=== PATIENT | female | born 1960 | race Caucasian/White ===

== ENCOUNTER 2020-12-02 14:18 | Emergency (ER) | payer OTHER, SELFPAY ==
[2020-12-02] VITALS (20 sets, daily range): BP systolic 106–160; BP diastolic 58–125; PULSE 63–78; RESP 12–20; TEMP 36.2; O2SAT 94–100
--- NOTE | ~2020-12-02 | CT_ITS ---
EXAMINATION: CT brain wo con DATE: 12/02/2020 14:26 INDICATION: Left facial droop and facial tingling. Slurred speech. TECHNIQUE: Computed tomography (CT) of the head was performed without intravenous contrast. The mA wa s adjusted according to patient size. Iterative reconstruction technique was employed. Exam dose: 60 5.33 mGy-cm total exam DLP. COMPARISON: 02/24/2019 CT brain FINDINGS: Chronic lacunar infarct at left anterior limb of internal capsule, left basal ganglia; this was subacute on 02/24/2019 CT brain. This previously effacement of the left frontal horn, which is no longer noted. There is no midline shift or mass effect effect. No intracranial mass lesion or hemorrhage. Normal ventricular size. Bilateral carotid siphon internal carotid artery calcifications are noted. No subdural or epidural hematoma. No fracture or bone destruction of the cranial vault. Included paranasal sinuses and mastoid air cell s are unremarkable. IMPRESSION: Chronic lacunar infarct at left anterior limb of internal capsule and left basal ganglia No acute intracranial finding Reviewed, dictated and finalized at [facility]. Reviewed, dictated and finalized at location [facility]. JOINER LOCKSTITCH
--- NOTE | 2020-12-02 14:33 | ED.NEUROSD ---
HPI - Neuro Symptoms/Deficit General Chief Complaint: Suspected CVA Stated Complaint: cva Time Seen by Provider: 12/02/20 14:33 History of Present Illness HPI Narrative: 60 yo female w/ h/o previous left sided stroke presents to the ED for stroke like symptoms. She first noted symptoms around 9 AM. At that time she noted numbness to the left side of her face. Shortly after that she noted slurred speech and facial droop. She then began to feel that the left sided of her body was slightly weaker than the right. She is currently being treated for bilateral otitis media. She denies any residual symptoms from her previous stroke. Related Data Allergies Allergy/AdvReac Type Severity Reaction Status Date / Time etodolac Allergy Unknown Unknown Verified 12/02/20 14:48 ibuprofen Allergy Unknown Palpitation Verified 12/02/20 14:48 s poison janet extract Allergy Unknown Unknown Verified 12/02/20 14:48 prednisone Allergy Unknown Unknown Verified 12/02/20 14:48 topiramate Allergy Unknown Unknown Verified 12/02/20 14:48 tramadol Allergy Unknown Unknown Verified 12/02/20 14:48 lodine Allergy Mild passed out Uncoded 12/02/20 14:48 Review of Systems Review of Systems: All systems reviewed & are unremarkable except as noted in HPI and below Constitutional: Constitutional: Denies chills and Denies fever(s) Eyes: Eyes: Reports no additional eye complaints ENT: Reports otalgia Cardiovascular: Cardiovascular: Denies chest pain and Denies dyspnea Respiratory: Respiratory: Denies dyspnea Gastrointestinal: Gastrointestinal: Reports no additional gastrointestinal complaints Genitourinary: Genitourinary: Reports no additional female genitourinary complaints Neurologic: Reports Abnormal speech present, Denies lack of coordination and Reports weakness PMFSH Past Medical History Medical History Acute cerebral infarction BMI 28.0-28.9,adult BMI 29.0-29.9,adult BMI 30.0-30.9,adult Hypothyroidism (acquired) Otitis media Uncontrolled type 2 diabetes mellitus with hyperglycemia Family History Family History Mother Diabetes mellitus Cerebrovascular accident Family history of pancreatic cancer Family history of thyroid disease Father Hypertension Family history of elevated blood lipids Sibling Diabetes mellitus Social History Social History Smoking status: Never smoker Second hand tobacco smoke exposure: Yes Alcohol intake: never Substance use: never Substance use type: does not use 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 Exam Const: General: healthy appearing, no acute distress and alert Orientation/consciousness: patient oriented x3 HENMT: Head: atraumatic Ears: TM abnormal erythematous bilateral Eyes: General: appearance normal, both eyes and all related structures Pupils: Equal, round and reactive pupils present EOM: EOMs intact bilaterally Neck: Neck: normal visual inspection Chest: Chest palpation & inspection: no tenderness Resp: Effort & Inspection: normal respiratory effort Auscultation: clear to auscultation bilaterally, no rales, no rhonchi and no wheezes Cardio: Jugular venous distension: no JVD Rate: regular rate Rhythm: regular rhythm Heart sounds: no murmurs GI: Inspection: non-distended GI Palp: Yes Soft to palpation and No Tenderness to palpation present (GI) Skin: General skin exam: normal color Neuro: General: patient oriented x3 and moves all extremities Cranial nerves: Yes Other cranial nerve findings present (left sided facial droop + inability to wrinkle forehead/raise eyebrow) Speech: normal speech Motor exam (neuro): Pronator motor function not present and Other motor observations present (5/5 BLE. Minimal decrease in left hip flexion) Extrem: General: no edema
--- NOTE | 2020-12-02 14:51 | ECG_ITS ---
Measurements Intervals [place] Rate: 62 P: 13 IA: 160 QRS: 58 QRSD: 102 T: 44 QT: 404 QTc: 410 Interpretive Statements SINUS RHYTHM NORMAL ECG Electronically Signed On 12-02-2020 15:46:15 RN ACUTE by Roberto Hammer D.O.
[2020-12-02 14:59] LABS: Glucose Point of Care 155 (65-105)
[2020-12-02 15:10] LABS: INR 0.9; Prothrombin Time 12.6 Seconds (11.1-14.7)
[2020-12-02 15:11] LABS: Partial Thromboplastin Time 26.9 SECONDS (22.3-36.8)
[2020-12-02 15:14] LABS: Alanine Aminotransferase 24 U/L (4-35); Albumin Level 4.4 g/dL (3.5-5.1); Alkaline Phosphatase 97 U/L (38-126); Anion Gap 8 mmol/L (8-16); Aspartate Amino Transferase 29 U/L (14-36); Bilirubin,Total 0.7 mg/dL (0.2-1.3); Blood Urea Nitrogen 10 mg/dL (7-17); Calcium 9.2 mg/dL (8.4-10.2); Carbon Dioxide 33 mmol/L (22-30); Chloride 100 mmol/L (98-107); Estimated CRCL calculation 67 ml/min; Estimated Glomerular Filt Rate > 60; Glucose 177 mg/dL (65-105); Potassium 3.6 mmol/L (3.4-5.0); Sodium 141 mmol/L (137-145)
[2020-12-02 16:01] LABS: Basophils Absolute Auto 0.1 K/mm3 (0.0-0.1); Basophils Percent Auto 0.9 % (0.2-1.2); Eosinophils Absolute Auto 0.2 K/mm3 (0-0.3); Eosinophils Percent Auto 4.2 % (0-4.4); Hematocrit 38.6 % (37.0-47.0); Hemoglobin 13.4 g/dL (12.0-15.0); Immature Granulocyte Absolute 0.03 K/mm3 (0.00-0.031); Immature Granulocyte Percent A 0.6 % (0-0.5); Lymphocytes Absolute Auto 1.51 K/mm3 (0.9-3.2); Lymphocytes Percent Auto 28.5 % (18.3-44.2); Mean Corpuscular HGB Conc 34.7 g/dl (32-36); Mean Corpuscular Hemoglobin 31.2 pg (26-34); Mean Platelet Volume 8.8 fl (7.4-10.4); Monocytes Absolute Auto 0.3 K/mm3 (0.1-0.6); Monocytes Percent Auto 4.9 % (2.6-8.5); Neutrophils Absolute Auto 3.2 K/mm3 (1.3-6.7); Neutrophils Percent Auto 60.9 % (45.5-73.1); Platelet Count Result 245 k/mm3 (150-375); Red Blood Count 4.29 M/mm3 (4.2-5.4); Red Cell Distribution Width 12.9 % (11.5-14.5); White Blood Count 5.3 K/mm3 (4.5-10.0)
[2020-12-02 16:27] LABS: Add Urine Microscopic? NO; Appearance Urine Clear (Clear); Bilirubin Urine Negative (Negative); Blood Urine Negative (Negative); Color Urine Colorless (Yellow); Glucose Urine UA Negative (Negative); Ketones Urine Negative (Negative); Leukocyte Esterase Ur Negative LEU/UL (Negative); Nitrate Urine Negative (Negative); Protein Urine Negative (Negative); Specific Grav Ur 1.005 (1.001-1.035); Urobilinogen Urine Negative mg/dL (<2.0)
--- NOTE | 2020-12-02 16:27 | PC.NURSE ---
Dr. Clark at bedside to discuss results with pt.
[2020-12-02] MEDS: valACYclovir HCL 500 MG TABLET 1000 MG PO (16:47)
== END 2020-12-02 16:57 | disposition home or self-care (01) ==
PROVIDERS: Emergency Provider Emergency Medicine; PCP Family Medicine
DX: G51.0 Bell's palsy (principal); H66.93 Otitis media, unspecified, bilateral; E03.9 Hypothyroidism, unspecified; E11.65 Type 2 diabetes mellitus with hyperglycemia; Z86.73 Personal history of transient ischemic attack (TIA), and cerebral infarction without residual deficits; Z79.84 Long term (current) use of oral hypoglycemic drugs
CPT/HCPCS: 36415; 70450; 80053; 81003; 82948; 85025; 85610; 85730; 93005; 99284; A9270

== ENCOUNTER 2020-12-21 09:07 | Observation (INO) | payer OTHER, SELFPAY ==
[2020-12-21] VITALS (10 sets, daily range): BP systolic 114–146; BP diastolic 51–80; PULSE 57–80; RESP 16–22; TEMP 36.3–36.9; O2SAT 95–100; BMI 28.8
--- NOTE | 2020-12-21 | ECHO_ITS ---
Patient Info Name: Angella Ward Age: 60 years : 1960 Gender: Female Ht: 61 in Wt: 152 lbs BSA: 1.75 m2 HR: 63 bpm BP: 121 / 60 mmHg Heart Rhythm: Sinus Rhythm Technical Quality: Good Exam Date: 12/21/2020 3:48 PM Exam Location: [facility] Pulmonary Exam Room: [facility] [place] Patient Status: Inpatient Admit Date: 12/21/2020 Staff Ordering Physician: Fouzia Cabezas NP Book Or Script Editor: Lisette Chaney RDCS Attending Provider: Mirna Mckeon MD Referring Physician: Jocelynn VARGHESE; Exam Type: CA echo doppler color flow Study Info Indications - CHEST PAIN Complete two-dimensional, color flow and Doppler transthoracic echocardiogram is performed. Summary 1. Complete two-dimensional, color flow and Doppler transthoracic echocardiogram is performed. 2. Left ventricular chamber dimension is normal. 3. Left ventricular systolic function is normal, estimated at 65-70%. 4. No wall motion abnormalities. 5. There is mild aortic valve sclerosis. Left Ventricle Left ventricular chamber dimension is normal. Left ventricular systolic function is normal, estimated at 65-70%. The left ventricular diastolic function is normal. No wall motion abnormalities. Right Ventricle Right ventricular chamber dimension is normal. Left Atria Left atrial chamber dimension is normal. Right Atria Right atrial chamber dimension is normal. Aortic Valve The aortic valve is trileaflet. There is mild aortic valve sclerosis. Pulmonic Valve The pulmonic valve is normal. Mitral Valve The mitral valve has normal leaflets. Tricuspid Valve The tricuspid valve leaflets are normal. Pericardium/Pleural The pericardium appears normal. Aorta The aortic root size at the sinus of Valsalva is normal. Left Ventricular Outflow Tract Name Value Normal LVOT 2D LVOT Diameter 2.0 cm LVOT Doppler LVOT Peak Gradient 4 mmHg LVOT Mean Gradient 2 mmHg LVOT VTI 21 cm LVOT VTI/AV VTI Ratio 0.8 LVOT Stroke Volume 67 ml LVOT CO 14.3 l/min LVOT CI 8.2 l/min/m2 Pulmonic Valve Name Value Normal PV Doppler PV Peak Gradient 3 mmHg Mitral Valve Name Value Normal MV Doppler MV Decel [place] 294 cm/s2 MV PHT 62 ms MV Area (PHT) 3.5 cm2 4.0-5.0 MV Diastolic Function
--- NOTE | ~2020-12-21 | XR_ITS ---
EXAMINATION: XR chest 1V portable EXAM DATE: 12/21/2020 10:18 INDICATION: Chest pain 2 times a day. TECHNIQUE: Portable AP frontal chest x-ray was obtained. Comparison is made to prior examination from 02/14/2019. FINDINGS: Right lateral sulcal granuloma. The lungs are otherwise clear. There are no pleural effusi ons. The cardiomediastinal silhouette is within normal limits. There is no pneumothorax suspected. The bones and soft tissues are unremarkable. IMPRESSION: No acute cardiopulmonary findings. Reviewed, dictated and finalized at location [facility].
[2020-12-21] MEDS: ASPIRIN 81 MG CHEWABLE TABLET 162 MG PO (09:36)
--- NOTE | 2020-12-21 09:45 | ED.CHESTPAIN ---
HPI - Chest Pain General Chief Complaint: Chest Pain <Gelacio Mcclain PA-C - Last Filed: 12/21/20 11:34> Stated Complaint: resolved CP <Gelacio Mcclain PA-C - Last Filed: 12/21/20 11:34> Source: patient <Gelacio Mcclain PA-C - Last Filed: 12/21/20 11:34> Mode of arrival: ambulatory <Gelacio Mcclain PA-C - Last Filed: 12/21/20 11:34> Limitations: no limitations <Gelacio Mcclain PA-C - Last Filed: 12/21/20 11:34> History of Present Illness HPI narrative: Patient 60-year-old female who presents with an episode of sharp pain in the substernal region left-sided persisted for several minutes and resolved and then experienced fatigue and has continued heaviness over the chest. Patient notes yesterday she felt fatigued but otherwise has felt fine in the recent past. Patient denies any fever chills nausea vomiting. Patient had Field's palsy 3 weeks ago which is nearly resolved involve the left side of the face. Patient denies injury or trauma or other complaints patient has been compliant with her medication <Gelacio Mcclain PA-C - Last Filed: 12/21/20 11:34> Related Data Allergies/Adverse Reactions: Allergies Allergy/AdvReac Type Severity Reaction Status Date / Time iodine Allergy Mild Other Verified 12/21/20 09:29 etodolac Allergy Unknown Unknown Verified 12/21/20 09:20 ibuprofen Allergy Unknown Palpitation Verified 12/21/20 09:20 s poison janet extract Allergy Unknown Unknown Verified 12/21/20 09:20 prednisone Allergy Unknown Unknown Verified 12/21/20 09:20 tramadol Allergy Unknown Unknown Verified 12/21/20 09:20 topiramate AdvReac Unknown Elevated Verified 12/21/20 09:20 glucose <Gelacio Mcclain PA-C - Last Filed: 12/21/20 11:34> Review of Systems Review of Systems: All systems reviewed & are unremarkable except as noted in HPI and below <Gelacio Mcclain PA-C - Last Filed: 12/21/20 11:34> PMFSH Past Medical History Medical History: Medical History Acute cerebral infarction Field's palsy BMI 28.0-28.9,adult BMI 29.0-29.9,adult BMI 30.0-30.9,adult Hypothyroidism (acquired) Otitis media Uncontrolled type 2 diabetes mellitus with hyperglycemia <Gelacio Mcclain PA-C - Last Filed: 12/21/20 11:34> Family History Family History: Family History (Reviewed 12/16/20 @ 15:31 by Idalia Livingston, [facility]) Mother Diabetes mellitus Cerebrovascular accident Family history of pancreatic cancer Family history of thyroid disease Father Hypertension Family history of elevated blood lipids Sibling Diabetes mellitus <Gelacio Mcclain PA-C - Last Filed: 12/21/20 11:34> Social History Social History: Social History Second hand tobacco smoke exposure: Yes Alcohol intake: never Substance use: never Substance use type: does not use 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 <Gelacio Mcclain PA-C - Last Filed: 12/21/20 11:34> Exam Narrative: Exam Narrative: GENERAL: Well-appearing, well-nourished, and in no acute distress. HEAD: Normocephalic, atraumatic. EYES: PERRLA and EOMI. ENT: Nares clear, no rhinorrhea or epistaxis. Mucous membranes moist. CHEST: Clear to auscultation. No respiratory distress. No wheezes rales or rhonchi HEART: Regular rate and rhythm. No murmur heard. Normal peripheral pulses. ABDOMEN: Soft, nontender, nondistended, normal active bowel sounds. EXTREMITIES: Normal range of motion. No edema. SKIN: Warm, dry, no rash. NEURO: No focal deficits. Alert and oriented x3. Cranial nerves II through XII grossly intact PSYCH: Normal mood and affect. <Gelacio Mcclain PA-C - Last Filed: 12/21/20 11:34> Course Course Emergency Course: Patient was found to be hyperglycemic had resolution of chest pain after nitroglycerin has remained chest pain-free only sy
[2020-12-21 10:04] LABS: Basophils Percent Auto 0.2 % (0.2-1.2); Eosinophils Absolute Auto 0.2 K/mm3 (0-0.3); Eosinophils Percent Auto 1.4 % (0-4.4); Hemoglobin 16.4 g/dL (12.0-15.0); Immature Granulocyte Absolute 0.08 K/mm3 (0.00-0.031); Immature Granulocyte Percent A 0.7 % (0-0.5); Lymphocytes Absolute Auto 2.07 K/mm3 (0.9-3.2); Lymphocytes Percent Auto 17.5 % (18.3-44.2); Mean Corpuscular HGB Conc 34.9 g/dl (32-36); Mean Corpuscular Hemoglobin 31.3 pg (26-34); Mean Corpuscular Volume 89.7 fl (80-100); Mean Platelet Volume 9.1 fl (7.4-10.4); Monocytes Absolute Auto 0.5 K/mm3 (0.1-0.6); Monocytes Percent Auto 4.4 % (2.6-8.5); Neutrophils Percent Auto 75.8 % (45.5-73.1); Platelet Count Result 299 k/mm3 (150-375); Red Blood Count 5.24 M/mm3 (4.2-5.4); Red Cell Distribution Width 13.7 % (11.5-14.5); White Blood Count 11.9 K/mm3 (4.5-10.0)
[2020-12-21 10:16] LABS: Alanine Aminotransferase 42 U/L (4-35); Albumin Level 4.6 g/dL (3.5-5.1); Alkaline Phosphatase 105 U/L (38-126); Anion Gap 6 mmol/L (8-16); Aspartate Amino Transferase 25 U/L (14-36); Bilirubin,Total 1.1 mg/dL (0.2-1.3); Blood Urea Nitrogen 16 mg/dL (7-17); Calcium 9.3 mg/dL (8.4-10.2); Carbon Dioxide 34 mmol/L (22-30); Chloride 94 mmol/L (98-107); Estimated CRCL calculation 52 ml/min; Estimated Glomerular Filt Rate > 60; Glucose 459 mg/dL (65-105); INR 0.8; Lipase 164 U/L (23-300); Potassium 4.2 mmol/L (3.4-5.0); Prothrombin Time 11.9 Seconds (11.1-14.7); Sodium 134 mmol/L (137-145)
[2020-12-21 10:18] LABS: Add Urine Microscopic? YES; Appearance Urine Clear (Clear); Bilirubin Urine Negative (Negative); Blood Urine Negative (Negative); Color Urine Yellow (Yellow); Glucose Urine UA 3+ mg/dL (Negative); Ketones Urine Negative (Negative); Leukocyte Esterase Ur Negative LEU/UL (Negative); Nitrate Urine Negative (Negative); Protein Urine Negative (Negative); RBC Urine 0-2 /hpf (0-2); Squamous Epithelial Cell Urine Occasional /hpf (Few); Urobilinogen Urine Negative mg/dL (<2.0); WBC Urine 0-3 /hpf
[2020-12-21 10:19] LABS: Specific Grav Ur 1.037 (1.001-1.035)
[2020-12-21 10:28] LABS: Troponin I < 0.012 ng/mL (0.000-0.034)
[2020-12-21 10:31] LABS: D Dimer 0.27 ug/mL (<0.48)
[2020-12-21] MEDS: SODIUM CHLORIDE 0.9% IV 1,000 ML 999 ML IV CONT (10:42)
[2020-12-21 10:54] LABS: Alveolar/Arterial O2 Gradient 33.3 mmHg; Base Excess ABG 3.1 mEq/l (+/-2.0); Carboxyhemoglobin 0.7 % THb (0-2.0); Fractional Inspired Oxygen 21 %; HCO3 ABG 26.8 mEq/l (22.0-26.0); Methemoglobin ABG 0.3 %THb (0-1.5); Oxygen Content ABG 18.7 %vol (16.0-22.0); Oxygen Saturation ABG 95.2 % (95.0-100.0); Oxyhemoglobin 92.9 % THb (90.0-100.0); PCO2 ABG 37.9 mmHg (35.0-45.0); PO2 FiO2 Ratio Arterial Blood 3.38 %; Reduced Hemoglobin 6.1 %THb (0-5.0); Total Hemoglobin 14.3 g/dL (12.0-18.0); pH ABG 7.467 (7.350-7.450)
[2020-12-21 10:55] LABS: Device ROOM AIR; Modified Allen's Test Pass; Site Drawn RIGHT RADIAL
[2020-12-21 11:28] LABS: Magnesium 1.7 mg/dL (1.6-2.3)
[2020-12-21 11:54] LABS: Beta-Hydroxybutyrate/Acetoacetate 0.16 mmol/L (0.02-0.27)
[2020-12-21 13:02] LABS: Cholesterol 149 mg/dL (0-200); HDL Direct 31 mg/dL; Triglycerides 315 mg/dL (<150)
[2020-12-21 13:12] LABS: LDL Cholesterol Direct 85 mg/dL; Troponin I < 0.012 ng/mL (0.000-0.034)
--- NOTE | 2020-12-21 14:01 | ADMGEN ---
This patient, Angella Ward, was admitted to IMU Room 206-01 at 1400. Patient/family oriented to hospital policies and general routines including ID bracelet, bed and alarms, visiting hours, pain management, procedures, bathroom and other care routines, personal items, smoking policy, room service/diet, and visiting hours. Information on how to activate the Rapid Response Team has been discussed. Patient/Family are encouraged to report perceived risks to care and to ask questions if they do not understand what they are told or what they should do.
--- NOTE | 2020-12-21 14:41 | PM.IMHP ---
H&P: HPI History of Present Illness Date/Time: 12/21/20 14:41 this is a 60-year-old diabetic patient who recently was diagnosed with Field's palsy. She has been on prednisone and her blood sugars have been running high. The patient stated that she was at work today and she developed some chest pressure as well as diaphoresis. She was not sure if this was her acid reflux but it felt a little bit different that her acid reflux. She does have a history of having severe GERD. It did not radiate anywhere the patient had episode of sharp pain in the substernal region left-sided persisted for several minutes and resolved and then experience fatigue and has continued heaviness over the chest. The patient also felt fatigued yesterday. No fever no chills. No nausea no vomiting. This did not radiate to her neck or arm. Patient stated that the pain has subsided. Her blood sugar was noted to be 459. Her troponin was negative. Lipase was negative but her magnesium is 1.7. Her white count was noted to be 11.9. Heart score was noted to be a 4. Sinus rhythm. Chest x-ray was read as no acute cardiopulmonary findings. The patient was given aspirin and IV fluids. The patient has no complaints of discomfort at this time. The patient is being admitted to observation date of service of 12/21/2020. Chief Complaint: Chest pain Review of Systems Review of Systems: All systems reviewed & are unremarkable except as noted in HPI and below Constitutional: Constitutional: Reports as per HPI and Reports no additional constitutional complaints Eyes: Eyes: Reports as per HPI and Reports no additional eye complaints ENT: Reports system reviewed and no additional complaints, except as documented and Reports Normal hearing present Cardiovascular: Cardiovascular: Reports no additional cardiovascular complaints Respiratory: Respiratory: Reports no additional respiratory complaints and Reports no additional respiratory complaints Gastrointestinal: Gastrointestinal: Reports as per HPI and Reports no additional gastrointestinal complaints Musculoskeletal: Musculoskeletal: Reports no additional musculoskeletal complaints Integumentary/Breasts: Skin/Breast: Reports system reviewed and no additional complaints, except as docu and Reports as per HPI Neurologic: Reports system reviewed and no additional complaints, except as documented, Reports as per HPI and Reports Normal hearing present Psychiatric: Psychiatric: Reports no additional psychiatric complaints and Reports as per HPI Endocrine: Endocrine: Reports no additional endocrine complaints Hematologic/Lymphatic: Hematologic/Lymphatic: Reports no additional hematologic/lymphatic complaints Allergic/Immunologic: Allergic/Immunologic: Reports no additional allergic/immunologic complaints [facility] Past Medical History Medical History (Updated 12/21/20 @ 14:49 by Fouzia Cabezas NP) Acute cerebral infarction Field's palsy BMI 28.0-28.9,adult BMI 29.0-29.9,adult BMI 30.0-30.9,adult Hyperlipidemia Hypothyroidism (acquired) Otitis media Uncontrolled type 2 diabetes mellitus with hyperglycemia Surgical History Surgical History (Updated 12/21/20 @ 14:56 by Fouzia Cabezas NP) H/O left knee surgery History of tonsillectomy S/P foot surgery, left Family History Family History Mother Diabetes mellitus Cerebrovascular accident Family history of pancreatic cancer Family history of thyroid disease Father Hypertension Family history of elevated blood lipids Sibling Diabetes mellitus Social History Social History (Updated 12/21/20 @ 14:58 by Fouzia Cabezas NP) Social History: The patient works at a [employer]. The patient lives with her and she has 3 sons. The patient is a lifelong nonsmoker. She does not use any marijuana, alcohol or illicit drugs. Patient desires to be a full code. Her is a durable
[2020-12-21 15:29] LABS: Troponin I < 0.012 ng/mL (0.000-0.034)
[2020-12-21] MEDS: INSULIN ASPART (*BKC) 100 UNITS/ML SUB-Q (16:10)
--- NOTE | 2020-12-21 16:38 | PM.CNCAR ---
Assessment and Plan Additional Plan 60-year-old woman with: Episode of chest pain that was self-limited this morning while she was at work. Symptoms on the surface are rather atypical and not very suggestive of myocardial ischemia. She does have risk factors including hypertension non insulin-dependent diabetes and dyslipidemia. She is a lifelong nonsmoker. She has already ruled out for ACS with 3-troponin levels. Because of her risk factor profile I am going to request a stress echocardiogram to be done tomorrow morning. Hopefully that will be negative and if so she can be dismissed for follow-up with her PCP. Abdoulaye Vail MD [facility] History of Present Illness History of Present Illness Consult date/time: 12/21/20 16:38 Consult reason: chest pain Reason For Visit: Chest pain, hyperglycemia Narrative: This is a very pleasant 60-year-old lady I saw at this afternoon at the request of the hospitalist because of chest pain for which she was seen in the emergency room this morning. 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 The patient describes a sharp knife-like pain in the left precordial region that lasted for about 3-5 minutes she estimates. She reported the symptoms to coworkers and an ambulance was called and she was brought to the emergency room for further evaluation and management. In the emergency room she was asymptomatic she had an evaluation done there that showed her ECG to be normal her troponins were negative and she was admitted for further observation/management. She is enjoying her lunch when I entered the room to see her in does not offer any other complaints. She states that she has never been known to have any cardiac problems in the past she does not exert herself in an exercise program of any sort but she does lead a reasonably active lifestyle and has not noticed exertional symptoms of any kind. She specifically denies any exertional chest pain pressure or heaviness she has not been having palpitations orthopnea PND or edema she has never had a syncopal episode. Review of Systems Constitutional: Constitutional: Reports no additional constitutional complaints Eyes: Eyes: Reports no additional eye complaints ENT: Reports system reviewed and no additional complaints, except as documented Cardiovascular: Cardiovascular: Reports as per HPI Respiratory: Respiratory: Reports no additional respiratory complaints Gastrointestinal: Gastrointestinal: Reports no additional gastrointestinal complaints Musculoskeletal: Musculoskeletal: Reports no additional musculoskeletal complaints Integumentary/Breasts: Skin/Breast: Reports system reviewed and no additional complaints, except as docu Neurologic: Reports system reviewed and no additional complaints, except as documented Endocrine: Endocrine: Reports no additional endocrine complaints Hematologic/Lymphatic: Hematologic/Lymphatic: Reports no additional hematologic/lymphatic complaints Allergic/Immunologic: Allergic/Immunologic: Reports no additional allergic/immunologic complaints PMFSH Past Medical History Medical History (Updated 12/21/20 @ 14:49 by Fouzia Cabezas NP) Acute cerebral infarction Field's palsy BMI 28.0-28.9,adult BMI 29.0-29.9,adult BMI 30.0-30.9,adult Hyperlipidemia Hypothyroidism (acquired) Otitis media Uncontrolled type 2 diabetes mellitus with hyperglycemia Surgical History Surgical History (Updated 12/21/20 @ 14:56 by Fouzia Cabezas NP) H/O left knee surgery History of tonsillectomy S/P foot surgery, left Family History Family History Mother Diabetes mellitus Cerebrovascular accident Family history of pancreatic cancer Family history of thyroid disease Father Hyperte
[2020-12-21 16:44] LABS: Troponin I < 0.012 ng/mL (0.000-0.034)
[2020-12-21 16:56] LABS: Glucose Point of Care 287 (65-105)
--- NOTE | 2020-12-21 17:34 | ECG_ITS ---
Measurements Intervals [place] Rate: 76 P: 41 PA: 150 QRS: 13 QRSD: 97 T: 24 QT: 362 QTc: 408 Interpretive Statements SINUS RHYTHM MINIMAL Q WAVES- INFERIOR LEADS BASELINE ARTIFACT- I, II, AVR, AVL, V6 BORDERLINE ECG Electronically Signed On 12-21-2020 12:45:08 CDT by Roberto Hammer D.O.
[2020-12-21 20:50] LABS: Glucose Point of Care 221 (65-105)
[2020-12-21] MEDS: ACETAMINOPHEN 325 MG TABLET 650 MG PO (23:16)
[2020-12-22] VITALS (11 sets, daily range): BP systolic 108–114; BP diastolic 47–64; PULSE 52–89; RESP 14–16; TEMP 35.7–36.7; O2SAT 94–100; BMI 29.5
--- NOTE | 2020-12-22 | EST_ITS ---
Patient Info Name: Angella Ward Age: 60 years : 1960 Gender: Female Ht: 61 in Wt: 152 lbs BSA: 1.75 m2 Heart Rhythm: Sinus Rhythm Technical Quality: Good Exam Date: 12/22/2020 11:16 AM Exam Location: [facility] Pulmonary Patient Status: Inpatient Admit Date: 12/21/2020 Staff Ordering Physician: Abdoulaye Vail MD Beater Engineer Helper: Jayce Bender RDCS, RT Attending Provider: hemant webster md Referring Physician: Yared RAYMOND; Exercise Technologist: Rosario Nix RDCS Exercise Physician: Hemant Webster MD Exam Type: CA stress echo Study Info Indications R07.9 - Chest pain, unspecified Treadmill exercise stress echocardiogram is performed. Summary 1. At rest, normal left ventricular systolic function with no regional wall motion abnormalities noted at rest with exception of septal bounce. 2. Left ventricular ejection fraction hyperdynamic without wall motion abnormalities, smaller chamber size post stress. 3. No abnormal ST/T wave changes with exercise. 4. No arrhythmias were observed during the examination. 5. Negative stress echocardiogram for ischemia by wall motion analysis. 6. Maximal treadmill stress EKG study achieving 89% of age predicted maximum heart rate and 4.7 METs at peak exercise.\E\. 7. Poor exercise tolerance for age. 8. Normal heart rate and blood pressure response to exercise. 9. No stress-induced chest pain or arrhythmias. 10. Rosa treadmill score +2 indicating intermediate risk for adverse cardiovascular events over the next 5 years. Clinical correlation advised. Stress Echo Findings Left Ventricle At rest, normal left ventricular systolic function with no regional wall motion abnormalities noted at rest with exception of septal bounce. Left ventricular ejection fraction hyperdynamic without wall motion abnormalities, smaller chamber size post stress. Normal augmentation of all wall segments without evidence of ischemia with stress. Protocol: Jayce Stress ECG Details Stage: REST Duration (min): 11 min : 37 sec Speed (mph): 0.0 Grade (%): 0 HR (bpm): 65 SBP (mmHg): 121 DBP (mmHg): 65 METS: --- Stage: REST Duration (min): 19 min : 0 sec Speed (mph): 0.0 Grade (%): 0 HR (bpm): 79 SBP (mmHg): 121 DBP (mmHg): 65 METS: --- Stage: STAGE 1 Duration (min): 1 min : 0 sec Speed (mph): 1.7 Grade (%): 10 HR (bpm): 114 SBP (mmHg): 121 DBP (mmHg): 65 METS: --- Stage: STAGE 1 Duration (min): 2 min : 0 sec Speed (mph): 1.7 Grade (%): 10 HR (bpm): 139 SBP (mmHg): 121 DBP (mmHg): 65 METS: --- Stage: STAGE 1 Duration (min): 2 min : 13 sec Speed (mph): 1.7 Grade (%): 10 HR (bpm): 142 SBP (mmHg): 121 DBP (mmHg): 65 METS: --- Stage: RECOVERY Duration (min): 0 min : 46 sec Speed (mph): 0.0 Grade (%): 0 HR (bpm): 113 SBP (mmHg): 184 DBP (mmHg): 121 METS: --- Stage: RECOVERY Duration (min): 1 min : 46 sec Speed (mph): 0.0 Grade (%): 0 HR (bpm): 78 SBP (mmHg): 184 DBP (mmHg): 121 METS: --- Stage: RECOVERY Duration (min): 2 min :
[2020-12-22 05:29] LABS: Alanine Aminotransferase 29 U/L (4-35); Albumin Level 3.4 g/dL (3.5-5.1); Alkaline Phosphatase 78 U/L (38-126); Anion Gap 3 mmol/L (8-16); Aspartate Amino Transferase 22 U/L (14-36); Bilirubin,Total 0.6 mg/dL (0.2-1.3); Blood Urea Nitrogen 12 mg/dL (7-17); Calcium 8.1 mg/dL (8.4-10.2); Carbon Dioxide 32 mmol/L (22-30); Chloride 100 mmol/L (98-107); Estimated CRCL calculation 65 ml/min; Estimated Glomerular Filt Rate > 60; Glucose 247 mg/dL (65-105); Magnesium 1.6 mg/dL (1.6-2.3); Potassium 3.5 mmol/L (3.4-5.0); Sodium 135 mmol/L (137-145)
[2020-12-22 05:35] LABS: Hemoglobin A1C 9.2 % (<5.7)
[2020-12-22 08:40] LABS: Glucose Point of Care 218 (65-105)
[2020-12-22] MEDS: LEVOTHYROXINE SODIUM 100 MCG TABLET PO (08:47)
[2020-12-22] MEDS: POTASSIUM CHLORIDE 20 MEQ TABLET 40 MEQ PO (08:47)
[2020-12-22] MEDS: metFORMIN HCL XR 500 MG TAB.SR.24H 2000 MG PO (08:47)
[2020-12-22] MEDS: PANTOPRAZOLE 40 MG TABLET PO (08:47)
[2020-12-22] MEDS: MAGNESIUM OXIDE 400 MG TABLET PO (08:47)
[2020-12-22] MEDS: lisinopriL 10 MG TABLET PO (08:47)
[2020-12-22] MEDS: ATORVASTATIN 40 MG TABLET 80 MG PO (08:48)
[2020-12-22] MEDS: ASPIRIN 81 MG CHEWABLE TABLET 160 MG PO (08:48)
[2020-12-22] MEDS: INSULIN ASPART (*BKC) 100 UNITS/ML SUB-Q (08:52)
[2020-12-22 12:36] LABS: Glucose Point of Care 179 (65-105)
--- NOTE | 2020-12-22 13:10 | PM.PNCARD ---
Progress Note: A&P Assessment and Plan (1) Chest pain: Code(s): R07.9 - Chest pain, unspecified Status: Acute Assessment and Plan: Resolved, ruled out for myocardial infarction. Negative treadmill stress echocardiogram normal LV size and function with hyperdynamic response without evidence of EKG or echocardiographic ischemia, poor exercise tolerance achieving greater than 85% age predicted maximum heart rate. Follow-up with primary care physician as an outpatient. Atypical chest pain ruled out for PA and with negative stress echocardiogram. Okay for discharge per hospitalist service. Please do not hesitate to contact us with any additional questions or concerns. (2) Hyperlipidemia: Code(s): E78.5 - Hyperlipidemia, unspecified Status: Chronic Assessment and Plan: Continue atorvastatin (3) Essential hypertension: Code(s): I10 - Essential (primary) hypertension Status: Acute Assessment and Plan: BP control (4) Uncontrolled type 2 diabetes mellitus with hyperglycemia: Code(s): E11.65 - Type 2 diabetes mellitus with hyperglycemia Status: Acute Assessment and Plan: Per primary service. Subjective Date/time seen: Date of service: 12/22/20 13:10 Follow-up for chest pain. No recurrent chest pain. No new complaints morning other than feeling tired. Patient evaluated treadmill stress echocardiogram. Negative study without reversible ischemia by EKG or echocardiogram. Patient had poor exercise tolerance no exertional chest pain but complained of feeling fatigued. Review of Systems Review of Systems: All systems reviewed & are unremarkable except as noted in HPI and below Constitutional: Constitutional: Reports as per HPI, Reports no additional constitutional complaints and Reports fatigue Eyes: Eyes: Reports as per HPI and Reports no additional eye complaints ENT: Reports system reviewed and no additional complaints, except as documented and Reports as per HPI Cardiovascular: Cardiovascular: Reports as per HPI and Reports no additional cardiovascular complaints Respiratory: Respiratory: Reports as per HPI and Reports no additional respiratory complaints Gastrointestinal: Gastrointestinal: Reports as per HPI and Reports no additional gastrointestinal complaints Genitourinary: Genitourinary: Reports no additional female genitourinary complaints and Reports as per HPI Musculoskeletal: Musculoskeletal: Reports no additional musculoskeletal complaints and Reports as per HPI Integumentary/Breasts: Skin/Breast: Reports system reviewed and no additional complaints, except as docu and Reports as per HPI Neurologic: Reports system reviewed and no additional complaints, except as documented and Reports as per HPI Psychiatric: Psychiatric: Reports no additional psychiatric complaints and Reports as per HPI Endocrine: Endocrine: Reports no additional endocrine complaints and Reports as per HPI Hematologic/Lymphatic: Hematologic/Lymphatic: Reports no additional hematologic/lymphatic complaints and Reports as per HPI Allergic/Immunologic: Allergic/Immunologic: Reports no additional allergic/immunologic complaints and Reports as per HPI Exam Const: General: comfortable and no acute distress Other: Well-developed well-nourished white female resting comfortably in bed eating her meal HENMT: Mouth: Yes moist mucous membranes Eyes: Sclera: sclerae normal Pupils: Equal, round and reactive pupils present Neck: Neck: supple and no JVD Thyroid: thyroid normal Resp: Effort & Inspection: normal respiratory effort Auscultation: clear to auscultation bilaterally Cardio: Rate: regular rate Rhythm: regular rhythm Other: Patient has a very soft grade 1-2 systolic murmur that does not appear to radiate from the left sternal border GI: Auscultation: normal bowel sounds Skin: General skin exam: normal color Neuro: Cranial nerves: Yes Equal, round and reactiv
--- NOTE | 2020-12-22 13:59 | PM.DS ---
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 She has been on prednisone and her blood sugars have been running high. The patient stated that she was at work today and she developed some chest pressure as well as diaphoresis. She was not sure if this was her acid reflux but it felt a little bit different that her acid reflux. She does have a history of having severe GERD. It did not radiate anywhere the patient had episode of sharp pain in the substernal region left-sided persisted for several minutes and resolved and then experience fatigue and has continued heaviness over the chest. The patient also felt fatigued yesterday. No fever no chills. No nausea no vomiting. This did not radiate to her neck or arm. Patient stated that the pain has subsided. Her blood sugar was noted to be 459. Her troponin was negative. Lipase was negative but her magnesium is 1.7. Her white count was noted to be 11.9. Heart score was noted to be a 4. Sinus rhythm. Chest x-ray was read as no acute cardiopulmonary findings. The patient was given aspirin and IV fluids. The patient has no complaints of discomfort at this time. The patient is being admitted to observation date of service of 12/21/2020. Chief Complaint: Chest pain Hospital Course: Patient 3 sets of cardiac enzymes were negative and there was no acute changes on EKG, NV was ruled out, to further evaluate patient had stress cardiac echo which was essentially normal without any sign or symptoms or ischemia. Patient is clinically stable, will discharge patient to follow up with her primary care provide as soon as possible, patient is instructed if any symptoms redevelop to go to nearest ER. Status at Discharge Functional status at discharge: independent ambulation Overall status at discharge: patient is back to baseline Time Spent with Patient Time attestation: Total time spent providing and/or coordinating discharge services: Patient was seen and examined at the time of the discharge Condition at discharge is stable Code status: Full code. Time spent preparing discharge summary, discharge medications, discussing discharge planning with therapeutic case manager and patient is 35 minutes. Time spent: Greater than 30 minutes Exam Narrative: Exam Narrative: Patient is comfortable, NAD HEENT: eyes are clear and none icteric LUNGS:CTA HEART: RR S1S2 ABD: BS+, Soft and nontender Lower extremities: no edema SKIN: nonjaundiced Neuro: grossly intact. DS: Data Data Completed and Pending Labs on day of discharge: Labs from last 24 hours 12/22/20 12/22/20 12/22/20 11:43 07:48 04:28 Sodium Potassium Chloride Carbon Dioxide Anion Gap BUN Creatinine Estim Creat Clear Calc Estimated GFR Glucose POC Capillary Glucose 179 H 218 H Hemoglobin A1c Calcium Magnesium Total Bilirubin AST ALT Alkaline Phosphatase Troponin I Total Protein Albumin TSH (Reflex) 1.730 12/22/20 12/22/20 12/21/20 04:28 04:28 20:07 Sodium 135 L Potassium 3.5 Chloride 100 Carbon Dioxide 32 H Anion Gap 3 L BUN 12 Creatinine 0.70 Estim Creat Clear Calc 65 Estimated GFR > 60 Glucose 247 H POC Capillary Glucose 221 H Hemoglobin A1c 9.2 H Calcium 8.1 L Magnesium 1.6 Total Bilirubin 0.6 AST 22 ALT 29 Alkaline Phosphatase 78 Troponin I Total Protein 6.0 L Albumin 3.4 L TSH (Reflex) 12/21/20 12/21/20 12/21/20 16:07 16:06 14:45 Sodium Potassium Chloride Carbon Dioxide Anion Gap BUN Creatinine Estim Creat Clear Calc Estimated GFR Glucose POC Capillary Glucose 287 H Hemoglobin A1c Calcium Magnesium Total Bilirubin AST ALT Alkaline Phosphatase
== END 2020-12-22 14:55 | disposition home or self-care (01) ==
LOC: ANHED 11:44 → ANHIMU 16:28
PROVIDERS: Emergency Medicine Emergency Medical Services; Nurse Practitioner; Admitting Provider Family Medicine; Emergency Provider Emergency Medicine; PCP Family Medicine; Visit Provider Family Medicine
DX: R07.9 Chest pain, unspecified (principal); E11.65 Type 2 diabetes mellitus with hyperglycemia; I10 Essential (primary) hypertension; E78.2 Mixed hyperlipidemia; K21.9 Gastro-esophageal reflux disease without esophagitis; E03.9 Hypothyroidism, unspecified; G51.0 Bell's palsy; Z86.73 Personal history of transient ischemic attack (TIA), and cerebral infarction without residual deficits; Z79.84 Long term (current) use of oral hypoglycemic drugs
CPT/HCPCS: 36415; 36600; 71045; 80053; 80061; 81001; 82010; 82375; 82805; 82948; 83036; 83050; 83690; 83735; 84443; 84484; 85025; 85380; 85610; 85730; 93005; 93306; 93351; 96360; 99285; A9270; G0378; J1815; J7030

== ENCOUNTER 2020-12-23 10:13 | Outpatient (CLI) | payer OTHER, SELFPAY ==
--- NOTE | ~2020-12-23 | US_ITS ---
EXAMINATION: US abdomen complete EXAM DATE: 12/23/2020 10:54 INDICATION: R63.4 -Abnormal weight loss. Left upper abdominal pain. TECHNIQUE: Multiple grayscale and Doppler images of the complete abdomen were obtained (by a technolo gist who performed the scan) and subsequently reviewed. Comparison is made to prior examination from 02/26/2018. FINDINGS: The abdominal aorta is normal in caliber. Visualized portion IVC is patent. The pancreatic head a nd body are normal in appearance. The pancreatic tail is not visualized. There is echogenic liver parenchyma, hepatic steatosis. There are no focal liver lesions identified. There is no evidence of intrahepatic biliary duct dilation. Portal venous flow was seen in the he patopedal, normal direction and has normal Doppler waveform. Common bile duct measures 4 mm, which is normal. The gallbladder wall is normal in thickness, with ex pected amount of distention. No sonographic evidence of pericholecystic fluid. There is a 4 mm gall bladder neck polyp, too small to recommend follow-up. Technologist performing exam reports patient d id not demonstrate sonographic Bender's sign. Please note that this sign is less reliable in patient s who have received pain medication. Right kidney: There is normal contour and echogenicity. It measures 11.0 x 4.5 x 5.0 centimeters. There are no focal renal lesions identified. There is no hydronephrosis. Left kidney: There is normal contour and echogenicity. It measures 9.8 x 5.1 x 5.5 centimeters. Th ere are no focal renal lesions identified. There is no hydronephrosis. The spleen measures 10.8 centimeters and is morphologically normal. IMPRESSION: 1. Hepatic steatosis. 2. Tiny gallbladder polyp likely benign. Reviewed, dictated and finalized at location A.
== END 2020-12-23 10:14 | disposition home or self-care (01) ==
PROVIDERS: PCP Family Medicine; Visit Provider Nurse Practitioner Family
DX: R10.12 Left upper quadrant pain (principal); R63.4 Abnormal weight loss; K76.0 Fatty (change of) liver, not elsewhere classified
CPT/HCPCS: 76700

== ENCOUNTER → 2020-12-26 06:54 | Outpatient (CLI) | payer OTHER, SELFPAY ==
[2020-12-26 19:13] LABS: SARS-CoV-2 RNA PCR Negative
== END ==
PROVIDERS: PCP Family Medicine; Visit Provider Nurse Practitioner Family
DX: Z20.822 Contact with and (suspected) exposure to COVID-19 (principal); J02.9 Acute pharyngitis, unspecified
CPT/HCPCS: C9803; U0003; U0005

== ENCOUNTER → 2021-02-22 09:03 | Outpatient (CLI) | payer OTHER, SELFPAY ==
[2021-02-22 18:48] LABS: SARS-CoV-2 RNA PCR Negative
== END ==
PROVIDERS: PCP Family Medicine; Visit Provider Nurse Practitioner Family
DX: Z20.822 Contact with and (suspected) exposure to COVID-19 (principal); R43.9 Unspecified disturbances of smell and taste
CPT/HCPCS: C9803; U0003; U0005

== ENCOUNTER 2021-04-16 13:19 | Outpatient (CLI) | payer OTHER, SELFPAY ==
--- NOTE | ~2021-04-16 | US_ITS ---
EXAMINATION: US art doppler w press UE BI DATE: 04/16/2021 17:41 CDT INDICATION: Arm pain and numbness TECHNIQUE: Segmental pressures and plethysmographic and Doppler waveforms of the upper extremity lamberto martha were obtained. COMPARISON: None. FINDINGS: Right and left brachial artery pressures of 152 mm Hg and 146 mm Hg, respectively, are concordant (no rmal difference <= 30 mmHg). The right finger:brachial systolic pressure ratio is 1.01 (normal > 0.8) . Segmental pressure gradients are normal. Arterial Doppler waveforms are biphasic (normal upstroke < 0.2 s). The left finger:brachial systolic pressure ratio is 1.14. Segmental pressure gradients are normal. Ar terial Doppler waveforms are biphasic. IMPRESSION: 1. Normal bilateral upper extremity arterial Doppler. Reviewed, dictated and finalized at location A.
== END 2021-04-16 13:20 | disposition home or self-care (01) ==
PROVIDERS: PCP Family Medicine; Visit Provider Nurse Practitioner Family
DX: R20.0 Anesthesia of skin (principal); L91.9 Hypertrophic disorder of the skin, unspecified; M79.603 Pain in arm, unspecified
CPT/HCPCS: 93923

== ENCOUNTER 2021-04-28 09:27 | Outpatient (CLI) | payer OTHER, SELFPAY ==
--- NOTE | 2021-04-28 11:00 | NEURO_ITS ---
Impression: # Complains of numbness of left upper extremity. # No Carpal Tunnel Syndrome or ulnar neuropathy. # Normal needle/EMG exam proximally and distally. # Higher involvement needs to be ruled out. Nerve Conduction Studies Anti Sensory Summary Table Stim Site NR Peak (ms) P-T Amp (?V) Site1 Site2 Delta-P (ms) Dist (cm) Andrade (m/s) Left Median Anti Sensory (2-3nd Digit) Wrist 3.1 70.3 Wrist 2-3nd Digit 3.1 14.0 45 Wrist 3.1 79.3 Wrist 2-3nd Digit 3.1 14.0 45 Right Median Anti Sensory (2-3nd Digit) Wrist 2.9 59.8 Wrist 2-3nd Digit 2.9 14.0 48 Wrist 3.0 82.4 Wrist 2-3nd Digit 2.9 14.0 48 Left Radial Anti Sensory (Base 1st Digit) Wrist 2.1 19.1 Wrist Base 1st Digit 2.1 0.0 Right Radial Anti Sensory (Base 1st Digit) Wrist 2.1 39.0 Wrist Base 1st Digit 2.1 0.0 Left Ulnar Anti Sensory (5th Digit) Wrist 2.3 95.2 Wrist 5th Digit 2.3 14.0 61 Right Ulnar Anti Sensory (5th Digit) Wrist 2.4 55.5 Wrist 5th Digit 2.4 14.0 58 Motor Summary Table Stim Site NR Onset (ms) O-P Amp (mV) Site1 Site2 Delta-0 (ms) Dist (cm) Andrade (m/s) Left Median Motor (Abd Poll Brev) Wrist 3.4 5.5 Elbow Wrist 4.3 26.0 60 Elbow 7.7 5.0 Right Median Motor (Abd Poll Brev) Wrist 3.1 5.0 Elbow Wrist 4.3 26.0 60 Elbow 7.4 3.8 Left Ulnar Motor (Abd Dig Minimi) Wrist 2.5 9.7 A Elbow Wrist 4.8 28.0 58 A Elbow 7.3 8.6 Right Ulnar Motor (Abd Dig Minimi) Wrist 2.6 8.7 A Elbow Wrist 4.6 26.0 57 A Elbow 7.2 7.2 F Wave Studies NR F-Lat (ms) L-R F-Lat (ms) Left Median (Mrkrs) (Abd Poll Brev) 26.23 1.21 Right Median (Mrkrs) (Abd Poll Brev) 27.44 1.21 Left Ulnar (Mrkrs) (Abd Dig Min) 27.58 0.94 Right Ulnar (Mrkrs) (Abd Dig Min) 26.64 0.94 EMG Side Muscle Nerve Root Ins Act Fibs Amp Dur Recrt Comment Right 1stDorInt Ulnar C8-T1 Nml Nml Nml Nml Nml Right Ext Indicis Radial (Post Int) C7-8 Nml Nml Nml Nml Nml Right Ext Digitorum Radial (Post Int) C7-8 Nml Nml Nml Nml Nml Right BrachioRad Radial C5-6 Nml Nml Nml Nml Nml Right PronatorTeres Median C6-7 Nml Nml Nml Nml Nml Right Abd Poll Brev Median C8-T1 Nml Nml Nml Nml Nml Left 1stDorInt Ulnar C8-T1 Nml Nml Nml Nml Nml Left Ext Indicis Radial (Post Int) C7-8 Nml Nml Nml Nml Nml Left Ext Digitorum Radial (Post Int) C7-8 Nml Nml Nml Nml Nml Left BrachioRad Radial C5-6 Nml Nml Nml Nml Nml Left PronatorTeres Median C6-7 Nml Nml Nml Nml Nml Left Abd Poll Brev Median C8-T1 Nml Nml Nml Nml Nml Right Biceps Musculocut C5-6 Nml Nml Nml Nml Nml Right Triceps Radial C6-7-8 Nml Nml Nml Nml Nml Left Biceps Musculocut C5-6 Nml Nml Nml Nml Nml Left Triceps Radial C6-7-8 Nml Nml Nml Nml Nml MTDD
== END 2021-04-28 09:28 | disposition home or self-care (01) ==
PROVIDERS: PCP Family Medicine; Visit Provider Nurse Practitioner Family
DX: M79.632 Pain in left forearm (principal); R20.0 Anesthesia of skin
CPT/HCPCS: 95886; 95911

== ENCOUNTER 2022-03-28 14:07 | Emergency (ER) | payer OTHER, SELFPAY ==
--- NOTE | ~2022-03-28 | XR_ITS ---
EXAMINATION: XR chest 1V portable Exam Date/Time: 03/28/2022 14:50 CDT HISTORY: chest pain/positive covid Comparison: 12/21/2020. RESULT: Lines, tubes, and devices: None. Lungs and pleura: Ill-defined bilateral lower lung groundglass opacities. Cardiomediastinal silhouette: Stable cardiomediastinal silhouette. Other: No acute osseous or upper abdominal finding. IMPRESSION: Pulmonary findings likely represent atypical/viral pneumonia. Reviewed, dictated and finalized at location K.
[2022-03-28 14:08] VITALS: BP 110/58; RESP 18; TEMP 36.6; O2SAT 96
--- NOTE | 2022-03-28 14:11 | ECG_ITS ---
Measurements Intervals [place] Rate: 79 P: 44 NV: 149 QRS: 4 QRSD: 88 T: 52 QT: 379 QTc: 435 Interpretive Statements SINUS RHYTHM LOW-VOLTAGE QRS IN PRECORDIAL LEADS BORDERLINE ECG COMPARED TO ECG 12/21/2020 09:09:08 LOW-VOLTAGE QRS IN PRECORDIAL LEADS APPRECIATED Electronically Signed On 03-28-2022 15:01:26 CDT by Hemant Julien M.D.
[2022-03-28 14:35] LABS: Basophils Percent Auto 0.6 % (0.2-1.2); Eosinophils Percent Auto 1.3 % (0-4.4); Hematocrit 39.6 % (37.0-47.0); Hemoglobin 13.3 g/dL (12.0-15.0); Immature Granulocyte Absolute 0.01 K/mm3 (0.00-0.031); Immature Granulocyte Percent A 0.3 % (0-0.5); Lymphocytes Absolute Auto 1.18 K/mm3 (0.9-3.2); Lymphocytes Percent Auto 38.1 % (18.3-44.2); Mean Corpuscular HGB Conc 33.6 g/dl (32-36); Mean Corpuscular Hemoglobin 29.8 pg (26-34); Mean Corpuscular Volume 88.8 fl (80-100); Mean Platelet Volume 8.6 fl (7.4-10.4); Monocytes Absolute Auto 0.2 K/mm3 (0.1-0.6); Monocytes Percent Auto 6.5 % (2.6-8.5); Neutrophils Absolute Auto 1.7 K/mm3 (1.3-6.7); Neutrophils Percent Auto 53.2 % (45.5-73.1); Platelet Count Result 220 k/mm3 (150-375); Red Blood Count 4.46 M/mm3 (4.2-5.4); Red Cell Distribution Width 13.6 % (11.5-14.5); White Blood Count 3.1 K/mm3 (4.5-10.0)
[2022-03-28 14:43] LABS: Alanine Aminotransferase 27 U/L (6-35); Albumin Level 4.6 g/dL (3.5-5.1); Alkaline Phosphatase 91 U/L (38-126); Anion Gap 6 mmol/L (8-16); Aspartate Amino Transferase 38 U/L (14-36); Bilirubin,Total 0.7 mg/dL (0.2-1.3); Blood Urea Nitrogen 9 mg/dL (7-17); Calcium 8.7 mg/dL (8.4-10.2); Carbon Dioxide 30 mmol/L (22-30); Chloride 100 mmol/L (98-107); Estimated CRCL calculation 63 ml/min; Estimated Glomerular Filt Rate > 60; Glucose 155 mg/dL (65-110); Lipase 71 U/L (23-300); Potassium 3.4 mmol/L (3.4-5.0); Sodium 136 mmol/L (137-145)
[2022-03-28 14:50] LABS: Prothrombin Time 12.3 Seconds (11.1-14.7)
[2022-03-28 14:51] LABS: Partial Thromboplastin Time 27.3 SECONDS (22.3-36.8)
[2022-03-28 14:54] LABS: Troponin I < 0.012 ng/mL (0.000-0.034)
--- NOTE | 2022-03-28 15:16 | ED.SOB ---
HPI - SOB/Dyspnea General Chief Complaint: Shortness of Breath/Dyspnea Stated Complaint: covid +, CP Time Seen by Provider: 03/28/22 14:36 History of Present Illness HPI Narrative: 61-year-old female who since afternoon started noticing some congestion, and then started developing a cough, she states that she is also nauseous and has no appetite, though she has been making sure to keep hydrated. She took a home test that was positive for COVID. Does endorse some chest pain with cough, and some mild shortness of breath especially when she is up and walking. Has been taking some Tessalon Perles at home with improvement. Related Data Home Medications Medication Instructions Recorded Confirmed aspirin 81 mg tablet 160 mg PO DAILY 12/21/20 01/07/22 Allergies Allergy/AdvReac Type Severity Reaction Status Date / Time iodine Allergy Mild Other Verified 01/05/22 15:12 etodolac Allergy Unknown Unknown Verified 01/05/22 15:12 ibuprofen Allergy Unknown Palpitation Verified 01/05/22 15:12 s poison janet extract Allergy Unknown Unknown Verified 01/05/22 15:12 prednisone Allergy Unknown Unknown Verified 01/05/22 15:12 tramadol Allergy Unknown Unknown Verified 01/05/22 15:12 topiramate AdvReac Unknown Elevated Verified 01/05/22 15:12 glucose Review of Systems Review of Systems: CONST: Malaise HEENT: Congestion C/V: Chest comfort with cough RESP: Cough GI: Nausea : No dysuria. M/S: No joint pain. SKIN: No rash. NEURO: [No headache or focal numbness or weakness] PSYCH: [No depression] [facility] Past Medical History Medical History Acute cerebral infarction Field's palsy BMI 28.0-28.9,adult BMI 29.0-29.9,adult BMI 29.0-29.9,adult BMI 30.0-30.9,adult Hyperlipidemia Hypothyroidism (acquired) Otitis media Uncontrolled type 2 diabetes mellitus with hyperglycemia Surgical History Surgical History H/O left knee surgery History of tonsillectomy S/P foot surgery, left Family History Family History Mother Diabetes mellitus Cerebrovascular accident Family history of pancreatic cancer Family history of thyroid disease Father Hypertension Family history of elevated blood lipids Diabetes mellitus Aphasia Sibling Diabetes mellitus Social History Social History Social History: The patient works at a [employer]. The patient lives with her and she has 3 sons. The patient is a lifelong nonsmoker. She does not use any marijuana, alcohol or illicit drugs. Patient desires to be a full code. Her is a durable power electrical troubleshooter for healthcare. 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 Gender identity (if verbalized by the patient): Female Spiritual care concerns: No Exam Narrative: EXAMINATION OF ORGAN SYSTEMS/BODY AREAS: Constitutional: Vital signs per nursing GENERAL:[No acute distress, non-toxic appearing.] HEAD: Normal with no signs of head trauma. EYES: EOMI, conjunctiva normal ENT: Hearing grossly intact LUNGS: Nonlabored breathing. HEART: [Regular rate and rhythm] ABD: [Soft], [nontender to palpation] EXT: Normal range of motion SKIN: [No rashes or lesions.] NEURO: [Alert and oriented x 3. No gross focal sensory or strength deficits.] PSYCH: Normal affect Course Vital Signs Vital signs: Vital Signs Temperature 97.8 F 03/28/22 14:08 Respiratory Rate 18 03/28/22 14:08 Blood Pressure 110/58 L 03/28/22 14:08 Pulse Oximetry 96 03/28/22 14:08 Oxygen Delivery Room Air 03/28/22 14:08 Temperature 97.8 F 03/28/22 14:08 Respiratory Rate 18 03/28/22 14:08 Blood Pressure 110/58 L 03/28
[2022-03-28 16:09] LABS: SARS-CoV-2 RNA PCR Positive
== END 2022-03-28 15:57 | disposition home or self-care (01) ==
PROVIDERS: Emergency Medicine; Emergency Provider Emergency Medicine; PCP Family Medicine
DX: U07.1 COVID-19 (principal); E78.5 Hyperlipidemia, unspecified; E03.9 Hypothyroidism, unspecified; E11.9 Type 2 diabetes mellitus without complications; Z79.82 Long term (current) use of aspirin; Z79.84 Long term (current) use of oral hypoglycemic drugs; R94.31 Abnormal electrocardiogram [ECG] [EKG]; R91.8 Other nonspecific abnormal finding of lung field
CPT/HCPCS: 36415; 71045; 80053; 83690; 84484; 85025; 85610; 85730; 93005; 99284; C9803; U0003; U0005

== ENCOUNTER 2022-05-05 10:43 | Outpatient (CLI) | payer OTHER, SELFPAY ==
--- NOTE | ~2022-05-05 | XR_ITS ---
EXAMINATION: XR chest 2V 05/05/2022 11:30 INDICATION: Covid 19 PROCEDURE: 2 view chest COMPARISON: Comparison to multiple prior studies sequentially, with oldest reviewed study dated 03/20. FINDINGS: The lungs are clear. The cardiomediastinal silhouette is within normal limits. There are no pleural effusions. There is no pneumothorax suspected. IMPRESSION: 1: NO ACUTE CARDIOPULMONARY DISEASE. Reviewed, dictated and finalized at location A.
== END 2022-05-05 10:44 ==
PROVIDERS: PCP Nurse Practitioner Family; Visit Provider Nurse Practitioner Family
DX: U07.1 COVID-19 (principal)
CPT/HCPCS: 71046

== ENCOUNTER 2022-07-25 09:28 | Emergency (ER) | payer OTHER, SELFPAY ==
[2022-07-25] VITALS (17 sets, daily range): BP systolic 144–171; BP diastolic 76–86; PULSE 65–88; RESP 14–23; TEMP 36.6; O2SAT 95–99
--- NOTE | ~2022-07-25 | XR_ITS ---
EXAMINATION: XR chest 2V DATE: 07/25/2022 10:14 INDICATION: Left facial numbness. Headache. TECHNIQUE: Frontal and lateral views of the chest were obtained. COMPARISON: Chest 2 views 05/05/2022 FINDINGS: Calcified lung nodules are consistent with old granulomatous disease. No pleural effusion o r pneumothorax. The heart size is normal. IMPRESSION: 1. No acute cardiopulmonary disease. Reviewed, dictated and finalized at location B.
--- NOTE | ~2022-07-25 | CT_ITS ---
EXAMINATION: CT brain wo con INDICATION: Left-sided facial numbness COMPARISON: 12/02/2020 TECHNIQUE: Standard unenhanced head CT. The dose-length product (DLP) was 605.33 mGy-cm. The mA was a djusted according to patient size. Iterative reconstruction technique was employed. FINDINGS: There is no acute intraparenchymal hemorrhage. No evidence of mass lesion. No evidence of a cute infarction. There is a old infarct of the left basal ganglia and anterior limb of the left inter nal capsule. There is mild periventricular and subcortical hypodensity probably related to small vess el ischemic disease. There is mild prominence of the sulci and ventricles related to cerebral atrophy . Intracranial calcified cerebral atherosclerosis is noted. There are no extra-axial collections. The re is no mass effect or midline shift. The orbits and soft tissues are unremarkable. There is mild mu cosal thickening of the paranasal sinuses. IMPRESSION: 1. Area of prior infarction without acute intracranial abnormality. 2. Age related findings. As per stroke protocol, I called these results to the Emergency Department, and discussed with Dr. Reji Erickson MD at 0950 hours on 07/25/2022. Reviewed, dictated and finalized at location A. IMPRESSION: 1. Area of prior infarction without acute intracranial abnormality. 2. Age related findings. As per stroke protocol, I called these results to the Emergency Department, and discussed with Dr. Anika Erickson MD at 0950 hours on 07/25/2022.
--- NOTE | 2022-07-25 09:39 | ECG_ITS ---
Measurements Intervals [place] Rate: 72 P: 46 [place]: 155 QRS: -2 QRSD: 98 T: 20 QT: 402 QTc: 442 Interpretive Statements SINUS RHYTHM WITHIN NORMAL LIMITS COMPARED TO ECG 03/28/2022 14:16:06 NO SIGNIFICANT CHANGES Electronically Signed On 07-25-2022 13:55:32 CDT by Abdoulaye Vail M.D.
--- NOTE | 2022-07-25 09:39 | ED.NEUROSD ---
HPI - Neuro Symptoms/Deficit General Chief Complaint: Suspected CVA Stated Complaint: left sided facial numbness, H/A Time Seen by Provider: 07/25/22 09:39 Source: patient Mode of arrival: ambulatory Limitations: no limitations History of Present Illness HPI Narrative: Patient is a 62-year-old female with a history of type 2 diabetes, hypothyroidism, hypertension, hyperlipidemia, presenting to the emergency department for evaluation the headache, left-sided facial tingling. Patient reports acute onset approximately 90 minutes prior to arrival. Patient states she did take an Aleve for her headache which did not improve her symptoms. Patient reports history of CVA in the past. She denies any significant deficits from that. She denies dizziness. Denies nausea, vomiting. Denies chest pain. Patient without lower extremity weakness or numbness. She has been ambulatory. Patient has been compliant with her daily pain. She denies other anticoagulation. Related Data Home Medications Medication Instructions Recorded Confirmed aspirin 81 mg tablet 160 mg PO DAILY 12/21/20 05/02/22 Allergies Allergy/AdvReac Type Severity Reaction Status Date / Time iodine Allergy Mild Other Verified 04/12/22 10:34 etodolac Allergy Unknown Unknown Verified 04/12/22 10:34 ibuprofen Allergy Unknown Palpitation Verified 04/12/22 10:34 s poison janet extract Allergy Unknown Unknown Verified 04/12/22 10:34 prednisone Allergy Unknown Unknown Verified 04/12/22 10:34 tramadol Allergy Unknown Unknown Verified 04/12/22 10:34 topiramate AdvReac Unknown Elevated Verified 04/12/22 10:34 glucose Review of Systems Review of Systems: CONSTITUTIONAL: Denies fever, chills, or sweats. EYES: Denies visual changes, redness, or discharge. ENT: Denies rhinorrhea, congestion, sore throat, or otalgia. CARDIOVASCULAR: Denies chest pain, palpitations, or edema. RESPIRATORY: Denies cough or dyspnea. GASTROINTESTINAL: Denies abdominal pain, nausea, vomiting, or diarrhea. GENITOURINARY: Denies dysuria or hematuria. SKIN: Denies rash or itching. MUSCULOSKELETAL: Denies back pain, joint pain, or myalgia. NEUROLOGIC: Reports headache, left-sided facial numbness PMFSH Past Medical History Medical History Acute cerebral infarction Field's palsy BMI 28.0-28.9,adult BMI 29.0-29.9,adult BMI 29.0-29.9,adult BMI 30.0-30.9,adult Hyperlipidemia Hypothyroidism (acquired) Otitis media Uncontrolled type 2 diabetes mellitus with hyperglycemia Surgical History Surgical History H/O left knee surgery History of tonsillectomy S/P foot surgery, left Family History Family History Mother Diabetes mellitus Cerebrovascular accident Family history of pancreatic cancer Family history of thyroid disease Father Hypertension Family history of elevated blood lipids Diabetes mellitus Aphasia Sibling Diabetes mellitus Social History Social History Social History: The patient works at a [employer]. The patient lives with her and she has 3 sons. The patient is a lifelong nonsmoker. She does not use any marijuana, alcohol or illicit drugs. Patient desires to be a full code. Her is a durable power fuel cell assembler for healthcare. 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 Gender identity (if verbalized by the patient): Female Spiritual care concerns: No Exam Narrative: GENERAL: Awake, alert, conversant HEAD: Normocephalic, atraumatic. EYES: PERRLA and EOMI. ENT: Nares clear, no rhinorrhea or epistaxis. Mucous membranes moist. NECK: Supple.
[2022-07-25 09:50] LABS: Glucose Point of Care 225 mg/dl (65-105)
[2022-07-25 10:05] LABS: Basophils Absolute Auto 0.1 K/mm3 (0.0-0.1); Eosinophils Absolute Auto 0.2 K/mm3 (0-0.3); Eosinophils Percent Auto 3.6 % (0-4.4); Hemoglobin 13.2 g/dL (12.0-15.0); Immature Granulocyte Absolute 0.03 K/mm3 (0.00-0.031); Immature Granulocyte Percent A 0.5 % (0-0.5); Lymphocytes Absolute Auto 1.75 K/mm3 (0.9-3.2); Lymphocytes Percent Auto 30.3 % (18.3-44.2); Mean Corpuscular HGB Conc 34.7 g/dl (32-36); Mean Corpuscular Hemoglobin 30.6 pg (26-34); Mean Platelet Volume 8.4 fl (7.4-10.4); Monocytes Absolute Auto 0.3 K/mm3 (0.1-0.6); Monocytes Percent Auto 4.7 % (2.6-8.5); Neutrophils Absolute Auto 3.5 K/mm3 (1.3-6.7); Neutrophils Percent Auto 59.9 % (45.5-73.1); Platelet Count Result 234 k/mm3 (150-375); Red Blood Count 4.32 M/mm3 (4.2-5.4); Red Cell Distribution Width 12.9 % (11.5-14.5); White Blood Count 5.8 K/mm3 (4.5-10.0)
[2022-07-25 10:14] LABS: Anion Gap 10 mmol/L (8-16); Blood Urea Nitrogen 10 mg/dL (7-17); Carbon Dioxide 28 mmol/L (22-30); Chloride 99 mmol/L (98-107); Estimated Glomerular Filt Rate > 60; Glucose 220 mg/dL (65-110); Potassium 3.9 mmol/L (3.4-5.0); Sodium 137 mmol/L (137-145)
[2022-07-25 10:15] LABS: Prothrombin Time 12.5 Seconds (11.1-14.7)
[2022-07-25 10:16] LABS: Partial Thromboplastin Time 28.6 SECONDS (22.3-36.8)
[2022-07-25] MEDS: SODIUM CHLORIDE 0.9% IV 1,000 ML 999 ML IV CONT (10:22)
[2022-07-25 10:26] LABS: Troponin I < 0.012 ng/mL (0.000-0.034)
[2022-07-25 10:52] LABS: Add Urine Microscopic? YES; Appearance Urine Clear (Clear); Bacteria Urine Trace /hpf; Bilirubin Urine Negative (Negative); Blood Urine Negative (Negative); Color Urine Straw (Yellow); Glucose Urine UA 2+ mg/dL (Negative); Ketones Urine Negative (Negative); Leukocyte Esterase Ur Trace LEU/UL (Negative); Mucus Urine Rare /lpf; Nitrate Urine Negative (Negative); Protein Urine Negative (Negative); RBC Urine 0-2 /hpf (0-2); Squamous Epithelial Cell Urine Rare /hpf (Few); Urobilinogen Urine Negative mg/dL (<2.0); WBC Urine 0-3 /hpf
[2022-07-25 10:55] LABS: Specific Grav Ur 1.004 (1.001-1.035)
[2022-07-25 12:42] LABS: Free T4 Free Thyroxine Reflex 1.39 ng/dL (0.78-2.19)
[2022-07-25 12:54] LABS: SARS-CoV-2 RNA PCR Negative
[2022-07-25 13:23] LABS: Total Triiodothyronine (T3) 1.26 NG/ML (0.97-1.69)
== END 2022-07-25 13:55 | disposition home or self-care (01) ==
PROVIDERS: Emergency Provider Emergency Medicine
DX: G43.109 Migraine with aura, not intractable, without status migrainosus (principal); Z20.822 Contact with and (suspected) exposure to COVID-19; E11.9 Type 2 diabetes mellitus without complications; E03.9 Hypothyroidism, unspecified; E78.5 Hyperlipidemia, unspecified; I10 Essential (primary) hypertension; Z86.73 Personal history of transient ischemic attack (TIA), and cerebral infarction without residual deficits; Z79.82 Long term (current) use of aspirin; Z77.22 Contact with and (suspected) exposure to environmental tobacco smoke (acute) (chronic); Z79.84 Long term (current) use of oral hypoglycemic drugs
CPT/HCPCS: 36415; 70450; 71046; 80048; 81001; 82948; 84439; 84443; 84480; 84484; 85025; 85610; 85730; 93005; 96361; 96365; 96375; 99284; C9803; J0131; J1100; J7030; U0003; U0005

== ENCOUNTER 2022-08-29 08:34 | Outpatient (CLI) | payer OTHER, SELFPAY ==
--- NOTE | 2022-08-29 08:56 | ECHO_ITS ---
Patient Info Name: Angella Ward Age: 62 years : 1960 Gender: Female Ht: 61 in Wt: 158 lbs BSA: 1.78 m2 HR: 63 bpm BP: 141 / 84 mmHg Heart Rhythm: Sinus Rhythm Technical Quality: Good Exam Date: 08/29/2022 9:24 AM Exam Location: [facility] Pulmonary Patient Status: Outpatient Admit Date: 08/29/2022 Staff Ordering Physician: Liliane Luque NP Structural Ironworker: Rosario Nix RDCS Attending Provider: Liliane Luque NP Referring Physician: Ene MCNAMARA; Exam Type: CA echo doppler color flow Study Info Indications R01.1 - Cardiac murmur, unspecified Complete two-dimensional, color flow and Doppler transthoracic echocardiogram is performed. Summary 1. Complete two-dimensional, color flow and Doppler transthoracic echocardiogram is performed. 2. Left ventricular chamber dimension is normal. 3. Left ventricular systolic function is normal, estimated at 55-60%. 4. There is mild aortic valve sclerosis. 5. There is trace mitral valve regurgitation. Left Ventricle Left ventricular chamber dimension is normal. Left ventricular systolic function is normal, estimated at 55-60%. The left ventricular diastolic function is normal. Left Atria Left atrial chamber dimension is normal. Right Atria Right atrial chamber dimension is normal. Aortic Valve The aortic valve is trileaflet. There is mild aortic valve sclerosis. Pulmonic Valve The pulmonic valve is normal. Mitral Valve The mitral valve has normal leaflets. There is trace mitral valve regurgitation. Tricuspid Valve The tricuspid valve leaflets are normal. Pericardium/Pleural The pericardium appears normal. Aorta The aortic root size at the sinus of Valsalva is normal. Left Ventricular Outflow Tract Name Value Normal LVOT 2D LVOT Diameter 2.0 cm LVOT Doppler LVOT Peak Gradient 5 mmHg LVOT Mean Gradient 3 mmHg LVOT VTI 31 cm LVOT VTI/AV VTI Ratio 0.9 LVOT Stroke Volume 96 ml LVOT CO 5.8 l/min LVOT CI 3.2 l/min/m2 Pulmonic Valve Name Value Normal RVOT Doppler RVOT Peak Gradient 1 mmHg PV Doppler PV Peak Gradient 3 mmHg Mitral Valve Name Value Normal MV Doppler MV Decel Shasta 408 cm/s2 MV PHT 48 ms MV Area
--- NOTE | 2022-09-02 12:43 | WPDHOLTEREM ---
Holter/Event Monitor Holter/Event Monitor Date of procedure: 08/29/22 Holter/Event Procedure: 48 Hr Holter Monitor Diagnosis: Palpitations Indications: Palpitations Image/Tracing Quality: Good Findin hours and 59 minutes recorded and analyzed. Underlying sinus rhythm heart rate variability between 42 and 122 beats per minute an average heart rate of 73 beats per minute. No significant pauses or heart block. Longest RR interval was 1.5 seconds. No ventricular ectopy. Low frequency supraventricular ectopy totaling 53 beats. This consisted of 2 brief atrial runs. There were both atrial triplets and the fastest of which was at a rate of 169 beats per minute. There were 2 atrial couplets and 41 isolated PACs No atrial fibrillation Three patient triggered events of ?heaviness ?all correlated sinus rhythm sinus bradycardia but without arrhythmia Conclusion: Unremarkable 48 hour Holter monitor showing low frequency supraventricular ectopy. No complex arrhythmia or heart block or significant pauses. No atrial fibrillation Symptom events of heaviness correlate to sinus rhythm or sinus bradycardia
== END 2022-08-29 08:35 | disposition home or self-care (01) ==
PROVIDERS: PCP Family Medicine; Visit Provider Nurse Practitioner Family
DX: R01.1 Cardiac murmur, unspecified (principal); I63.9 Cerebral infarction, unspecified
CPT/HCPCS: 93225; 93226; 93306

== ENCOUNTER 2023-06-13 10:47 | Observation (INO) | payer OTHER, SELFPAY ==
[2023-06-13] VITALS (9 sets, daily range): BP systolic 116–152; BP diastolic 61–76; PULSE 63–84; RESP 12–20; TEMP 35.8–36.2; O2SAT 10–99
--- NOTE | ~2023-06-13 | CT_ITS ---
EXAMINATION: CT brain wo con DATE: 06/13/2023 18:38 INDICATION: weakness . TECHNIQUE: Computed tomography (CT) of the head was performed without intravenous contrast. The mA wa s adjusted according to patient size. Iterative reconstruction technique was employed. The dose-lengt h product was 605.33 mGy-cm. COMPARISON: 07/25/2022. FINDINGS: No acute intracranial hemorrhage or extra-axial fluid collection. No hydrocephalus, mass, or herniation. No acute ischemic infarct. Unremarkable dural venous sinus attenuation. No acute osseous abnormality. The aerated spaces are clear. Mild atrophy and chronic white matter change. Atherosclerotic intracranial calcification. Old left ba marek ganglia lacunar infarct. IMPRESSION: No acute intracranial process. Reviewed, dictated and finalized at location K.
--- NOTE | ~2023-06-13 | MR_ITS ---
EXAMINATION: MR brain/brain stem wo/w con DATE: 06/14/2023 08:49 INDICATION: Gait instability. Neurological changes. Leg weakness. TECHNIQUE: Magnetic resonance imaging (MRI) of the brain and brainstem was performed without and with 13 mL MultiHance intravenous contrast. COMPARISON: Head CT 06/13/2023, brain MRI 02/13/2019 FINDINGS: There are scattered areas of nonspecific increased T2-weighted signal intensity in the cere bral white matter and maryjane, which is within normal limits for the patient's age. There is chronic enc ephalomalacia involving the left basal ganglia and anterior limb left internal capsule with old blood products. There is no acute ischemic infarct or abnormal mass lesion. There is mild ex vacuo dilatat ion of body of left lateral ventricle. The orbits are normal. There is mild mucosal thickening in the ethmoid sinuses. The mastoid air cells are normal. IMPRESSION: 1. Chronic encephalomalacia in the left basal ganglia and anterior limb left internal capsule with ol d blood products. Reviewed, dictated and finalized at location A. IMPRESSION: 1. Chronic encephalomalacia in the left basal ganglia and anterior limb left in ternal capsule with old blood products.
--- NOTE | ~2023-06-13 | CT_ITS ---
EXAMINATION: CTA brain carotid DATE: 06/13/2023 19:34 INDICATION: leg weakness, concern CVA TECHNIQUE: Computed tomographic angiography (CTA) of the head and neck was performed withoutwith 100 mL. Moderate atrophy and chronic white matter change. Atherosclerotic intracranial calcification. Joselo ateral lens replacements. The dose-length product was 993.54 mGy-cm. Maximum intensity projection and volume rendered 3D-reconstructions were created by the technologist on a separate workstation. COMPARISON: 02/14/2019; CT brain 06/13/2023. FINDINGS: CTA HEAD: No large vessel occlusion, aneurysm, high flow vascular malformation, nidus or extravasation. Short s egment mild stenosis of the right P1 segment. Mild calcification of the bilateral carotid siphons wit hout significant stenosis. Slightly hypoplastic left A1 segment. Prominent left posterior communicati ng artery. CTA NECK: Aortic arch and proximal great vessels: Normal arch anatomy. Right common carotid, carotid bifurcation, and internal carotid artery: Mild calcified plaque.There i s 0% stenosis of the proximal right internal carotid artery relative to normal distal artery lumen di ameter (NASCET criteria). Left common carotid, carotid bifurcation, and internal carotid artery: Minimal calcified plaque.There is 0% stenosis of the proximal left internal carotid artery relative to normal distal artery lumen d iameter (NASCET criteria). Vertebral arteries: No significant plaque or stenosis. Vertebral arteries co-dominant. Other findings: 1.9 cm right thyroid nodule, previously biopsied. Stable C3 lesion, likely hemangioma . IMPRESSION: No large vessel occlusion. No significant carotid or vertebral artery stenosis. Reviewed, dictated and finalized at location K.
[2023-06-13 12:54] LABS: Basophils Percent Auto 0.4 % (0.2-1.2); Eosinophils Absolute Auto 0.3 K/mm3 (0-0.3); Eosinophils Percent Auto 2.2 % (0-4.4); Hematocrit 39.9 % (37.0-47.0); Hemoglobin 13.6 g/dL (12.0-15.0); Immature Granulocyte Absolute 0.14 K/mm3 (0.00-0.031); Immature Granulocyte Percent A 1.3 % (0-0.5); Lymphocytes Absolute Auto 2.38 K/mm3 (0.9-3.2); Lymphocytes Percent Auto 21.3 % (18.3-44.2); Mean Corpuscular HGB Conc 34.1 g/dl (32-36); Mean Corpuscular Hemoglobin 30.8 pg (26-34); Mean Corpuscular Volume 90.5 fl (80-100); Mean Platelet Volume 8.5 fl (7.4-10.4); Monocytes Absolute Auto 0.5 K/mm3 (0.1-0.6); Monocytes Percent Auto 4.2 % (2.6-8.5); Neutrophils Absolute Auto 7.9 K/mm3 (1.3-6.7); Neutrophils Percent Auto 70.6 % (45.5-73.1); Platelet Count Result 306 k/mm3 (150-375); Red Blood Count 4.41 M/mm3 (4.2-5.4); Red Cell Distribution Width 13.5 % (11.5-14.5); White Blood Count 11.2 K/mm3 (4.5-10.0)
[2023-06-13 13:04] LABS: Alanine Aminotransferase 19 U/L (6-35); Albumin Level 4.3 g/dL (3.5-5.1); Alkaline Phosphatase 78 U/L (38-126); Anion Gap 5 mmol/L (8-16); Aspartate Amino Transferase 18 U/L (14-36); Bilirubin,Total 0.8 mg/dL (0.2-1.3); Blood Urea Nitrogen 17 mg/dL (7-17); Calcium 9.3 mg/dL (8.4-10.2); Carbon Dioxide 33 mmol/L (22-30); Chloride 97 mmol/L (98-107); Estimated CRCL calculation 75 ml/min; Estimated Glomerular Filt Rate > 60; Glucose 197 mg/dL (65-110); Potassium 4.3 mmol/L (3.4-5.0); Sodium 135 mmol/L (137-145)
[2023-06-13 14:29] LABS: Appearance Urine Clear (Clear); Bacteria Urine None Seen /hpf; Bilirubin Urine Negative (Negative); Blood Urine Negative (Negative); Color Urine Yellow (Yellow); Glucose Urine UA 3+ mg/dL (Negative); Ketones Urine Negative (Negative); Leukocyte Esterase Ur Trace LEU/UL (Negative); Nitrate Urine Negative (Negative); Non Pathogenic Casts 0-2; Protein Urine Negative (Negative); RBC Urine 0-2 /hpf (0-2); Squamous Epithelial Cell Urine None seen /hpf (Few); Urobilinogen Urine 0.2 mg/dL (<2.0); WBC Urine 0-5 /hpf
[2023-06-13 14:36] LABS: Add Urine Microscopic? YES
--- NOTE | 2023-06-13 18:48 | ED.GENADULT ---
HPI - General Adult General Chief complaint: Recheck/Abnormal Lab/Rx Stated complaint: fall with balance problems since yesterday Time Seen by Provider: 06/13/23 16:10 History of Present Illness HPI narrative: 62-year-old female presented the emergency department for evaluation of increased gait instability. Patient states that yesterday when she was walking she felt that she was walking on stilts . Patient reports that her legs did give out yesterday and she fell twice. Patient states she did strike her head but had no loss of consciousness. Patient is on Plavix. Patient reports he does have a history of a TIA approximately 5 years ago Related Data Home Medications Medication Instructions Recorded Confirmed aspirin 81 mg tablet 160 mg PO DAILY 12/21/20 06/13/23 Allergies Allergy/AdvReac Type Severity Reaction Status Date / Time iodine Allergy Mild Other Verified 06/13/23 16:07 etodolac Allergy Unknown Unknown Verified 06/13/23 16:07 ibuprofen Allergy Unknown Palpitation Verified 06/13/23 16:07 s poison janet extract Allergy Unknown Unknown Verified 06/13/23 16:07 prednisone Allergy Unknown Unknown Verified 06/13/23 16:07 tramadol Allergy Unknown Unknown Verified 06/13/23 16:07 topiramate AdvReac Unknown Elevated Verified 06/13/23 16:07 glucose Review of Systems Review of Systems: All systems reviewed & are unremarkable except as noted in HPI and below PMFSH Past Medical History Medical History Acute cerebral infarction Field's palsy BMI 26.0-26.9,adult BMI 28.0-28.9,adult BMI 29.0-29.9,adult BMI 29.0-29.9,adult BMI 30.0-30.9,adult Hyperlipidemia Hypothyroidism (acquired) Otitis media Uncontrolled type 2 diabetes mellitus with hyperglycemia Surgical History Surgical History H/O left knee surgery History of tonsillectomy S/P foot surgery, left Family History Family History Mother Diabetes mellitus Cerebrovascular accident Family history of pancreatic cancer Family history of thyroid disease Father Hypertension Family history of elevated blood lipids Diabetes mellitus Aphasia Parkinson's disease Sibling Diabetes mellitus TIA (transient ischemic attack) Social History Social History Social History: 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 The patient lives with her father and she has 3 sons. The patient is a lifelong nonsmoker. She does not use any marijuana, alcohol or illicit drugs. Patient desires to be a full code. 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 Gender identity (if verbalized by the patient): Female Spiritual care concerns: No Exam Narrative: APPEARANCE: Well appearing, no pain, no distress, well-nourished. HEAD: normocephalic, atraumatic. EYES: PERRLA/EOMI, conjunctivae clear. NOSE: Normal no drainage EARS:TMS clear with good light reflex. THROAT: Pharynx clear, no exudate. NECK: Supple. No adenopathy, no masses. RESPIRATORY: Airway patent, respirations nonlabored. Clear to auscultation bilaterally, no rales, rhonchi, wheezing. CARDIOVASCULAR: Regular rate and rhythm without murmurs rubs or gallops. ABDOMINAL: Soft, nontender, nondistended, normal bowel sounds MUSCULOSK
[2023-06-13 20:16] LABS: Glucose Point of Care 159 mg/dl (65-105)
[2023-06-13] MEDS: SODIUM CHLORIDE 0.9% IV 1,000 ML 999 ML IV CONT (20:56)
[2023-06-13 22:01] LABS: Glucose Point of Care 224 mg/dl (65-105)
[2023-06-13] MEDS: INSULIN ASPART (*BKC) 100 UNITS/ML SUB-Q (22:05)
--- NOTE | 2023-06-13 22:32 | ADMGEN ---
This patient, Angella Ward, was admitted to [address] [place] [address] Room 324-02. Patient/family oriented to hospital policies and general routines including ID bracelet, bed and alarms, visiting hours, pain management, procedures, bathroom and other care routines, personal items, smoking policy, room service/diet, and visiting hours. Information on how to activate the Rapid Response Team has been discussed. Patient/Family are encouraged to report perceived risks to care and to ask questions if they do not understand what they are told or what they should do.
[2023-06-14] VITALS (10 sets, daily range): BP systolic 98–121; BP diastolic 56–69; PULSE 56–89; RESP 12–16; TEMP 35.9–36.4; O2SAT 94–97
--- NOTE | 2023-06-14 01:43 | PC.NURSE ---
patient stated that she was taking trulicity at home, but hasn't taken it in 2-3 weeks, she also stated that when starting taking the trulicity she had no appetite and lost 20 pounds due to it, stated that she lost this weight approximately 5 months ago
[2023-06-14 07:25] LABS: Glucose Point of Care 140 mg/dl (65-105)
[2023-06-14] MEDS: LEVOTHYROXINE SODIUM 125 MCG TABLET PO (07:25)
[2023-06-14 07:32] LABS: Hematocrit 36.8 % (37.0-47.0); Hemoglobin 12.5 g/dL (12.0-15.0); Mean Corpuscular Hemoglobin 30.9 pg (26-34); Mean Corpuscular Volume 90.9 fl (80-100); Mean Platelet Volume 8.4 fl (7.4-10.4); Platelet Count Result 264 k/mm3 (150-375); Red Blood Count 4.05 M/mm3 (4.2-5.4); Red Cell Distribution Width 13.5 % (11.5-14.5); White Blood Count 8.2 K/mm3 (4.5-10.0)
[2023-06-14 07:44] LABS: Anion Gap 3 mmol/L (8-16); Blood Urea Nitrogen 13 mg/dL (7-17); Calcium 8.5 mg/dL (8.4-10.2); Carbon Dioxide 33 mmol/L (22-30); Chloride 100 mmol/L (98-107); Cholesterol 235 mg/dL (0-200); Estimated CRCL calculation 75 ml/min; Estimated Glomerular Filt Rate > 60; Glucose 152 mg/dL (65-110); HDL Direct 38 mg/dL; Potassium 4.3 mmol/L (3.4-5.0); Sodium 136 mmol/L (137-145); Triglycerides 193 mg/dL (<150)
[2023-06-14 07:55] LABS: LDL Cholesterol Direct 142 mg/dL
[2023-06-14 08:40] LABS: Hemoglobin A1C 7.2 % (<5.7)
[2023-06-14] MEDS: PANTOPRAZOLE 40 MG TABLET PO (09:43)
[2023-06-14] MEDS: ATORVASTATIN 40 MG TABLET 80 MG PO (09:43)
[2023-06-14] MEDS: metFORMIN HCL XR 500 MG TAB.SR.24H 2000 MG PO (09:43)
[2023-06-14] MEDS: lisinopriL 10 MG TABLET PO (09:44)
--- NOTE | 2023-06-14 10:27 | PM.IMHP ---
H&P: HPI History of Present Illness Date/Time: 06/14/23 10:27 Chief Complaint: Gait instability with fall, suspected stroke Narrative: This is a 62-year-old female patient with past history of hypertension hyperlipidemia prior stroke hypothyroidism and uncontrolled type 2 diabetes. Patient was admitted to the hospital for stroke workup related to gait instability you with a fall yesterday. Patient states she was walking on a sidewalk when suddenly out of no where she fell landing on her buttocks. She states that she felt like her legs were on stilts. Patient reports that she was feeling normal prior to this happening. Patient reports prior CVA with left-sided facial numbness that resolved without intervention after about 4 days. Patient denies any head trauma. Patient reports that she is compliant with her home medications except she no longer takes Trulicity and she ran out of her thyroid medicine about a week ago. Patient is prescribed aspirin and atorvastatin for secondary prevention. Patient denies any difficulty swallowing cough congestion fever difficulty breathing abdominal pain nausea vomiting constipation or diarrhea. Social history is benign. Review of Systems Review of Systems: All systems reviewed & are unremarkable except as noted in HPI and below PMFSH Past Medical History Medical History Acute cerebral infarction Field's palsy BMI 26.0-26.9,adult BMI 28.0-28.9,adult BMI 29.0-29.9,adult BMI 29.0-29.9,adult BMI 30.0-30.9,adult Hyperlipidemia Hypothyroidism (acquired) Otitis media Uncontrolled type 2 diabetes mellitus with hyperglycemia Surgical History Surgical History H/O left knee surgery History of tonsillectomy S/P foot surgery, left Family History Family History Mother Diabetes mellitus Cerebrovascular accident Family history of pancreatic cancer Family history of thyroid disease Father Hypertension Family history of elevated blood lipids Diabetes mellitus Aphasia Parkinson's disease Sibling Diabetes mellitus TIA (transient ischemic attack) Social History Social History Social History: The patient works at a [employer]. The patient lives with her father and she has 3 sons. The patient is a lifelong nonsmoker. She does not use any marijuana, alcohol or illicit drugs. Patient desires to be a full code. 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 Gender identity (if verbalized by the patient): Female Spiritual care concerns: No Meds Home Medications and Allergies Home Medications Medication Instructions Recorded Confirmed Type aspirin 81 mg tablet 160 mg PO DAILY 12/21/20 06/13/23 History cholecalciferol (vitamin D3) 1,250 50,000 unit PO WEEKLY #8 caps 08/02/21 06/13/23 Rx mcg (50,000 unit) capsule atorvastatin 80 mg tablet (Lipitor) 80 mg PO DAILY #90 tabs 01/05/22 06/13/23 Rx levothyroxine 125 mcg tablet 125 mcg PO DAILY #90 tabs 10/23/22 06/13/23 Rx lisinopril 10 mg tablet 10 mg PO DAILY #90 tabs 10/23/22 06/13/23 Rx metformin 500 mg tablet,extended 2,000 mg PO DAILY #360 tabs 10/23/22 06/13/23 Rx release 24 hr omeprazole 40 mg capsule,delayed 40 mg PO BID #180 caps 10/23/22
--- NOTE | 2023-06-14 10:48 | ECG_ITS ---
Measurements Intervals Clifford Rate: 56 P: 40 KS: 156 QRS: 0 QRSD: 91 T: 25 QT: 419 QTc: 407 Interpretive Statements SINUS BRADYCARDIA BORDERLINE ECG COMPARED TO ECG 07/25/2022 10:19:16 SINUS BRADYCARDIA NOW PRESENT Electronically Signed On 06-14-2023 12:46:35 CDT by Roberto Hammer D.O.
[2023-06-14 11:14] LABS: Glucose Point of Care 175 mg/dl (65-105)
--- NOTE | 2023-06-14 12:39 | WPDNEURCNPN ---
Assessment and Plan Assessment and plan (1) Gait instability: Code(s): R26.81 - Unsteadiness on feet Status: Acute (2) Diabetic neuropathy: Code(s): E11.40 - Type 2 diabetes mellitus with diabetic neuropathy, unspecified Status: Acute (3) CVA (cerebral vascular accident): Code(s): I63.9 - Cerebral infarction, unspecified Status: Acute Plan 1 Documented chronic encephalomalacia in the left basal ganglia and anterior limb of the left internal capsule with old blood products 2 possibility of the gait dysfunction superimposed because the underlying neuropathic process on the basis of Diabetes mellitus 3 considering a negative CTA, but positive MRI of the brain will be scheduled for the nerve conduction study as an outpatient,, will be continue antihypertensive medication, aspirin on daily basis and treatment for the diabetes mellitus Consult date: 06/14/23 HPI: Angella Ward is a 62 year old female Admitted to the hospital through the emergency room for the complaints of increasing gait instability reportedly when she was walking yesterday she felt as if she was walking on stilts, and also reported that her lower extremities gave out and she fell twice resulting in striking her head but not becoming unconscious she also gave the history of having had TIA in the past. She has been taking aspirin 81 mg daily, she is reportedly allergic to iodine and multiple medications as documented including tramadol topiramate, she does have a history of left knee surgery and left foot surgery, but she is not alcohol intake never smoker and her initial examination was with some drift of the left upper extremity, her vital signs were normal, CBC was normal, basic metabolic panel blood sugar of 197 and sodium 135, initial CTA of the head and neck was normal with no involvement of the vertebral artery Review of Systems Review of Systems: All systems reviewed & are unremarkable except as noted in HPI and below [facility] Past Medical History Medical History Acute cerebral infarction Field's palsy BMI 26.0-26.9,adult BMI 28.0-28.9,adult BMI 29.0-29.9,adult BMI 29.0-29.9,adult BMI 30.0-30.9,adult Hyperlipidemia Hypothyroidism (acquired) Otitis media Uncontrolled type 2 diabetes mellitus with hyperglycemia Surgical History Surgical History H/O left knee surgery History of tonsillectomy S/P foot surgery, left Family History Family History Mother Diabetes mellitus Cerebrovascular accident Family history of pancreatic cancer Family history of thyroid disease Father Hypertension Family history of elevated blood lipids Diabetes mellitus Aphasia Parkinson's disease Sibling Diabetes mellitus TIA (transient ischemic attack) Social History Social History Social History: The patient works at a [employer]. The patient lives with her father and she has 3 sons. The patient is a lifelong nonsmoker. She does not use any marijuana, alcohol or illicit drugs. Patient desires to be a full code. 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 Gender identity (if verbalized by the patient): Female Spiritual care concerns: No Meds
[2023-06-14 14:08] LABS: Free T4 Free Thyroxine Reflex 0.47 ng/dL (0.78-2.19)
[2023-06-14 16:23] LABS: Glucose Point of Care 133 mg/dl (65-105)
--- NOTE | 2023-06-14 20:28 | PC.NURSE ---
Pt was up in room with therapy. Pt drifts to the left when ambulating. Pt has difficulty performing heel/yan test L side. Pt denies hitting head with fall. Pt son reports pt having a lot of rugs in her home. Pt was educated by educator senior clinical nurse during shift hand off that those were a tripping hazard. Pt son was educated on signs of stroke, per his questioning. Pt does not express any needs and denies any pain. Pt was monitored for any changes in status.
[2023-06-14 21:31] LABS: Glucose Point of Care 147 mg/dl (65-105)
[2023-06-15] VITALS: PULSE 66
[2023-06-15 04:00] VITALS: PULSE 62
[2023-06-15 06:00] VITALS: BP 103/53; PULSE 54; RESP 14; TEMP 35.8; O2SAT 97
[2023-06-15] MEDS: LEVOTHYROXINE SODIUM 125 MCG TABLET PO (06:50)
[2023-06-15 08:00] VITALS: PULSE 61
[2023-06-15 08:01] LABS: Glucose Point of Care 126 mg/dl (65-105)
--- NOTE | 2023-06-15 09:28 | PCSTNOTE ---
Please refer to the Bedside Swallow Evaluation in the EMR. Please note, silent aspiration cannot be ruled out at bedside.
[2023-06-15] MEDS: metFORMIN HCL XR 500 MG TAB.SR.24H 2000 MG PO (09:44)
[2023-06-15] MEDS: ASPIRIN 81 MG ENTERIC TABLET PO (09:45)
[2023-06-15] MEDS: ATORVASTATIN 40 MG TABLET 80 MG PO (09:45)
[2023-06-15] MEDS: PANTOPRAZOLE 40 MG TABLET PO (09:45)
[2023-06-15 10:35] VITALS: BP 108/67; PULSE 69; RESP 17; TEMP 36.4; O2SAT 96
[2023-06-15 10:36] VITALS: BP 113/71; BP 120/66; PULSE 79; PULSE 90; RESP 17; TEMP 36.4; O2SAT 96; O2SAT 98
--- NOTE | 2023-06-15 10:48 | PM.DS ---
DS: Admitting Diagnosis Discharge Date 06/15/2023 Admitting Diagnosis CVA DS: Discharge Diagnosis Discharge Diagnosis (1) CVA (cerebral vascular accident): Code(s): I63.9 - Cerebral infarction, unspecified Status: Acute (2) Gait instability: Code(s): R26.81 - Unsteadiness on feet Status: Acute (3) Diabetic neuropathy: Code(s): E11.40 - Type 2 diabetes mellitus with diabetic neuropathy, unspecified Status: Acute (4) Uncontrolled type 2 diabetes mellitus with hyperglycemia: Code(s): E11.65 - Type 2 diabetes mellitus with hyperglycemia Status: Acute (5) Hypothyroidism (acquired): Code(s): E03.9 - Hypothyroidism, unspecified Status: Acute (6) Mixed hyperlipidemia: Code(s): E78.2 - Mixed hyperlipidemia Status: Acute DS: Summary Hospital Course Reason for hospitalization: patient was admitted to the hospital due to unsteady gait with a fall feeling like she was walking on still is. Hospital Course: Patient was admitted for stroke assessment. MRI shows chronic conserve limb lesion the left basal ganglion anterior limb left internal capsule with old blood products which along with diabetic neuropathy arefelt to be reason for patient's acute gait instability. neurologic assessment waxed and waned as far as ataxia and stability of gait. Patient was seen by Physical therapy and Occupational therapy and felt to be independent without need for rehabilitation. Neurology saw patient and noted positive Romberg. On day of discharge patient is wishing to return home a states she has a walker and lives next door to her sister. Patient denies need for any other assistive services. She is on aspirin and atorvastatin. Refills of all of her medications were prescribed. Status at Discharge Cognitive/behavioral status at discharge: Awake alert oriented and pleasant Functional status at discharge: independent ambulation Overall status at discharge: patient is back to baseline Time Spent with Patient Time attestation: Total time spent providing and/or coordinating discharge services: Time spent: Greater than 30 minutes Exam Narrative: GENERAL: Generally well appearing, alert and oriented, in no apparent distress. She is pleasant and conversant in full sentences. HEENT: Pupils are equally round and briskly reactive to light. Extraocular muscles are intact. Oral mucous membranes are moist without lesions. NECK: The patient has no noted JVD. No adenopathy is appreciated. CHEST/LUNGS: Lungs are clear bilaterally without rhonchi, rales, or wheezes. There is no subcutaneous air appreciated. There is no tenderness to the chest wall. HEART: The patient has a regular rate and rhythm. No murmurs, rubs, or gallops are appreciated. Distal pulses are 2+. No carotid bruits appreciated. ABDOMEN: The patient?s abdomen is soft, nontender, and nondistended. Bowel sounds are positive. No peritoneal signs. EXTREMITIES: The patient has no peripheral edema. There is no focal long bone tenderness or deformity. SKIN: The patient?s skin is warm and dry, without rashes or lesions. PSYCHIATRIC: The patient has normal mental status and has an appropriate affect. NEUROLOGIC: patient has no current findings of neurologic deficit either focal or global. DS: Data Data Completed and Pending Labs on day of discharge: Labs from last 24 hours 06/15/23 06/14/23 06/14/23 07:58 21:24 16:21 POC Capillary Glucose 126 H 147 H 133 H TSH (Reflex) Free T4 06/14/23 06/14/23 11:08 07:27 POC Capillary Glucose 175 H TSH (Reflex) 42.300 H Free T4 0.47 L Discharge Plan Discharge Attending physician on discharge: Abdoulaye Morin Consulting providers: Colin Omalley; Remberto Hyman; Roberto Hammer; Bruce Anderson; Davonte Leonard V. Discharging Clinician: Colin Omalley Anticipated Discharge Date/Time: 06/15/23 12:00 Patient Disposition: Home, Self-Care
[2023-06-15 11:50] LABS: Glucose Point of Care 150 mg/dl (65-105)
== END 2023-06-15 12:20 | disposition home or self-care (01) ==
LOC: ANHED 16:31 → ANH3MEDSUR 21:28
PROVIDERS: Nurse Practitioner; Preventive Medicine Aerospace Medicine; Admitting Provider Internal Medicine; Emergency Provider Emergency Medicine; PCP Family Medicine; Visit Provider Internal Medicine
DX: I63.9 Cerebral infarction, unspecified (principal); R26.81 Unsteadiness on feet; S09.90XA Unspecified injury of head, initial encounter; W19.XXXA Unspecified fall, initial encounter; M62.81 Muscle weakness (generalized); I10 Essential (primary) hypertension; E78.2 Mixed hyperlipidemia; E03.9 Hypothyroidism, unspecified; E11.65 Type 2 diabetes mellitus with hyperglycemia; E11.40 Type 2 diabetes mellitus with diabetic neuropathy, unspecified; R00.1 Bradycardia, unspecified; Z86.73 Personal history of transient ischemic attack (TIA), and cerebral infarction without residual deficits; R29.701 NIHSS score 1; Z79.01 Long term (current) use of anticoagulants; Z79.82 Long term (current) use of aspirin; Z83.3 Family history of diabetes mellitus; Z83.49 Family history of other endocrine, nutritional and metabolic diseases; Z82.3 Family history of stroke; Z79.84 Long term (current) use of oral hypoglycemic drugs; Z79.85 Long-term (current) use of injectable non-insulin antidiabetic drugs; Z79.899 Other long term (current) drug therapy
CPT/HCPCS: 36415; 70450; 70496; 70498; 70553; 80048; 80053; 80061; 81001; 82948; 83036; 84439; 84443; 85025; 85027; 92610; 93005; 96360; 97161; 97165; 99285; A9270; A9577; G0378; J1815; J7030; Q9967

== ENCOUNTER 2024-01-23 01:28 | Day surgery (SDC) | payer OTHER, SELFPAY ==
[2024-01-16 14:15] VITALS: BMI 28.4
[2024-01-23 09:15] VITALS: BP 135/87; PULSE 67; RESP 16; TEMP 36.4; O2SAT 99
[2024-01-23] MEDS: LACTATED RINGERS 1,000 ML 150 ML IV CONT (09:24)
[2024-01-23 09:26] LABS: Glucose Point of Care 147 mg/dl (65-105)
--- NOTE | 2024-01-23 09:49 | WPDANESEPPF ---
Anes - Initial Pre Proc Eval Procedure: Operation Date: 01/23/24 10:00 Proposed Procedures p Screening Colonoscopy - Luis Alfredo Zavaleta DO Date/Time: 01/23/24 09:49 Surgeon: Luis Alfredo Zavaleta DO Pre Op Diagnosis: Screening for malignant neoplasm of colon Patient Data Age: 63 Gender: F Height: 1.55 m Weight: 67.9 kg Last Vital Signs Temp 97.5 F L 01/23/24 09:15 Pulse 67 01/23/24 09:15 Resp 16 01/23/24 09:15 BP 135/87 01/23/24 09:15 Pulse Ox 99 01/23/24 09:15 O2 Del Method Room Air 01/23/24 09:15 Allergies Allergy/AdvReac Type Severity Reaction Status Date / Time etodolac Allergy Severe Numbness Verified 01/23/24 09:13 iodine Allergy Mild Other Verified 01/23/24 09:13 ibuprofen Allergy Unknown Palpitation Verified 01/23/24 09:13 s poison janet extract Allergy Unknown Unknown Verified 01/23/24 09:13 prednisone Allergy Unknown Unknown Verified 01/23/24 09:13 tramadol Allergy Unknown Unknown Verified 01/23/24 09:13 topiramate AdvReac Unknown Elevated Verified 01/23/24 09:13 glucose Home Medications Medication Instructions Recorded Confirmed Type aspirin 81 mg tablet 160 mg PO DAILY 12/21/20 01/23/24 History omeprazole 40 mg capsule,delayed 40 mg PO BID #180 caps 06/15/23 01/23/24 Rx release atorvastatin 80 mg tablet (Lipitor) 80 mg PO DAILY #90 tabs 09/19/23 01/23/24 Rx dulaglutide 0.75 mg/0.5 mL 0.75 mg (0.5 mL) subcut WEEKLY #6 09/19/23 01/23/24 Rx subcutaneous pen injector mL (Trulicity) levothyroxine 125 mcg tablet 125 mcg PO DAILY #90 tabs 09/19/23 01/23/24 Rx lisinopril 10 mg tablet 10 mg PO DAILY #90 tabs 09/19/23 01/23/24 Rx cyanocobalamin (vitamin B-12) 1,000 mcg PO DAILY #90 caps 09/29/23 01/23/24 Rx 1,000 mcg capsule metformin 500 mg tablet,extended 2,000 mg PO DAILY #360 tabs 03/26/24 04/16/24 Rx release 24 hr Laboratory Tests 01/23/24 09:23 POC Capillary Glucose 147 H mg/dl (65-105) Patient hx anesthesia problems: none Family hx anesthesia problems: none Results Review: All pre-operative results and documents have been reviewed as part of the pre-operative evaluation. [facility] Past Medical History Medical History Acute cerebral infarction Field's palsy BMI 26.0-26.9,adult BMI 27.0-27.9,adult BMI 28.0-28.9,adult BMI 29.0-29.9,adult BMI 29.0-29.9,adult BMI 30.0-30.9,adult Hyperlipidemia Hypothyroidism (acquired) Otitis media Uncontrolled type 2 diabetes mellitus with hyperglycemia Surgical History Surgical History H/O left knee surgery History of tonsillectomy S/P foot surgery, left Family History Family History Mother Diabetes mellitus Cerebrovascular accident Family history of pancreatic cancer Family history of thyroid disease Father Hypertension Family history of elevated blood lipids Diabetes mellitus Aphasia Parkinson's disease Sibling Diabetes mellitus TIA (transient ischemic attack) Social History Social History Social History: The patient works at a [employer]. The patient lives with her father and she has 3 sons. The patient is a lifelong nonsmoker. She does not use any marijuana, alcohol or illicit drugs. Patient desires to be a full code. Smoking status: Never smoker Second hand tobacco smoke exposure: Yes Alcohol intake: never Substance use: never Substance use type: does not use Do You Feel Safe in your Home?: Yes Lack of Transportation: No Lack of Food: Never True Current Housing: I Have Housing Concerned About Future Housing: No Difficulty Paying Gas/Electric Bills: No Difficulty Paying for Meds: No Currently Unemployed: No Education: Associate Degree Difficulty w/ Childcare or Family Care: No Living arrangements:
--- NOTE | 2024-01-23 10:05 | PM.IMHP ---
H&P: HPI History of Present Illness Date/Time: 01/23/24 10:05 Chief Complaint: Change in bowel habits Narrative: This is a 63-year-old woman who presents for colonoscopy. It has been about 20 years since her last colonoscopy. She does notice occasional rectal bleeding after bowel movements but denies any blood mixed with stool. She denies any family history of colon cancer. She does have constipation and states that she sometimes only has a bowel movement once a week. Review of Systems Review of Systems: All systems reviewed & are unremarkable except as noted in HPI and below Constitutional: Constitutional: Denies chills, Denies fever(s), Denies headache(s) and Denies weight loss Eyes: Eyes: Denies change in vision ENT: Denies dizziness, Denies headache(s), Denies neck mass and Denies throat swelling Cardiovascular: Cardiovascular: Denies chest pain, Denies lightheadedness and Denies dyspnea Respiratory: Respiratory: Denies cough, Denies dyspnea and Denies wheezing Gastrointestinal: Gastrointestinal: Denies abdominal pain, Denies change in bowel habits, Denies nausea and Denies vomiting Genitourinary: Genitourinary: Denies hematuria and Denies dysuria Musculoskeletal: Musculoskeletal: Reports as per HPI Integumentary/Breasts: Skin/Breast: Reports as per HPI Neurologic: Denies dizziness and Denies headache(s) Allergic/Immunologic: Allergic/Immunologic: Denies throat swelling and Denies wheezing PMFSH Past Medical History Medical History Acute cerebral infarction Field's palsy BMI 26.0-26.9,adult BMI 27.0-27.9,adult BMI 28.0-28.9,adult BMI 29.0-29.9,adult BMI 29.0-29.9,adult BMI 30.0-30.9,adult Hyperlipidemia Hypothyroidism (acquired) Otitis media Uncontrolled type 2 diabetes mellitus with hyperglycemia Surgical History Surgical History H/O left knee surgery History of tonsillectomy S/P foot surgery, left Family History Family History Mother Diabetes mellitus Cerebrovascular accident Family history of pancreatic cancer Family history of thyroid disease Father Hypertension Family history of elevated blood lipids Diabetes mellitus Aphasia Parkinson's disease Sibling Diabetes mellitus TIA (transient ischemic attack) Social History Social History Social History: The patient works at a [employer]. The patient lives with her father and she has 3 sons. The patient is a lifelong nonsmoker. She does not use any marijuana, alcohol or illicit drugs. Patient desires to be a full code. 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 Gender identity (if verbalized by the patient): Female Spiritual care concerns: No Meds Home Medications and Allergies Home Medications Medication Instructions Recorded Confirmed Type aspirin 81 mg tablet 160 mg PO DAILY 12/21/20 01/23/24 History omeprazole 40 mg capsule,delayed 40 mg PO BID #180 caps 06/15/23 01/23/24 Rx release atorvastatin 80 mg tablet (Lipitor) 80 mg PO DAILY #90 tabs 09/19/23 01/23/24 Rx dulaglutide 0.75 mg/0.5 mL 0.75 mg (0.5 mL) subcut WEEKLY #6 09/19/23 01/23/24 Rx subcutaneous pen injector mL (Trulicity) levothyroxin
[2024-01-23 10:44] VITALS: BP 120/70; PULSE 60; RESP 24; O2SAT 99
[2024-01-23 10:54] VITALS: BP 119/69; PULSE 58; RESP 21; O2SAT 99
[2024-01-23 11:04] VITALS: BP 122/68; PULSE 55; RESP 21; O2SAT 99
== END 2024-01-23 11:16 | disposition home or self-care (01) ==
PROVIDERS: PCP Family Medicine; Visit Provider Surgery
PROC: 0DJD8ZZ Inspection of Lower Intestinal Tract, Via Natural or Artificial Opening Endoscopic (ICD-10-PCS; CPT 45378; principal; 2024-01-23 10:00)
DX: Z12.11 Encounter for screening for malignant neoplasm of colon (principal); K64.8 Other hemorrhoids; K59.00 Constipation, unspecified; E78.5 Hyperlipidemia, unspecified; E03.9 Hypothyroidism, unspecified; E11.9 Type 2 diabetes mellitus without complications; Z86.73 Personal history of transient ischemic attack (TIA), and cerebral infarction without residual deficits; Z79.85 Long-term (current) use of injectable non-insulin antidiabetic drugs; Z79.84 Long term (current) use of oral hypoglycemic drugs; Z79.82 Long term (current) use of aspirin
CPT/HCPCS: 45378; 82948; J2704; J7120

== ENCOUNTER 2024-08-22 13:51 | Emergency (ER) | payer OTHER, SELFPAY ==
--- NOTE | ~2024-08-22 | XR_ITS ---
EXAMINATION: XR chest 2V DATE: 08/22/2024 15:40 INDICATION: Cerebrovascular accident. TECHNIQUE: Frontal and lateral views of the chest were obtained. COMPARISON: Chest 2 views 07/25/2022 FINDINGS: Calcified bilateral lung nodules are consistent with old granulomatous disease. No pleural effusion or pneumothorax. The heart size is normal. IMPRESSION: 1. No acute cardiopulmonary disease. Reviewed, dictated and finalized at location A. [facility]
--- NOTE | ~2024-08-22 | CT_ITS ---
EXAMINATION: CT brain wo con DATE: 08/22/2024 15:49 INDICATION: Left facial tingling and numbness TECHNIQUE: Computed tomography (CT) of the head was performed without intravenous contrast. Sagittal and coronal reconstructions were performed. The mA was adjusted according to patient size. Iterative reconstruction technique was employed. The dose-length product was 605.33 mGy-cm. COMPARISON: Brain MR dated 06/14/[address] angiogram dated 06/13/2023 FINDINGS: No interval change in a small region of chronic encephalomalacia at the left basal ganglia involving the anterior lentiform and caudate nuclei and intervening anterior limb of the left internal capsule consistent with sequela of old infarct. No acute intracranial hemorrhage, acute infarction or abnorma l extra axial fluid collection. Ventricles are normal and symmetric. No mass/mass effect. Intracrania l calcified cerebral atherosclerosis is again seen at the carotid siphons. The orbits, paranasal sinu ses and mastoid air cells are normal. IMPRESSION: 1. Stable appearance of a small region of encephalomalacia at the left basal ganglia, likely sequela of old infarct. No acute intracranial process. Reviewed, dictated and finalized at location B. [facility] IMPRESSION: 1. Stable appearance of a small region of encephalomalacia at the left basal ga nglia, likely sequela of old infarct. No acute intracranial process.
[2024-08-22 14:05] VITALS: BP 136/66; PULSE 88; RESP 18; TEMP 36.4; O2SAT 100
--- NOTE | 2024-08-22 14:46 | ED_ITS ---
HPI - Neuro Symptoms/Deficit General Chief Complaint: Neuro Symptoms/Deficit <Oly Izaguirre PA-C - Last Filed: 08/22/24 15:01> Stated Complaint: Numbess and tingling L side, Monday <Oly Izaguirre PA-C - Last Filed: 08/22/24 15:01> Time Seen by Provider: 08/22/24 19:42 <Oly Izaguirre PA-C - Last Filed: 08/22/24 15:01> Focused HPI: 64-year-old female history of CVA 5 years ago, diabetes, hypothyroidism, hypertension, GERD presents to the emergency department with numbness and tingling to the left face, arm and leg for 4 days. Denies vision changes, focal weakness, head injury or trauma, chest pain or shortness of breath. She has been compliant with her medications. GENERAL: Well-appearing, well-nourished, and in no acute distress. HEAD: Normocephalic, atraumatic. CHEST: Clear to auscultation. ?No respiratory distress. HEART: Regular rate and rhythm.? NEURO: ?Alert and oriented x3. Cranial nerves 2-12 intact. Strength 5/5 in BUE and BLE. Patient reports ?tingling? sensation when I touch her left upper extremity, left leg and left V3 distribution. Normal [id number]. No pronat or drift. Patient screened in triage and initial orders placed.? ?Additional care and disposition to be based upon?diagnostic testing and treatment. <Oly Izaguirre PA-C - Last Filed: 08/22/24 15:01> History of Present Illness HPI Narrative: 64 YEARS OLD WHITE FEMALE DROVE HERSELF TO THE EMERGENCY ROOM COMPLAINING OF INTERMITTENT NUMBNESS OF THE LEFT SIDE OF THE FACE LAST FOR MINUTES OR HOURS THEN RESOLVES. SHE DENIES ANY NUMBNESS OR TINGLING OR WEAKNESS ANYWHERE ELSE. DIABETES HYPERTENSION HYPERLIPIDEMIA HYPOTHYROIDISM ACID REFLUX, STROKE 5 YEARS AGO WITHOUT RESIDUAL NEUROLOGIC ABNORMALITIES, HISTORY OF FIELD'S PALSY. PATIENT DOES NOT SMOKE OR DRINK. <Uzma Rico MD - Last Filed: 08/22/24 20:24> Related Data Home Medications: Home Medications Medication Instructions Recorded Confirmed aspirin 81 mg tablet 160 mg PO DAILY 12/21/20 01/23/24 <Oly Izaguirre PA-C - Last Filed: 08/22/24 15:01> Allergies/Adverse Reactions: Allergies Allergy/AdvReac Type Severity Reaction Status Date / Time etodolac Allergy Severe Numbness Verified 08/22/24 13:52 iodine Allergy Mild Other Verified 08/22/24 13:52 ibuprofen Allergy Unknown Palpitation Verified 08/22/24 13:52 s poison ajnet extract Allergy Unknown Unknown Verified 08/22/24 13:52 prednisone Allergy Unknown Unknown Verified 08/22/24 13:52 tramadol Allergy Unknown Unknown Verified 08/22/24 13:52 topiramate AdvReac Unknown Elevated Verified 08/22/24 13:52 glucose <Oly Izaguirre PA-C - Last Filed: 08/22/24 15:01> Review of Systems Review of Systems: All systems reviewed & are unremarkable except as noted in HPI and below <Uzma Rico MD - Last Filed: 08/22/24 20:24> COUNT INCLUDES THE [facility] Past Medical History Medical History: Medical History Acute cerebral infarction Field's palsy BMI 26.0-26.9,adult BMI 27.0-27.9,adult BMI 28.0-28.9,adult BMI 29.0-29.9,adult BMI 29.0-29.9,adult BMI 30.0-30.9,adult Hyperlipidemia Hypothyroidism (acquired) Otitis media Uncontrolled type 2 diabetes mellitus with hyperglycemia <ANTONY Bruce Last Filed: 08/22/24 15:01> Surgical History Surgical History: Surgical History H/O left knee surgery History of tonsillectomy S/P foot surgery, left <Oly Izaguirre PA-C - Last Filed: 08/22/24 15:01> Family History Family History: Family History Mother Diabetes mellitus Cerebrovascular accident Family history of pancreatic cancer Family history of thyroid disease Father Hypertension Family history of elevated blood lipids Diabetes mellitus Aphasia Parkinson's disease Sibling Diabetes mellitus TIA (transient ischemic attack) <Oly Izaguirre PA-C - Last Filed: 08/22/24 15:01> Social History Social History: Social History Social History: 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 The patient lives with her father and she has 3 sons. The patient is a lifelong nonsmoker. She does not use any marijuana, alcohol or illicit drugs. Patient desires to be a full code. 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 Gender identity (if verbalized by the patient): Female Spiritual care concerns: No <Oly Izaguirre PA-C - Last Filed: 08/22/24 15:01> Exam Narrative: GENERAL APPEARANCE: WELL-DEVELOPED, WELL-NOURISHED SKIN: NORMAL COLOR HEAD: NORMOCEPHALIC, NONTRAUMATIC EYES: CLEAR CONJUNCTIVA ENT: OROPHARYNX NORMAL, EARS NORMAL, NOSE NORMAL NECK: SUPPLE, NONTENDER CHEST AND RESPIRATORY: AIRWAY PATENT, NO RESPIRATORY DISTRESS, NO ACCESSORY MUSCLE USE HEART: REGULAR RATE/RHYTHM ABDOMEN: SOFT, NONTENDER, NO ORGANOMEGALY, QUIET BOWEL SOUNDS VASCULAR: NORMAL PERIPHERAL PULSES, NORMAL CAPILLARY REFILL. 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 IS NORMAL TESTED, NO GROSS MOTOR DEFICIT <Uzma Rico MD - Last Filed: 08/22/24 20:24> Course Vital Signs Vital signs: Vital Signs Temperature 36.4 C 08/22/24 14:05 Pulse Rate 88 08/22/24 14:05 Respiratory Rate 18 08/22/24 14:05 Blood Pressure 136/66 08/22/24 14:05 Pulse Oximetry 100 08/22/24 14:05 Temperature 36.7 C 08/22/24 18:01 Pulse Rate 73 08/22/24 18:01 Respiratory Rate 15 08/22/24 18:01 Blood Pressure 138/75 08/22/24 18:01 Pulse Oximetry 99 08/22/24 18:01 <Oly Izaguirre PA-C - Last Filed: 08/22/24 15:01> Vital Signs Temperature 36.4 C 08/22/24 14:05 Pulse Rate 88 08/22/24 14:05 Respiratory Rate 18 08/22/24 14:05 Blood Pressure 136/66 08/22/24 14:05 Pulse Oximetry 100 08/22/24 14:05 Temperature 36.7 C 08/22/24 18:01 Pulse Rate 73 08/22/24 18:01 Respiratory Rate 15 08/22/24 18:01 Blood Pressure 138/75 08/22/24 18:01 Pulse Oximetry 99 08/22/24 18:01 <Uzma Rico MD - Last Filed: 08/22/24 20:24> MDM - Neuro Symptoms/Deficit MDM Narrative Medical decision making narrative: PATIENT CAME WITH INTERMITTENT NUMBNESS OF THE LEFT FACE. DENIES ANY NUMBNESS ANYWHERE ELSE. VITAL SIGNS ARE STABLE PHYSICAL EXAMINATION SHOWED NO FACIAL DROOPING OR ANY NEUROLOGIC ABNORMALITIES. BLOOD WORKUP TODAY INCLUDES CBC, CMP SHOWED NO SIGNIFICANT ABNORMALITIES URINE ANALYSIS SHOWED SIGNS OF INFECTION <Uzma Rico MD - Last Filed: 08/22/24 20:24> Lab Data Result diagrams: 08/22/24 16:37 08/22/24 16:37 <Oly Izaguirre PA-C - Last Filed: 08/22/24 15:01> Labs: Lab Results 08/22/24 Range/Units 16:37 WBC 6.7 (4.5-10.0) K/mm3 RBC 4.23 (4.2-5.4) M/mm3 Hgb 13.0 (12.0-15.0) g/dL Hct 38.1 (37.0-47.0) % MCV 90.1 (80-100) fl MCH 30.7 (26-34) pg MCHC 34.1 (32-36) g/dl RDW 13.8 (11.5-14.5) % Plt Count 296 (150-375) k/mm3 MPV 8.4 (7.4-10.4) fl Immature Gran % (Auto) 1.2 H (0-0.5) % Neut % (Auto) 54.4 (45.5-73.1) % Lymph % (Auto) 33.4 (18.3-44.2) % Pershing % (Auto) 6.1 (2.6-8.5) % Eos % (Auto) 4.0 (0-4.4) % Baso % (Auto) 0.9 (0.2-1.2) % Lymph # (Auto) 2.23 (0.9-3.2) K/mm3 Pershing # (Auto) 0.4 (0.1-0.6) K/mm3 Eos # (Auto) 0.3 (0-0.3) K/mm3 Baso # (Auto) 0.1 (0.0-0.1) K/mm3 Abs Immat Gran (auto) 0.08 H (0.00-0.031) K/mm3 Absolute Neuts (auto) 3.6 (1.3-6.7) K/mm3 Absolute Nucleated RBC 0.000 (0.0-0.012) K/mm3 Nucleated RBC % 0.0 (0.0-0.2) % PT 13.2 (11.1-14.7) Seconds INR 1.0 APTT 27.4 (22.3-36.8) Seconds Sodium 140 (137-145) mmol/L Potassium 3.4 (3.4-5.0) mmol/L Chloride 98 (98-107) mmol/L Carbon Dioxide 34 H (22-30) mmol/L Anion Gap 8 (4-12) mmol/L BUN 6 L D (7-17) mg/dL Creatinine 0.60 L (0.7-1.0) mg/dL Estim Creat Clear Calc 72 ml/min Estimated GFR > 60 (59 - ) Glucose 104 (65-110) mg/dL Calcium 9.5 (8.4-10.2) mg/dL Magnesium 1.7 (1.6-2.3) mg/dL Total Bilirubin 0.5 (0.2-1.3) mg/dL AST 25 (14-36) U/L ALT 17 (6-35) U/L Alkaline Phosphatase 85 (38-126) U/L Troponin I < 0.012 (0.000-0.034) ng/mL Total Protein 9.0 H (6.3-8.2) g/dL Albumin 4.8 (3.5-5.1) g/dL TSH (Reflex) 5.470 H (0.465-4.68) uIU/mL Free T4 1.15 (0.78-2.19) ng/dL Total T3 Pending Urine Color Yellow (Yellow) Urine Appearance Clear (Clear) Urine pH 5.5 (5.0-9.0) Ur Specific [place] 1.011 (1.001-1.035) Urine Protein Negative (Negative) mg/dL Urine Glucose (UA) Negative (Negative) mg/dL Urine Ketones Negative (Negative) mg/dL Ur Blood (Man) Negative (Negative) Urine Nitrate Negative (Negative) Urine Bilirubin Negative (Negative) Urine Urobilinogen 0.2 (<2.0) mg/dL Leukocyte Esterase Rfl 2+ H (Negative) JANUSZ/UL Urine RBC 0-2 (0-2) /hpf Urine WBC 11-20 H (0-3) /hpf Ur Squamous Epith Cells Few (Few) /hpf Urine Bacteria Rare /hpf Urine Casts 0-2 <Oly Izaguirre PA-C - Last Filed: 08/22/24 15:01> Lab Results 08/22/24 Range/Units 16:37 WBC 6.7 (4.5-10.0) K/mm3 RBC 4.23 (4.2-5.4) M/mm3 Hgb 13.0 (12.0-15.0) g/dL Hct 38.1 (37.0-47.0) % MCV 90.1 (80-100) fl MCH 30.7 (26-34) pg MCHC 34.1 (32-36) g/dl RDW 13.8 (11.5-14.5) % Plt Count 296 (150-375) k/mm3 MPV 8.4 (7.4-10.4) fl Immature Gran % (Auto) 1.2 H (0-0.5) % Neut % (Auto) 54.4 (45.5-73.1) % Lymph % (Auto) 33.4 (18.3-44.2) % Pershing % (Auto) 6.1 (2.6-8.5) % Eos % (Auto) 4.0 (0-4.4) % Baso % (Auto) 0.9 (0.2-1.2) % Lymph # (Auto) 2.23 (0.9-3.2) K/mm3 Pershing # (Auto) 0.4 (0.1-0.6) K/mm3 Eos # (Auto) 0.3 (0-0.3) K/mm3 Baso # (Auto) 0.1 (0.0-0.1) K/mm3 Abs Immat Gran (auto) 0.08 H (0.00-0.031) K/mm3 Absolute Neuts (auto) 3.6 (1.3-6.7) K/mm3 Absolute Nucleated RBC 0.000 (0.0-0.012) K/mm3 Nucleated RBC % 0.0 (0.0-0.2) % PT 13.2 (11.1-14.7) Seconds INR 1.0 APTT 27.4 (22.3-36.8) Seconds Sodium 140 (137-145) mmol/L Potassium 3.4 (3.4-5.0) mmol/L Chloride 98 (98-107) mmol/L Carbon Dioxide 34 H (22-30) mmol/L Anion Gap 8 (4-12) mmol/L BUN 6 L D (7-17) mg/dL Creatinine 0.60 L (0.7-1.0) mg/dL Estim Creat Clear Calc 72 ml/min Estimated GFR > 60 (59 - ) Glucose 104 (65-110) mg/dL Calcium 9.5 (8.4-10.2) mg/dL Magnesium 1.7 (1.6-2.3) mg/dL Total Bilirubin 0.5 (0.2-1.3) mg/dL AST 25 (14-36) U/L ALT 17 (6-35) U/L Alkaline Phosphatase 85 (38-126) U/L Troponin I < 0.012 (0.000-0.034) ng/mL Total Protein 9.0 H (6.3-8.2) g/dL Albumin 4.8 (3.5-5.1) g/dL TSH (Reflex) 5.470 H (0.465-4.68) uIU/mL Free T4 1.15 (0.78-2.19) ng/dL Total T3 Pending Urine Color Yellow (Yellow) Urine Appearance Clear (Clear) Urine pH 5.5 (5.0-9.0) Ur Specific [place] 1.011 (1.001-1.035) Urine Protein Negative (Negative) mg/dL Urine Glucose (UA) Negative (Negative) mg/dL Urine Ketones Negative (Negative) mg/dL Ur Blood (Man) Negative (Negative) Urine Nitrate Negative (Negative) Urine Bilirubin Negative (Negative) Urine Urobilinogen 0.2 (<2.0) mg/dL Leukocyte Esterase Rfl 2+ H (Negative) JANUSZ/UL Urine RBC 0-2 (0-2) /hpf Urine WBC 11-20 H (0-3) /hpf Ur Squamous Epith Cells Few (Few) /hpf Urine Bacteria Rare /hpf Urine Casts 0-2 <Uzma Rico MD - Last Filed: 08/22/24 20:24> Discharge Plan Discharge Clinical Impression: Paresthesia, Urinary tract infection <Oly Izaguirre PA-C - Last Filed: 08/22/24 15:01> Patient Disposition: Home, Self-Care <Oly Izaguirre PA-C - Last Filed: 08/22/24 15:01> Condition: Stable <Oly Izaguirre PA-C - Last Filed: 08/22/24 15:01> Instructions: Urinary Tract Infection in Women (DC), Paresthesia (ED) <Oly Izaguirre PA-C - Last Filed: 08/22/24 15:01> Additional Instructions: RETURN IF SYMPTOMS ARE WORSENING , CALL YOUR FAMILY PHYSICIAN,AND NEUROLOGIST FOR APPOINTMENT, TAKE TYLENOL NEEDED FOR ACHES AND PAIN, CONTINUE HOME MEDICATIONS. <Oly Izaguirre PA-C - Last Filed: 08/22/24 15:01> Prescriptions: New nitrofurantoin monohyd/m-cryst [Macrobid] 100 mg capsule 100 mg PO Q12H 5 Days Qty: 10 0RF Rx Instructions: must administer with a meal/food No Action lisinopril 10 mg tablet 10 mg PO DAILY Qty: 90 1RF atorvastatin [Lipitor] 80 mg tablet 80 mg PO DAILY Qty: 90 3RF Trulicity 0.75 mg/0.5 mL pen injector 0.75 mg subcut WEEKLY Qty: 6 6RF metformin 500 mg tablet extended release 24 hr 2,000 mg PO DAILY Qty: 360 0RF aspirin 81 mg Tablet 160 mg PO DAILY omeprazole 40 mg capsule,delayed release(DR/EC) 40 mg PO BID Qty: 180 1RF cyanocobalamin (vitamin B-12) 1,000 mcg capsule 1,000 mcg PO DAILY Qty: 90 0RF levothyroxine 125 mcg tablet 125 mcg PO DAILY Qty: 90 0RF <Oly Izaguirre PA-C - Last Filed: 08/22/24 15:01> Follow-up/Referrals: Will Ferguson MD [Physician] - 08/26/24 Adalberto Mcdermott MD [Primary Care Provider] - <Oly Izaguirre PA-C - Last Filed: 08/22/24 15:01> Stand Alone Forms: Work/School Release IP <Oly Izaguirre PA-C - Last Filed: 08/22/24 15:01> Quality Stroke Scale Stroke Scale 1: Stroke scale date:: 08/22/24 <Uzma Rico MD - Last Filed: 08/22/24 20:24> Stroke scale time:: 20:17 <Uzma Rico MD - Last Filed: 08/22/24 20:24> 1a Level of consciousness: alert-0 <Uzma Rico MD - Last Filed: 08/22/24 20:24> 1b Level of consciousness questions: answers both correctly-0 <Uzma Rico MD - Last Filed: 08/22/24 20:24> 1c Level of consciousness commands: obeys both correctly-0 <Uzma Rico MD - Last Filed: 08/22/24 20:24> 2 Best gaze: normal-0 <Uzma Rico MD - Last Filed: 08/22/24 20:24> 3 Visual: no visual loss-0 <Uzma Rico MD - Last Filed: 08/22/24 20:24> 4 Facial palsy: normal-0 <Uzma Rico MD - Last Filed: 08/22/24 20:24> 5a Motor: left arm: no drift-0 <Uzma Rico MD - Last Filed: 08/22/24 20:24> 5b Motor: right arm: no drift-0 <Uzma Rico MD - Last Filed: 08/22/24 20:24> 6a Motor: left leg: no drift-0 <Uzma Rico MD - Last Filed: 08/22/24 20:24> 6b Motor: right leg: no drift-0 <Uzma Rico MD - Last Filed: 08/22/24 20:24> 7 Limb ataxia: absent-0 <Uzma Rico MD - Last Filed: 08/22/24 20:24> 8 Sensory: normal-0 <Uzma Rico MD - Last Filed: 08/22/24 20:24> 9 Best language: no aphasia-0 <Uzma Rico MD - Last Filed: 08/22/24 20:24> 10 Dysarthria: normal-0 <Uzma Rico MD - Last Filed: 08/22/24 20:24> 11 Extinction and inattention: no abnormality-0 <Uzma Rico MD - Last Filed: 08/22/24 20:24> Level:: 0 <Uzma Rico MD - Last Filed: 08/22/24 20:24>
--- NOTE | 2024-08-22 16:41 | ECG_ITS ---
Test Date: 2024-08-22 16:41:42 Measurements Intervals [place] Rate: 80 P: 61 SC: 156 QRS: 11 QRSD: 93 T: 55 QT: 382 QTc: 442 Interpretive Statements SINUS RHYTHM BORDERLINE R WAVE PROGRESSION, ANTERIOR LEADS BORDERLINE ST-T WAVE ABNORMALITY- DIFFUSE LEADS BASELINE ARTIFACT- I, II, III, AVR, AVL, AVF BORDERLINE ECG No previous ECG available for comparison Electronically Signed On 08-23-2024 06:28:14 BILLING MACHINE OPERATOR by Roberto Hammer D.O.
[2024-08-22 16:48] LABS: Basophils Absolute Auto 0.1 K/mm3 (0.0-0.1); Basophils Percent Auto 0.9 % (0.2-1.2); Eosinophils Absolute Auto 0.3 K/mm3 (0-0.3); Hematocrit 38.1 % (37.0-47.0); Immature Granulocyte Absolute 0.08 K/mm3 (0.00-0.031); Immature Granulocyte Percent A 1.2 % (0-0.5); Lymphocytes Absolute Auto 2.23 K/mm3 (0.9-3.2); Lymphocytes Percent Auto 33.4 % (18.3-44.2); Mean Corpuscular HGB Conc 34.1 g/dl (32-36); Mean Corpuscular Hemoglobin 30.7 pg (26-34); Mean Corpuscular Volume 90.1 fl (80-100); Mean Platelet Volume 8.4 fl (7.4-10.4); Monocytes Absolute Auto 0.4 K/mm3 (0.1-0.6); Monocytes Percent Auto 6.1 % (2.6-8.5); Neutrophils Absolute Auto 3.6 K/mm3 (1.3-6.7); Neutrophils Percent Auto 54.4 % (45.5-73.1); Platelet Count Result 296 k/mm3 (150-375); Red Blood Count 4.23 M/mm3 (4.2-5.4); Red Cell Distribution Width 13.8 % (11.5-14.5); White Blood Count 6.7 K/mm3 (4.5-10.0)
[2024-08-22 16:55] LABS: Add Urine Microscopic? YES; Appearance Urine Clear (Clear); Bacteria Urine Rare /hpf; Bilirubin Urine Negative (Negative); Blood Urine Negative (Negative); Color Urine Yellow (Yellow); Glucose Urine UA Negative (Negative); Ketones Urine Negative (Negative); Leukocyte Esterase Ur 2+ LEU/UL (Negative); Nitrate Urine Negative (Negative); Non Pathogenic Casts 0-2; Protein Urine Negative (Negative); RBC Urine 0-2 /hpf (0-2); Specific Grav Ur 1.011 (1.001-1.035); Squamous Epithelial Cell Urine Few /hpf (Few); Urobilinogen Urine 0.2 mg/dL (<2.0); pH Urine 5.5 (5.0-9.0)
[2024-08-22 17:05] LABS: Alanine Aminotransferase 17 U/L (6-35); Albumin Level 4.8 g/dL (3.5-5.1); Alkaline Phosphatase 85 U/L (38-126); Anion Gap 8 mmol/L (4-12); Aspartate Amino Transferase 25 U/L (14-36); Bilirubin,Total 0.5 mg/dL (0.2-1.3); Blood Urea Nitrogen 6 mg/dL (7-17); Calcium 9.5 mg/dL (8.4-10.2); Carbon Dioxide 34 mmol/L (22-30); Chloride 98 mmol/L (98-107); Estimated CRCL calculation 72 ml/min; Estimated Glomerular Filt Rate > 60; Glucose 104 mg/dL (65-110); Magnesium 1.7 mg/dL (1.6-2.3); Potassium 3.4 mmol/L (3.4-5.0); Prothrombin Time 13.2 Seconds (11.1-14.7); Sodium 140 mmol/L (137-145)
[2024-08-22 17:06] LABS: Partial Thromboplastin Time 27.4 Seconds (22.3-36.8)
[2024-08-22 17:10] LABS: Troponin I < 0.012 ng/mL (0.000-0.034)
[2024-08-22 18:01] VITALS: BP 138/75; PULSE 73; RESP 15; TEMP 36.7; O2SAT 99
[2024-08-22 19:37] LABS: Free T4 Free Thyroxine Reflex 1.15 ng/dL (0.78-2.19)
[2024-08-22 21:55] LABS: Total Triiodothyronine (T3) 1.28 NG/ML (0.97-1.69)
== END 2024-08-22 20:31 | disposition home or self-care (01) ==
PROVIDERS: Physician Assistant; Emergency Provider Emergency Medicine; PCP Family Medicine
DX: R20.2 Paresthesia of skin (principal); N39.0 Urinary tract infection, site not specified; E11.9 Type 2 diabetes mellitus without complications; E03.9 Hypothyroidism, unspecified; I10 Essential (primary) hypertension; K21.9 Gastro-esophageal reflux disease without esophagitis; Z86.73 Personal history of transient ischemic attack (TIA), and cerebral infarction without residual deficits; Z79.82 Long term (current) use of aspirin
CPT/HCPCS: 36415; 70450; 71046; 80053; 81001; 83735; 84439; 84443; 84480; 84484; 85025; 85610; 85730; 87086; 93005; 99284

== ENCOUNTER 2024-11-06 06:48 | Outpatient (CLI) | payer OTHER, SELFPAY ==
--- NOTE | ~2024-11-06 | US_ITS ---
EXAMINATION: US thyroid DATE: 11/06/2024 07:32 INDICATION: Autoimmune thyroiditis. TECHNIQUE: Multiple ultrasound images of the thyroid were obtained. COMPARISON: Ultrasound thyroid 03/14/18 FINDINGS: The right thyroid lobe measures 4.1 x 1.6 x 1.8 cm. The left thyroid lobe measures 3.7 x 2.5 x 1.4 c m. The thyroid is diffusely heterogeneous and hypoechoic with increased vascularity. No discrete nod ule. IMPRESSION: 1. 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 Reviewed, dictated and finalized at location A. DENT ASSISTANT IMPRESSION: 1. 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
--- OUTSIDE RECORDS SUMMARY | 2024-11-06 06:51 | XMS_ITS | Clinical Summary ---
Author Organization [facility] Address [address] [place] [address] Phone Care Team Providers Care Certified Medical Coding Specialist Name Role Phone Gretta Johns Primary Care Provider [phone] Allergies Active Allergy Reactions Criticality Noted Date Comments Ibuprofen Other (see Comments) 12/05/2023 HEART RACES Etodolac Other (see Comments) 12/05/2023 COULD NOT MOVE Prednisone Other (see Comments) 12/05/2023 INCREASES GLUCOSE ABOVE 500 Tramadol Other (see Comments) 12/05/2023 COULD NOT MOVE Medications levothyroxine (SYNTHROID) 125 MCG Tablet Take 125 mcg by mouth daily. Active lisinopril (PRINIVIL, ZESTRIL) 10 MG Tablet Take 10 mg by mouth daily. Active aspirin EC 81 MG Tablet Delayed Response Take 162 mg by mouth daily. Active Cholecalciferol (VITAMIN D3 PO) Take 1 Tablet by mouth daily. Active omeprazole (PriLOSEC) 40 MG CAPSULE DELAYED RELEASE Take 40 mg by mouth daily. Active Cyanocobalamin (VITAMIN B-12 PO) Take 1 Tablet by mouth daily. Active atorvastatin (LIPITOR) 80 MG Tablet Take 80 mg by mouth daily. Active metFORMIN (GLUCOPHAGE-XR) 500 MG TABLET SR 24 HR Take 1,000 mg by mouth daily. This RX is for Metformin SR. Active dulaglutide (Trulicity) 0.75 MG/0.5ML Solution Pen-injector 0.75 mg by Subcutaneous route once a week. SUNDAYS Active Active Problems Problem Noted Date Diagnosed Date Right knee pain 12/21/2023 Family History Medical History Relation Name Comments Cancer Father PROSTATE Diabetes Mother Stroke Mother Thyroid Disease Mother Relation Name Status Comments Father Alive Mother Social History Tobacco Use Types Packs/Day Years Used Date Smoking Tobacco: Never Smokeless Tobacco: Never Tobacco Cessation:Counseling Given: Not Answered Alcohol Use Standard Drinks/Week Comments Never 0 (1 standard drink = 0.6 oz pur e alcohol) Comments No Sex and Gender Information Value Date Recorded Sex Assigned at Not on file Legal Sex Female 8:31 PM CDT Gender Identity Not on file Sexual Orientation Not on file Last Filed Vital Signs Vital Sign Reading Time Taken Comments Blood Pressure 135/79 12/21/2023 3:00 PM CDT Pulse 67 12/21/2023 3:00 PM CDT Temperature 35.9 ??C (96.6 ??F) 12/21/2023 3:00 PM CD T Respiratory Rate 14 12/21/2023 3:00 PM CDT Oxygen Saturation 94% 12/21/2023 3:00 PM CDT Inhaled Oxygen Concentration - - Weight 70.8 kg (156 lb 3 oz) 12/21/2023 7:48 AM CDT Height 154.9 cm (5' 1 ) 12/21/2023 7:48 AM CDT Body Mass Index 29.51 12/21/2023 7:48 AM CDT Plan of Treatment Health Maintenance Due Date Last Done Comments DEXA Bone Density 1959 Hepatitis C Virus (HCV) Screening 1959 Colonoscopy 2004 Colorectal Cancer Screening 2004 Cologuard 2009 Immunochemical Fecal Occult Blood 2009 Pneumococcal Immunization (50+ years) (1 of 1 - PCV) 2009 Zoster Immunization (1 of 2) 2009 Mammogram 01/09/2023 01/09/2021, 01/09/2021 Influenza Immunization (#1) 2024 10/0 01/2023, 07/13/2022, 07/09/2021, Additional history exists SARS-COV-2 Immunization ( - season) 2024 02/26/2021, 02/02/2021 Respiratory Syncytial Virus (RSV) Immunization (Adult) (1 - 1-dose 75+ series) 2034 DTaP/Tdap/Td Immunization Discontinued 07/26/2016 TdaP Immunization Completed 07/26/2016 Hepatitis B Immunization Aged Out No longer eligible based on patient's age to complete this topic Meningococcal Immunization (ACWY) Aged Out No longer eligible based on patient's age to complete this topic Rotavirus Immunization Aged Out No lo nger eligible based on patient's age to complete this topic Procedures Procedure Name Priority Date/Time Associated Diagnosis Comments JALEN SCREENING BILATERAL DIGITAL W CAD W LIZZIE Routine 01/09/2021 8:50 AM CDT Encounter for screening mammogram for malignant neoplasm of breast from Last 3 Months or Most Recently Relevant to Health Maintenance Results * JALEN SCREENING BILATERAL DIGITAL W CAD W LIZIZE (01/09/2021 8:50 AM CDT) Anatomical Region Laterality Modality breast Bilateral Mammography 01/09/2021 8:45 AM CDT Narrative 01/11/2021 12:47 PM CDT - JALEN SCREENING BILATERAL DIGITAL W CAD W LIZZIE BILATERAL DIGITAL SCREENING MAMMOGRAM 3D/2D WITH CAD WITH MEDIOLATERAL OBLIQUE CRANIOCAUDAL: 01/09/2021 The study was acquired using digital technology and interpreted from soft copy. ?? Current study was also evaluated with ICAD version 7.2. ?? CLINICAL: New baseline. Patient has no complaints. No personal history of cancer. No family history of breast cancer. ?? COMPARISONS: No prior exams were available for comparison. ?? BREAST TISSUE:There are scattered fibroglandular densities in both breasts. ?? FINDINGS: There are benign vascular calcifications in both breasts. ?? No significant masses, calcifications, or other findings are seen in either breast. ?? IMPRESSION: BI-RAD 2 ??BENIGN There is no mammographic evidence of malignancy. A 1 year screening mammogram is recommended. ?? The patient has been or will be contacted. ?? The patient will be entered into a reminder system with a target due date of 1 year for her next screening exam. Electronically signed by: Vivi Cole M.D. ? ab/penrad:01/11/2021 11:45:47 ?? Personal Injury Attorney: Amarilis DUMONT (R)), [facility] letter sent: Normal Exam ?? Reading location: [facility] BI-RADS: 2 Benign Procedure Note Vivi Cole MD - 01/11/2021 - JALEN SCREENING BILATERAL DIGITAL W CAD W LIZZIE BILATERAL DIGITAL SCREENING MAMMOGRAM 3D/2D WITH CAD WITH MEDIOLATERAL OBLIQUE CRANIOCAUDAL: 01/09/2021 The study was acquired using digital technology and interpreted from soft copy. Current study was also evaluated with [employer] version 7.2. CLINICAL: New baseline. Patient has no complaints. No personal history of cancer. No family history of breast cancer. COMPARISONS: No prior exams were available for comparison. BREAST TISSUE:There are scattered fibroglandular densities in both breasts. FINDINGS: There are benign vascular calcifications in both breasts. No significant masses, calcifications, or other findings are seen in either breast. IMPRESSION: BI-RAD 2 BENIGN There is no mammographic evidence of malignancy. A 1 year screening mammogram is recommended. The patient has been or will be contacted. The patient will be entered into a reminder system with a target due date of 1 year for her next screening exam. Electronically signed by: Vivi Cole M.D. ab/penrad:01/11/2021 11:45:47 Personal Injury Attorney: Amarilis DUMONT (R)), [facility] letter sent: Normal Exam Reading location: [facility] BI-RADS: 2 Benign Gretta Johns [facility] MAMMO ORDERABLES Final Resu lt from Last 3 Months or Most Recently Relevant to Health Maintenance Insurance [employer] Care Teams Certified Medical Coding Specialist Relationship Specialty Start Date End Date Gretta Johns [address] [place], [place] [phone] PCP - General Family Medicine 01/09/21
--- OUTSIDE RECORDS SUMMARY | 2024-11-06 06:51 | XMS_ITS | Clinical Summary ---
Author Organization [facility] [place] Address [address] [place] [address] [place] [address] Care Team Providers Care Assembler Unit Name Role Phone Adalberto Mcdermott MD Primary Care Provider [phone] Allergies Active Allergy Reactions Criticality Noted Date Comments Etodolac Dizziness 07/16/2020 Ibuprofen Arrhythmia 07/16/2020 Prednisone Dizziness 07/16/2020 Topiramate Unknown 07/16/2020 Tramadol Dizziness 07/16/2020 Medications atorvastatin (LIPITOR) 20 mg tablet Take 20 mg by mouth every 24 hours. Active metFORMIN (GLUCOPHAGE) 500 mg tablet 2 times daily. Active levothyroxine 50 mcg tablet every 24 hours. Active omeprazole (PriLOSEC) 40 mg Capsule, Delayed Release(E.C.) TAKE 1 CAPSULE BY MOUTH ONCE DAILY 05/30/2020 Active lisinopriL (PRINIVIL) 10 mg tablet TAKE 1 TABLET BY MOUTH ONCE DAILY 04/20/2020 Active Active Problems No known active problems Immunizations Immunization Administration Dates Next Due (ADACEL/BOOSTRIX)(10 YR UP) TDAP VACCINE, 0.5ML, IM 07/26/2016 INFLUENZA VACCINE QUADRIVALE NT 3 YR UP PF IM 07/13/2022 INFLUENZA VACCINE QUADRIVALENT 6 MOS UP IM 07/10,07/26/2016 INFLUENZA VACCINE QUADRIVALE NT 6 MOS UP PF IM 07/12/2023,07/09/2021,07/13/2020 Social History Tobacco Use Types Packs/Day Years Used Date Smoking Tobacco: Never Smokeless Tobacco: Never Comments Unknown Sex and Gender Information Value Date Recorded Sex Assigned at Not on file 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 Gender Identity Not on file Sexual Orientation Not on file Last Filed Vital Signs Vital Sign Reading Time Taken Comments Blood Pressure 136/78 05/07/2024 7:46 AM CDT Pulse 62 07/11/2018 7:14 AM CDT Temperature - - Respiratory Rate - - Oxygen Saturation - - Inhaled Oxygen Concentration - - Weight 73 kg (161 lb) 05/07/2024 7:46 AM CDT Height 154.9 cm (5' 1 ) 05/07/2024 7:46 AM CDT Body Mass Index 30.42 05/07/2024 7:46 AM CDT Plan of Treatment Health Maintenance Due Date Last Done Comments DIABETES ANNUAL FOOT EXAM 1977 DIABETES ANNUAL RETINAL EXAM 1977 DIABETES MICROALBUMIN ANNUAL SCREEN 1977 PNEUMOCOCCAL VACCINE 65+ YEA RS (1 of 2 - PCV) 1978 COLORECTAL SCREENING 2004 Colorectal Cancer Screening 2004 FIT-DNA Q 3 years 2004 FIT/FOBT Q 1 year 2004 Flex Sig/CT Colonography Q 5 years 2004 ZOSTER VACCINE (1 of 2) 2009 BREAST CANCER SCREENING 01/09/2022 01/09/2021 INFLUENZA VACCINE (#1) 2024 3, 07/13/2022, 07/09/2021, Additional history exists DIABETES HBA1C Q 6 MONTHS 06/09/2024 12/08/2023 OSTEOPOROSIS SCREENING 2024 LDL CHOLESTEROL ANNUAL 05/07/2025 4, 01/10/2023, 05/27/2019, Additional history exists DTAP/TDAP/TD VACCINES (2 - T d or Tdap) 07/26/2026 07/26/2016 RSV VACCINE (60+ or ) (1 - 1-dose 75+ series) 2034 Procedures Procedure Name Priority Date/Time Associated Diagnosis Comments LIPID PANEL Routine 05/07/2024 7:46 AM CDT Screening for condition from Last 3 Months or Most Recently Relevant to Health Maintenance Results * (ABNORMAL) LIPID PANEL (05/07/2024 7:46 AM CDT) CHOLESTEROL 227(H) <200 mg/dL [facility] HDL 37(L) > OR = 50 mg/dL [facility] TRIGLYCERIDE 286(H) <150 mg/dL [facility] Comment: If a non-fasting specimen was collected, consider repeat triglyceride testing on a fasting specimen if clinically indicated. Sarthak et al. J. of Clin. Lipidol. 2015;9:129-169. LDL CALCULATED 143(H) mg/dL (calc) [facility] Comment: Reference range: <100 Desirable range <100 mg/dL for primary prevention; ?? <70 mg/dL for patients with CHD or diabetic patients with > or = 2 CHD risk factors. LDL-C is now calculated using the Raymundo calculation, which is a validated novel method providing better accuracy than the Friedewald equation in the estimation of LDL-C. Christian SS et al. GISSELLE. 2013;310(19): 0552-9131 (http://education.TheOfficialBoard/faq/ORS668) CHOL/HDL RATIO 6.1(H) <5.0 (calc) [facility] NON-HDL CHOLESTEROL 190(H) <130 mg/dL (calc) [facility] Comment: For patients with diabetes plus 1 major ASCVD risk factor, treating to a non-HDL-C goal of <100 mg/dL (LDL-C of <70 mg/dL) is considered a therapeutic option. Test Performed at: [place] [address] [address] [place] ??[id number] Blake Arias Blood 05/07/2024 7:46 AM CDT 05/07/2024 8:54 PM CDT Rosio Durán [facility] CHEMISTRY ORDERABLES Final Result [facility] [phone] [place] [address] [place] [address] from Last 3 Months or Most Recently Relevant to Health Maintenance Insurance * Guarantor: [employer]) Account Type Relation to Patient Date of Phone Billing Address Corporate Employer ATTN: TONEY GRANT [address] [address] [place] [id number] * Guarantor: [employer] Account Type Relation to Patient Date of Phone Billing Address Corporate Employer ATTN: TONEY GRANT [address] [address] Care Teams Assembler Unit Relationship Specialty Start Date End Date Adalberto Mcdermott MD [address] [place] [address] PCP - General Family Practice 01/10/23
== END 2024-11-06 06:49 | disposition home or self-care (01) ==
PROVIDERS: PCP Family Medicine
DX: E07.89 Other specified disorders of thyroid (principal)
CPT/HCPCS: 76536

== ENCOUNTER 2025-01-16 13:13 | Observation (INO) | payer OTHER, SELFPAY ==
[2025-01-16] VITALS (30 sets, daily range): BP systolic 134–153; BP diastolic 68–86; PULSE 64–81; RESP 13–26; TEMP 36.4–36.7; O2SAT 95–100
--- NOTE | ~2025-01-16 | CT_ITS ---
EXAMINATION: CT brain wo con DATE: 01/16/2025 13:44 INDICATION: Sudden onset dizziness TECHNIQUE: Computed tomography (CT) of the head was performed without intravenous contrast. Sagittal and coronal reconstructions were performed. The mA was adjusted according to patient size. Iterative reconstruction technique was employed. The dose-length product was 605.33 mGy-cm. COMPARISON: head CT dated 08/22/24 FINDINGS: Unchanged small infarct in the left basal ganglia involving the caudate and lentiform nuclei and inte rvening anterior limb of the internal capsule. No acute intracranial hemorrhage, acute infarction or abnormal extra axial fluid collection. Ventricles are normal and symmetric. No mass/mass effect. Intr acranial calcified cerebral atherosclerosis is noted. The orbits, paranasal sinuses and mastoid air c ells are normal. IMPRESSION: 1. Unchanged old left basal ganglia infarct. No acute intracranial process. Reviewed, dictated and finalized at location B.
--- NOTE | ~2025-01-16 | CT_ITS ---
CTA brain carotid Ordering provider: Sejal Ford MD History: . dizziness, tinnitus . Comparison: January 16, 2025 Technique: CT angiogram head and neck was performed following timed intravenous injection of contrast . Thin slice axial images and reformatted coronal images were obtained. Three dimensional reformatted images of the brain were also obtained using a [employer] workstation. Radiation reduction technique ut ilized.The dose-length product was 1 534.69 mGy-cm. 100 mL Omnipaque 350 was given IV. FINDINGS: HEAD: --ANTERIOR AND MIDDLE CEREBRAL ARTERIES AND BRANCHES: Normal caliber and contour. --INTERNAL CAROTID ARTERIES: Mild atheromatous disease but no significant stenosis. No occlusion. --BASILAR ARTERY AND BRANCHES: Normal caliber and contour. No atheromatous disease. --POSTERIOR CEREBRAL ARTERIES: Normal caliber and contour --POSTERIOR COMMUNICATING ARTERIES: Not visualized which is probably related to congenital absence or small size. --ANEURYSM: None visualized. --BRAIN: Old infarct in the left caudate head. Otherwise, normal --BONES AND SUPERFICIAL SOFT TISSUES: Normal --PARANASAL SINUSES AND MASTOIDS: Well aerated. NECK: --RIGHT CERVICAL CAROTID SYSTEM: Mild atheromatous disease of the carotid bulb and proximal internal carotid artery without significant stenosis. Percent stenosis per NASCET criteria is 0%. No carotid dissection. Otherwise, no significant atheromatous disease or stenosis of the cervical carotid system . --LEFT CERVICAL CAROTID SYSTEM: Mild atheromatous disease of the carotid bulb and proximal internal c arotid artery without significant stenosis. Percent stenosis per NASCET criteria is 0%. No carotid d issection. Otherwise, no significant atheromatous disease or stenosis of the cervical carotid system. --VERTEBRAL ARTERIES: Normal caliber and contour. --VISUALIZED AORTIC ARCH AND BRANCHING VESSELS: Mild atheromatous disease but no significant stenosis . Dependent atelectatic changes. --SOFT TISSUES: Nodule in the right lobe of the thyroid. Ultrasound evaluation advised. --CERVICAL SPINE: Age appropriate degenerative changes. IMPRESSION: 1. Normal CTA head 2. CTA of the neck. Percent stenosis per NASCET criteria is 0%. Reviewed, dictated and finalized at location A.
--- NOTE | ~2025-01-16 | XR_ITS ---
XR chest 1V portable Ordering provider: Titi Luevano MD History: 64 years Female with . chest pain . Comparison: January 16, 2025 FINDINGS: MEDIASTINUM: The cardiac silhouette is not enlarged. LUNGS: No infiltrates, effusions or pneumothorax. Prominent bronchovascular markings in the lower lob es more on the left side which may indicate atelectatic changes. OTHER: No free air under the diaphragm. IMPRESSION: Prominent bronchovascular markings with possible atelectatic changes in the left lung base. Follow-up advised. Reviewed, dictated and finalized at location A. IMPRESSION: Prominent bronchovascular markings with possible atelectatic changes in the lef t lung base. Follow-up advised.
--- NOTE | ~2025-01-16 | XR_ITS ---
EXAM/PROCEDURE: XR chest 1V - 01/16/2025 13:40 CDT HISTORY: 64 years old Female with dizziness TECHNIQUE: AP view(s) of the chest. COMPARISON: None available. FINDINGS: LUNGS/ PLEURA: No focal consolidation. No appreciable pneumothorax or large pleural effusion. HEART/ MEDIASTINUM: Heart appears normal in size. BONES: No acute osseous abnormality. OTHER: Visualized upper abdomen is unremarkable. IMPRESSION: No acute process. Reviewed, dictated and finalized at location A. IMPRESSION: No acute process.
--- NOTE | ~2025-01-16 | MR_ITS ---
EXAMINATION: MR brain/brain stem wo/w con DATE: 01/17/2025 11:42 INDICATION: Dizziness TECHNIQUE: Magnetic resonance imaging (MRI) of the brain and brainstem was performed without and with 14 mL ProHance intravenous contrast. Sequences included sagittal and axial T1-weighted SE, axial dif fusion-weighted FS SE, axial 3D SWAN, axial T2-weighted FLAIR, and axial T2-weighted FSE. Postcontras t axial and coronal T1-weighted SE was obtained. Apparent diffusion coefficient (ADC) maps were creat ed. COMPARISON: Head CT and CT angiogram dated 01/16/2025 FINDINGS: Small old lacunar infarct at the left basal ganglia extending between the anterior horn of the caudat e nucleus across the anterior limb of the internal capsule and into the lentiform nucleus. There are no areas of restricted diffusion to suggest acute infarction. No intracranial hemorrhage or abnormal intracranial mass lesion. There are no intraparenchymal signal abnormalities seen on the other pulse sequences. The ventricles are symmetric and normal in size. There are no abnormal extra-axial fluid c ollections. Flow voids are seen in the cerebral arteries on the T2-weighted sequences consistent with their expected patency. Mild mucosal thickening bilateral ethmoid sinuses. Visualized orbits and sof t tissues are unremarkable. There are no areas of abnormal enhancement on the post contrast images. IMPRESSION: 1. Left basal ganglia lacunar infarct. No acute intracranial process or abnormally enhancing brain le sions. Reviewed, dictated and finalized at location B. IMPRESSION: 1. Left basal ganglia lacunar infarct. No acute intracranial process or abnorma lly enhancing brain lesions.
--- NOTE | 2025-01-16 13:13 | ECG_ITS ---
Test Date: 2025-01-16 13:19:29 Measurements Intervals [place] Rate: 77 P: 49 KS: 173 QRS: 9 QRSD: 104 T: 30 QT: 393 QTc: 446 Interpretive Statements SINUS RHYTHM BASELINE ARTIFACT- I, II, AVR NORMAL ECG Compared to ECG 08/22/2024 16:41:42 No significant changes Electronically Signed On 01-16-2025 13:49:36 CDT by Roberto Hammer D.O.
[2025-01-16 14:17] LABS: Basophils Percent Auto 0.6 % (0.2-1.2); Eosinophils Absolute Auto 0.3 K/mm3 (0-0.3); Eosinophils Percent Auto 5.5 % (0-4.4); Hematocrit 35.4 % (37.0-47.0); Hemoglobin 11.7 g/dL (12.0-15.0); Immature Granulocyte Absolute 0.02 K/mm3 (0.00-0.031); Immature Granulocyte Percent A 0.4 % (0-0.5); Lymphocytes Absolute Auto 1.38 K/mm3 (0.9-3.2); Lymphocytes Percent Auto 27.9 % (18.3-44.2); Mean Corpuscular HGB Conc 33.1 g/dl (32-36); Mean Corpuscular Hemoglobin 29.7 pg (26-34); Mean Corpuscular Volume 89.8 fl (80-100); Mean Platelet Volume 8.3 fl (7.4-10.4); Monocytes Absolute Auto 0.3 K/mm3 (0.1-0.6); Monocytes Percent Auto 5.1 % (2.6-8.5); Neutrophils Percent Auto 60.5 % (45.5-73.1); Platelet Count Result 249 k/mm3 (150-375); Red Blood Count 3.94 M/mm3 (4.2-5.4); Red Cell Distribution Width 13.3 % (11.5-14.5)
[2025-01-16 14:34] LABS: Alanine Aminotransferase 17 U/L (6-35); Albumin Level 4.3 g/dL (3.5-5.1); Alkaline Phosphatase 85 U/L (38-126); Anion Gap 7 mmol/L (4-12); Aspartate Amino Transferase 24 U/L (14-36); Bilirubin,Total 0.4 mg/dL (0.2-1.3); Blood Urea Nitrogen 6 mg/dL (7-17); Calcium 9.1 mg/dL (8.4-10.2); Carbon Dioxide 30 mmol/L (22-30); Chloride 103 mmol/L (98-107); Estimated CRCL calculation 62 ml/min; Estimated Glomerular Filt Rate > 60; Glucose 156 mg/dL (65-110); Potassium 3.7 mmol/L (3.4-5.0); Sodium 140 mmol/L (137-145)
--- NOTE | 2025-01-16 15:22 | ED.DIZZY ---
HPI - Dizziness General Chief Complaint: Dizziness Stated Complaint: dizzy Time Seen by Provider: 01/16/25 14:46 Source: patient Limitations: no limitations History of Present Illness HPI Narrative: Patient presents report of dizziness that started approximately an hour prior to arrival. Last known well as approximately 12 noon. Patient states she feels like something is pushing her head down neck a pressure sensation. She denies any unilateral symptoms initially although later then states that the left side of her face feels weird. She notes that she had blurred vision this since resolved. Symptoms occurred while she was at work. Point of care glucose by EMS was 118 mg/dL. Patient states she had a stroke 4-5 years ago but without any residual deficits. In general she states that she feels off today, like a heaviness to her head. She notes that she has irritation her spinning sensation only when she closes her eyes. She is on 80 mg of aspirin and statin. She denies any symptoms been preceded by turning head or being preceded by any position changes of her body she just staring forward. She is having bilateral tinnitus but denies any ear pain or hearing changes. She states this has happened before. Related Data Home Medications ?Medication ?Instructions ?Recorded ?Confirmed ?Last Taken ?Type aspirin 81 mg tablet,delayed 81 mg PO BID 01/16/25 01/16/25 Unknown History release (Adult Low Dose Aspirin) Allergies Allergy/AdvReac Type Severity Reaction Status Date / Time etodolac Allergy Severe Numbness Verified 01/16/25 13:20 ibuprofen Allergy Unknown Palpitation Verified 01/16/25 13:20 s poison janet extract Allergy Unknown Unknown Verified 01/16/25 13:20 prednisone Allergy Unknown Unknown Verified 01/16/25 13:20 tramadol Allergy Unknown Unknown Verified 01/16/25 13:20 topiramate AdvReac Unknown Elevated Verified 01/16/25 13:20 glucose Lodine Allergy Intermediate Unresponsiv Uncoded 01/16/25 18:49 e PMFSH Past Medical History Medical History BMI 27.0-27.9,adult History of recent hospitalization BMI 26.0-26.9,adult Abnormal echocardiogram Newly recognized murmur CVA (cerebral vascular accident) BMI 29.0-29.9,adult Hyperlipidemia Field's palsy Otitis media BMI 30.0-30.9,adult BMI 28.0-28.9,adult BMI 29.0-29.9,adult Acute cerebral infarction Hypothyroidism (acquired) Uncontrolled type 2 diabetes mellitus with hyperglycemia Surgical History Surgical History History of tonsillectomy H/O left knee surgery S/P foot surgery, left Family History Family History Mother Diabetes mellitus Cerebrovascular accident Family history of pancreatic cancer Family history of thyroid disease Father Hypertension Family history of elevated blood lipids Diabetes mellitus Aphasia Parkinson's disease Sibling Diabetes mellitus TIA (transient ischemic attack) Social History Social History Social History: The patient works at a [employer]. The patient lives with her father and she has 3 sons. The patient is a lifelong nonsmoker. She does not use any marijuana, alcohol or illicit drugs. Patient desires to be a full code. 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 Gender identity (if verbalized by the patient): Female Spiritual care concerns: No Exam Narrative: GENERAL: Well-appearing, well-nourished, and in no acute distress. HEAD: Normocephalic, atraumatic. EYES: Non injected, non icteric. Peripheral johns intact. Extraocular movements intact without vertical nystagmus although there is 3 beat right beating nystagmus that fatigues , more appreciable in the right eye ENT: Nares clear, no rhinorrhea or epistaxis. Bilateral TMs clear, easily visualized, no significant cerumen, FB, erythema, effusion, vesicles. NECK: Supple. CHEST: Speaking in full sentences. No respiratory distress. HEART: Regular rate and rhythm. . ABDOMEN: Soft, nondistended. EXTREMITIES: Normal range of motion. No lower extremity edema. SKIN: Warm, dry, no rash. NEURO: No focal deficits. Alert and oriented x3. Follows commands. No gaze palsy. No motor drift x4. Sensation intact throughout. No extinction. Speaks clearly without aphasia or dysarthria. Answers questions appropriately. PSYCH: Normal mood and affect. Course Vital Signs Vital signs: Vital Signs Temperature 98.0 F 01/16/25 13:14 Pulse Rate 78 01/16/25 13:14 Respiratory Rate 18 01/16/25 13:14 Blood Pressure 153/79 H 01/16/25 13:14 Pulse Oximetry 97 01/16/25 13:14 Oxygen Delivery Room Air 01/16/25 13:14 Temperature 97.8 F 01/17/25 05:25 Pulse Rate 63 01/17/25 05:25 Respiratory Rate 17 01/17/25 05:25 Blood Pressure 148/65 H 01/17/25 05:25 Pulse Oximetry 98 01/17/25 05:25 Oxygen Delivery Room Air 01/16/25 13:14 MDM - Dizziness MDM Narrative Medical decision making narrative: Patient presents with acute onset dizziness. In the emergency department she is afebrile vital signs notable for mild hypertension. Last known well is 11:55. The patient is protecting their airway which is patent. An IV is established by nursing staff blood work sent to the lab for evaluation. An EKG will be performed. Accu-Chek was 118mg/dL by EMS. NIHSS was evaluated per below. The patient was transported immediately to CT scan. NIHSS Level Of consciousness: 0 Month and age:0 Follows commands:0 Gaze palsy:0 Visual johns:0 Facial palsy:0 Left arm motor drift:0 Right arm motor drift:0 Left leg motor drift:0 Right leg motor drift:0 Limb ataxia: 0 Sensation:0 Aphasia:0 Dysarthria: 0 Extinction: 0 Total: 0 DIFFERENTIAL DIAGNOSES Considered Stroke (CVA / TIA) mimics including but not limited to: migraines, hypoglycemia, seizures/Cecilio's paralysis, sepsis/severe infections in patients with prior strokes (e.g. recrudescence), syncope, brain masses, transient global amnesia, panic attack/hyperventilation, and conversion disorders. In regards to Vertigo DIFFERENTIAL DIAGNOSES Central causes: infection ( encephalitis, meningitis, cerebritis); vertebrobasilar arterial insufficiency, subclavian steal syndrome, cerebellar or brainstem hemorrhage or infarction, vertebrobasilar migraine, trauma ( temporal bone fracture, post concussive syndrome); tumor (brainstem or cerebellum); MS; temporal lobe epilepsy Peripheral causes: Foreign body, cerumen impaction, acute otitis media, labyrinthitis, benign paroxysmal positional vertigo, Meniere's disease, vestibular neuronitis, perilymphatic fistula, trauma, motion sickness, acoustic neuroma, ototoxic medications CT shows: No acute process. CTA was initially ordered however patient had an iodine allergy listed in EMR. CTA canceled due to patient listing an iodine allergy in which she passed out. Although symptoms do not sound like BPPV, will start with meclizine while await further workup. Meclizine given. Patient reports no change. Benzodiazepines were given a 2nd line with no change. For 3rd line will give promethazine to suppress the vestibular end-organ receptors and inhibit at the activation of the vagal response Patient has comorbidities that complexity management. Namely, history of a stroke that left no residual deficits. Chart review performed which demonstrates: Patient has received CT A imaging before. Management is discussed with electronic intelligence officer neurologist Dr Ferguson who recommends MRI and, if unable to obtain CTA, MRA and carotid Doppler study. Of note, no neurology coverage tomorrow but there will be on Monday. I did discuss with patient regarding the fact that she has received CT imaging with contrast before and she notes that she has an allergy to LODINE, not IODINE. This change is made in the EMR and CTA is ordered. Labs : Normocytic anemia, intermittently seen previously. Hyperglycemia without anion gap acidosis. Patient continues to feel dizzy after medications x3. Because CTA negative, discusse with neurologist Dr Ferguson again who concurs that standard MRI imaging w/ and w/o contrast is appropriate. Patient has no contraindications to undergoing MRI. Discussed with electronic intelligence officer hospitalist and accepted for admission. No arrhythmia or focal neuro deficits so med surg with telemetry rather than IMU. Lab Data Attestation: I reviewed the patient's lab results. 01/16/25 14:08 01/16/25 14:07 Labs: Lab Results 01/16/25 01/16/25 01/16/25 Range/Units 14:07 14:08 17:56 WBC 5.0 (4.5-10.0) K/mm3 RBC 3.94 L (4.2-5.4) M/mm3 Hgb 11.7 L (12.0-15.0) g/dL Hct 35.4 L (37.0-47.0) % MCV 89.8 (80-100) fl MCH 29.7 (26-34) pg MCHC 33.1 (32-36) g/dl RDW 13.3 (11.5-14.5) % Plt Count 249 (150-375) k/mm3 MPV 8.3 (7.4-10.4) fl Immature Gran % (Auto) 0.4 (0-0.5) % Neut % (Auto) 60.5 (45.5-73.1) % Lymph % (Auto) 27.9 (18.3-44.2) % [place] % (Auto) 5.1 (2.6-8.5) % Eos % (Auto) 5.5 H (0-4.4) % Baso % (Auto) 0.6 (0.2-1.2) % Lymph # (Auto) 1.38 (0.9-3.2) K/mm3 [place]gs # (Auto) 0.3 (0.1-0.6) K/mm3 Eos # (Auto) 0.3 (0-0.3) K/mm3 Baso # (Auto) 0.0 (0.0-0.1) K/mm3 Abs Immat Gran (auto) 0.02 (0.00-0.031) K/mm3 Absolute Neuts (auto) 3.0 (1.3-6.7) K/mm3 Absolute Nucleated RBC 0.000 (0.0-0.012) K/mm3 Nucleated RBC % 0.0 (0.0-0.2) % Sodium 140 (137-145) mmol/L Potassium 3.7 (3.4-5.0) mmol/L Chloride 103 (98-107) mmol/L Carbon Dioxide 30 (22-30) mmol/L Anion Gap 7 (4-12) mmol/L BUN 6 L (7-17) mg/dL Creatinine 0.71 (0.7-1.0) mg/dL Estim Creat Clear Calc 62 ml/min Estimated GFR > 60 (59 - ) Glucose 156 H (65-110) mg/dL Calcium 9.1 (8.4-10.2) mg/dL Total Bilirubin 0.4 (0.2-1.3) mg/dL AST 24 (14-36) U/L ALT 17 (6-35) U/L Alkaline Phosphatase 85 (38-126) U/L Total Protein 8.0 (6.3-8.2) g/dL Albumin 4.3 (3.5-5.1) g/dL Urine Color Yellow (Yellow) Urine Appearance Clear (Clear) Urine pH 5.5 (5.0-9.0) Ur Specific [place] 1.006 (1.001-1.035) Urine Protein Negative (Negative) mg/dL Urine Glucose (UA) Negative (Negative) mg/dL Urine Ketones Negative (Negative) mg/dL Ur Blood (Man) Negative (Negative) Urine Nitrate Negative (Negative) Urine Bilirubin Negative (Negative) Urine Urobilinogen 0.2 (<2.0) mg/dL Leukocyte Esterase Rfl 1+ H (Negative) JANUSZ/UL Urine RBC 0-2 (0-2) /hpf Urine WBC 6-10 H (0-3) /hpf Ur Squamous Epith Cells Occasional (Few) /hpf Urine Bacteria Rare /hpf Urine Casts 0-2 Imaging Data Radiologist's impression: Impressions Head CT 01/16/25 13:49 IMPRESSION: 1. Unchanged old left basal ganglia infarct. No acute intracranial process. Chest X-Ray 01/16/25 13:56 IMPRESSION: No acute process. Head/Neck CTA 01/16/25 21:27 IMPRESSION: 1. Normal CTA head 2. CTA of the neck. Percent stenosis per NASCET criteria is 0%. ECG Data EKG #1: Attestation: I personally reviewed and interpreted this ECG as follows: ECG completion date: 01/16/25 ECG completion time: 13:19 Interpretation: Normal sinus rhythm at a rate of 77 beats per minute. PA interval 173. QRS 104. QT/QTC 393/425. Good R-wave progression across the precordial leads. T-wave flattening in 3 but upright in normal in contiguous inferior leads 2 and AVF. No other T-wave inversions. Normal ECG Discharge Plan Discharge Clinical Impression: Dizziness, Hyperglycemia due to diabetes mellitus, Normocytic anemia, Bilateral tinnitus Patient Disposition: Still a Patient Condition: Stable
[2025-01-16] MEDS: MECLIZINE HCL 25 MG TABLET PO (15:49)
--- OUTSIDE RECORDS SUMMARY | 2025-01-16 16:14 | XMS_ITS | Encounter Summary ---
Author Organization [facility] Address [address] [place] [address] Care Team Providers Care Rolling Machine Operator Name Role Phone Adalberto Mcdermott MD Primary Care Provider Encounter Details Date Type Department Care Team (Late st Contact Info) Description 12/17/2024 Results Follow-Up [facility] [employer] [facility] [address] [place] [address] Mary Lou Delcid MD [address] [place] [address] COMPREHENSIVE METABOLIC PANEL, TSH, LIPID PANEL, CBC WITH DIFFERENTIAL Social History Tobacco Use Types Packs/Day Years Used Date Smoking Tobacco: Never Smokeless Tobacco: Never Comments No Sex and Gender Information Value Date Recorded Sex Assigned at Not on file Legal 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 Delcid. Patient verbalized understanding with no further questions at this time. * Result Encounter Note - Ananya Carvalho - 12/17/2024 1:18 PM CDT Lvm for pt call our office back regarding labs documented in this encounter Plan of Treatment Not on file documented as of this encounter Visit Diagnoses Not on filedocumented in this encounter Additional Health Concerns Assessment Noted Time PHQ-9 Depression Total Score: 4 07/11/20 18 7:00 AM CDT documented as of this encounter Care Teams Rolling Machine Operator Relationship Specialty Start Date End Date Adalberto Mcdermott MD [address] [place] [address] PCP - General Family Practice 01/10/23 documented as of this encounter
--- OUTSIDE RECORDS SUMMARY | 2025-01-16 16:14 | XMS_ITS | Clinical Summary ---
Author Organization [facility] Address [address] [place] [address] Phone Care Team Providers Care Events And Promotions Assistant Name Role Phone Gretta Johns Primary Care Provider [phone] Allergies Active Allergy Reactions Criticality Noted Date [...] 67 12/21/2023 3:00 PM CDT Temperature 35.9 C (96.6 F) 12/21/2023 3:00 PM CDT Respiratory Rate 14 12/21/2023 3:00 PM CDT [...] Zoster Immunization (1 of 2) 2009 Mammogram 01/09/2022 01/09/2021, 01/09/2021 Influenza Immunization (#1) 2024 10/0 01/2023, 07/13/2022, 07/09/2021, Additional history exists SARS-COV-2 Immunization ( season) 2024 02/26/2021, 02/02/2021 Respiratory Syncytial Virus [...] SCREENING BILATERAL DIGITAL W CAD W LIZZIE (01/09/2021 8:50 AM CDT) Anatomical Region Laterality Modality breast Bilateral Mammography 01/09/2021 8:45 AM CDT Narrative 01/11/2021 12:47 PM CDT - JALEN SCREENING BILATERAL DIGITAL W CAD W LIZZIE BILATERAL DIGITAL SCREENING MAMMOGRAM 3D/2D WITH CAD WITH MEDIOLATERAL OBLIQUE CRANIOCAUDAL: 01/09/2021 The study was acquired using digital technology and interpreted from soft copy. Current study was also evaluated with ICAD version 7.2. CLINICAL: New baseline. Patient has [...] next screening exam. Electronically signed by: Vivi patel/mignon:01/11/2021 11:45:47 Template Storage Clerk: Amarilis SEBASTIAN(R)(M), [facility] letter sent: Normal Exam Reading location: [facility] BI-RADS: 2 Benign Procedure Note Vivi Cole MD - 01/11/2021 - JALEN SCREENING BILATERAL DIGITAL W CAD W LIZZIE BILATERAL DIGITAL SCREENING MAMMOGRAM 3D/2D WITH CAD WITH MEDIOLATERAL OBLIQUE CRANIOCAUDAL: 01/09/2021 The study was acquired using digital technology and interpreted from soft copy. Current study was also evaluated with ICAD version 7.2. CLINICAL: New baseline. Patient has [...] exam. Electronically signed by: Vivi Cole M.D. ab/penanh:01/11/2021 11:45:47 Template Storage Clerk: Amarilis SEBASTIAN (R)(Finn), [facility] letter sent: Normal Exam Reading location: [facility] BI-RADS: 2 Benign Gretta Johns [facility] MAMMO ORDERABLES Final Resu lt from Last 3 Months or Most Recently Relevant to Health Maintenance Insurance [facility] Care Teams Events And Promotions Assistant Relationship Specialty Start Date End Date Gretta Johns [address] [place] [id number] PCP - General Family Medicine 01/09/21
--- OUTSIDE RECORDS SUMMARY | 2025-01-16 16:14 | XMS_ITS | Clinical Summary ---
Author Organization [facility] [employer] [place] Address [facility] [address] Care Team Providers Care Ui Developer [employer] Name Role Phone Adalberto Mcdermott MD Primary Care Provider [phone] Allergies Active Allergy Reactions Criticality Noted Date Comments Etodolac Dizziness 07/16/2020 Ibuprofen Arrhythmia 07/16/2020 Prednisone Dizziness 07/16/2020 Topiramate Unknown 07/16/2020 Tramadol Dizziness 07/16/2020 Medications omeprazole (PriLOSEC) 40 mg Capsule, Delayed Release(E.C.) TAKE 1 CAPSULE BY MOUTH ONCE DAILY 0 Active lisinopriL (PRINIVIL) 10 mg tablet TAKE 1 TABLET BY MOUTH ONCE DAILY 0 Active dulaglutide (TRULICITY SUBCUT) Inject 0.75 mg by subcutaneous injection every 7 days. Active atorvastatin (LIPITOR) 80 mg tablet Take 80 mg by mouth daily. Active levothyroxine 137 mcg tablet Take 137 mcg by mouth daily. Active metFORMIN (GLUCOPHAGE XR) 500 mg Extended Release 24 hour tablet Take 1,000 mg by mouth daily. Active Active Problems Problem Noted Date Diagnosed Date Diabetes mellitus 12/17/2024 Essential hypertension 12/17/2024 Gastroesophageal reflux disease without esophagi tis 12/17/2024 Hyperlipidemia 12/17/2024 Hypothyroidism 12/17/2024 Encounters Date Type Department Care Team Description 12/24/2024 External Device Data STL ABSTRACTION Provider, Abstract 12/17/2024 Results Follow-Up [facility] at [place] [address] [place] [address] Mary Lou Delcid MD COMPREHENSIVE METABOLIC PANEL, TSH, LIPID PANEL, CBC WITH DIFFERENTIAL 12/16/2024 9:40 AM CDT Office Visit [facility] at [employer] [place] [address] [place] [address] Screening for condition (Primary Dx) 12/03/2024 1:00 PM TEXTILE BROKER Office Visit [facility] at [employer] [place] [address] [place] [address] Sandie Pate, DNP Right hand pain (Primary Dx); Tenosynovitis of hand from Last 3 Months Immunizations Immunization Administration Dates Next Due (ADACEL/BOOSTRIX)(10 [...] on file Legal Sex Female 3:42 AM TEXTILE BROKER Gender Identity Not on file Sexual Orientation Not on file Last Filed Vital Signs Vital Sign Reading Time Taken Comments Blood Pressure 110/68 12/16/2024 9:31 AM CDT Pulse 82 12/03/2024 12:55 PM TEXTILE BROKER Temperature 37.1 C (98.8 F) 12/03/2024 12:55 PM TEXTILE BROKER Respiratory Rate 16 12/03/2024 12:55 PM TEXTILE BROKER Oxygen Saturation 98% 12/03/2024 12:55 PM TEXTILE BROKER Inhaled Oxygen Concentration - - Weight 73 kg (161 lb) 12/16/2024 9:31 AM CDT Height 154.9 cm (5' 1 ) 12/16/2024 9:31 AM CDT Body Mass Index 30.42 12/16/2024 9:31 AM CDT Plan of Treatment Health Maintenance Due Date Last Done Comments DIABETES ANNUAL FOOT EXAM 1977 DIABETES ANNUAL RETINAL EXAM 1977 DIABETES MICROALBUMIN ANNUAL SCREEN 1977 PNEUMOCOCCAL VACCINE 50+ YEA RS (1 of 2 - PCV) 1978 COLORECTAL SCREENING 2004 Colorectal Cancer Screening 2004 FIT-DNA Q 3 years 2004 FIT/FOBT Q 1 year 2004 Flex Sig/CT Colonography Q 5 years 2004 ZOSTER VACCINE (1 of 2) 2009 BREAST CANCER SCREENING 01/09/2022 01/09/2021, 01/09 INFLUENZA VACCINE (#1) 2024 3, 07/13/2022, 07/09/2021, Additional history exists DIABETES HBA1C Q 6 MONTHS 06/09/2024 12/08/2023 OSTEOPOROSIS SCREENING 2024 Preventative Visit- Commercial 10/09/2024 LDL CHOLESTEROL ANNUAL 12/16/2025 5, 05/07/2024, 01/10/2023, Additional history exists DTAP/TDAP/TD VACCINES (2 - T d or Tdap) 07/26/2026 07/26/2016 RSV VACCINE (60+ or ) (1 - 1-dose 75+ series) 2034 Procedures Procedure Name Priority Date/Time Associated Diagnosis Comments CBC WITH DIFFERENTIAL Routine 12/16/2024 9:27 AM CDT Screening for condition LIPID PANEL Routine 12/16/2024 9:27 AM CDT Screening for condition TSH Routine 12/16/2024 9:27 AM CDT Screening for condition COMPREHENSIVE METABOLIC PANEL Routine 12/16/2024 9:27 AM CDT Screening for condition from Last 3 Months Results * (ABNORMAL) CBC WITH DIFFERENTIAL (12/16/2024 9:27 AM CDT) WBC 5.3 3.8 - 10.8 Thousand/u L [facility] RBC 4.12 3.80 - 5.10 Million/uL [facility] HEMOGLOBIN 12.5 11.7 - 15.5 g/dL [facility] HEMATOCRIT 37.9 35.0 - 45.0 % [facility] MCV 92.0 80.0 - 100.0 fL [facility] MCH 30.3 27.0 - 33.0 pg [facility] MCHC 33.0 32.0 - 36.0 g/dL [facility] Comment: For adults, a slight decrease in the calculated MCHC value (in the range of 30 to 32 g/dL) is most likely not clinically significant; however, it should be interpreted with caution in correlation with other red cell parameters and the patient's clinical condition. RDW 13.3 11.0 - 15.0 % [facility] PLATELETS 243 140 - 400 Thousand/u L [facility] MPV 9.1 7.5 - 12.5 fL [facility] NEUTROPHIL ABSOLUTE 3,127 1,500 - 7,800 cells/uL [facility] LYMPHOCYTE ABSOLUTE 1,738 850 - 3,900 cells/uL [facility] MONOCYTE ABSOLUTE 191(L) 200 - 950 cells/uL [facility] EOSINOPHIL ABSOLUTE 212 15 - 500 cells/uL [facility] BASOPHILS ABSOLUTE 32 0 - 200 cells/uL [facility] NEUTROPHIL 59 % [facility] LYMPHOCYTES 32.8 % [facility] MONOCYTE 3.6 % [facility] EOSINOPHILS 4.0 % [facility] BASOPHILS 0.6 % [facility] Comment: Test Performed at: [facility] [address] [place] [id number] Blake Arias MD Blood 12/16/2024 9:27 AM CDT 12/17/2024 5:02 AM CDT us Mary Lou Delcid MD HEMATOLOGY ORDERABLES Final Re sult [facility] [phone] [facility] [address] * TSH (12/16/2024 9:27 AM CDT) TSH 4.33 0.40 - 4.50 mIU/L [facility] Comment: Test Performed at: [facility] [address] [place] [address] [place] [address] Blake Arias MD Blood 12/16/2024 9:27 AM CDT 12/17/2024 5:02 AM CDT us Mary Lou Delcid MD CHEMISTRY ORDERABLES Final Res ult [facility] [phone] [facility] [address] * (ABNORMAL) LIPID PANEL (12/16/2024 9:27 AM CDT) CHOLESTEROL 183 <200 mg/dL [facility] HDL 43(L) > OR = 50 mg/dL [facility] TRIGLYCERIDE 127 <150 mg/dL [facility] LDL CALCULATED 116(H) mg/dL (calc) [facility] Comment: Reference range: <100 Desirable range <100 mg/dL for primary prevention; <70 mg/dL for patients with CHD or diabetic patients with > or = 2 CHD risk factors. LDL-C is now calculated using the Christian-Branham calculation, which is a validated novel method providing better accuracy than the Friedewald equation in the estimation of LDL-C. Christian SS et al. GISSELLE. 2013;310(19): 3795-0768 (http://education.Websand.BioAxone Therapeutic/faq/QGM327) CHOL/HDL RATIO 4.3 <5.0 (calc) [facility] NON-HDL CHOLESTEROL 140(H) <130 mg/dL (calc) [facility] Comment: For patients with diabetes plus 1 major ASCVD risk factor, treating to a non-HDL-C goal of <100 mg/dL (LDL-C of <70 mg/dL) is considered a therapeutic option. Test [facility]: [facility] [place] [address] Blake Arias MD Blood 12/16/2024 9:27 AM CDT 12/17/2024 5:02 AM CDT us Mary Lou Delcid MD CHEMISTRY ORDERABLES Final Res ult [facility] [phone] [facility] [address] [place] [phone] * (ABNORMAL) COMPREHENSIVE METABOLIC PANEL (12/16/2024 9:27 AM CDT) GLUCOSE 138(H) 65 - 99 mg/dL [facility] Comment: Fasting reference interval For someone without known diabetes, a glucose value >125 mg/dL indicates that they may have diabetes and this should be confirmed with a follow-up test. BUN 10 7 - 25 mg/dL [facility] CREATININE 0.73 0.50 - 1.05 mg/dL [facility] GFR 91 > OR = 60 mL/min/1. 73m2 [facility] BUN/CREAT RATIO SEE NOTE: 6 - 22 (calc) [facility] Comment: Not Reported: BUN and Creatinine are within reference range. SODIUM 142 135 - 146 mmol/L [facility] POTASSIUM 3.9 3.5 - 5.3 mmol/L [facility] CHLORIDE 103 98 - 110 mmol/L [facility] CO2 31 20 - 32 mmol/L [facility] CALCIUM 9.3 8.6 - 10.4 mg/dL [facility] TOTAL PROTEIN 7.2 6.1 - 8.1 g/dL [facility] ALBUMIN 4.4 3.6 - 5.1 g/dL [facility] GLOBULIN 2.8 1.9 - 3.7 g/dL (calc) [facility] ALBUMIN/GLOBULIN RATIO 1.6 1.0 - 2.5 (calc) [facility] BILIRUBIN TOTAL 0.5 0.2 - 1.2 mg/dL [facility] ALKALINE PHOSPHATASE 93 37 - 153 U/L [facility] AST 15 10 - 35 U/L [facility] ALT 12 6 - 29 U/L [facility] Comment: Test Performed at: [facility] [address] [address], [place] [address] Blake Arias MD Blood 12/16/2024 9:27 AM CDT 12/17/2024 5:02 AM CDT us Mary Lou Delcid MD CHEMISTRY ORDERABLES Final Res ult [facility] [phone] [facility] [address] [address], [place] [phone] from Last 3 Months Insurance ALLEGIANCE OPEN ACCESS * Guarantor: [employer] D (C) Account Type Relation to Patient Date of Phone Billing Address Corporate Employer ATTN: TONEY GRANT [address] [address] ALLEGIANCE OPEN ACCESS * Guarantor: [employer] Account Type Relation to Patient Date of Phone Billing Address Corporate Employer ATTN: TONEY [employer] [address] [address] Care Teams [employer] Relationship Specialty Start Date End Date Adalberto Mcdermott MD [address] [place], [place] [address] [address] PCP - General Family Practice 01/10/23
[2025-01-16] MEDS: diazePAM INJ (*CRX) 10 MG/2 ML SYRINGE 2.5 MG IV PUSH (17:28)
[2025-01-16] MEDS: PROMETHAZINE HCL 25 MG/ML AMPUL 12.5 MG IV PUSH (18:05)
[2025-01-16 18:11] LABS: Add Urine Microscopic? YES; Appearance Urine Clear (Clear); Bacteria Urine Rare /hpf; Bilirubin Urine Negative (Negative); Blood Urine Negative (Negative); Color Urine Yellow (Yellow); Glucose Urine UA Negative (Negative); Ketones Urine Negative (Negative); Leukocyte Esterase Ur 1+ LEU/UL (Negative); Nitrate Urine Negative (Negative); Non Pathogenic Casts 0-2; Protein Urine Negative (Negative); RBC Urine 0-2 /hpf (0-2); Specific Grav Ur 1.006 (1.001-1.035); Squamous Epithelial Cell Urine Occasional /hpf (Few); Urobilinogen Urine 0.2 mg/dL (<2.0); pH Urine 5.5 (5.0-9.0)
[2025-01-17] VITALS (11 sets, daily range): BP systolic 131–160; BP diastolic 42–69; PULSE 63–75; RESP 16–18; TEMP 36.6–36.9; O2SAT 98–99; BMI 30.2
--- NOTE | 2025-01-17 00:02 | PC.NURSE ---
Report called at 2250. Tech taking pt up is currently busy in room 8. No other techs available.
--- NOTE | 2025-01-17 00:26 | ADMGEN ---
This patient, Angella Ward, was admitted to Medical Room 250-. Patient/family oriented to hospital policies and general routines including ID bracelet, bed and alarms, visiting hours, pain management, procedures, bathroom and other care routines, personal items, smoking policy, room service/diet, and visiting hours. Information on how to activate the Rapid Response Team has been discussed. Patient/Family are encouraged to report perceived risks to care and to ask questions if they do not understand what they are told or what they should do.
--- NOTE | 2025-01-17 05:43 | P.HP_ITS ---
H&P: HPI History of Present Illness Date/Time: 01/17/25 05:43 Chief Complaint: 1. Dizziness Narrative: Angella Ward a 64-year-old female with a medical history significant for dyslipidemia, diabetes, hypothyroidism, hypertension and GERD, CVA Hours prior to admission while at work she developed sudden onset dizziness; was aggravated by movements/ambulation; elevated by immobility and inactivity; associated with tinnitus, an impairment of her functional status and ADLs with difficulty navigating environments. She denies ear fulness, preceding URTI, nausea/vomiting, chest pain, dyspnea, or LOC She has no smoking history tobacco, drink alcohol or consume recreational/illicit drugs. Work-up findings: Her WBC 5, HGB 11.7, MCV 89, PLT 249, Unremarkable CMP UA: 6-10 WBC, LE 1 +, negative nitrites, rare bacteria CXR: Unremarkable CTA head and neck: Unremarkable Angella Ward will be admitted, evaluated, and managed for dizziness/vertigo Review of Systems Review of Systems: All systems reviewed & are unremarkable except as noted in HPI and below PMFSH Past Medical History Medical History (Updated 01/17/25 @ 05:50 by Titi Luevano MD) BMI 27.0-27.9,adult History of recent hospitalization BMI 26.0-26.9,adult Abnormal echocardiogram Newly recognized murmur CVA (cerebral vascular accident) BMI 29.0-29.9,adult Hyperlipidemia Field's palsy Otitis media BMI 30.0-30.9,adult BMI 28.0-28.9,adult BMI 29.0-29.9,adult Acute cerebral infarction Hypothyroidism (acquired) Uncontrolled type 2 diabetes mellitus with hyperglycemia Surgical History Surgical History History of tonsillectomy H/O left knee surgery S/P foot surgery, left Family History Family History Mother Diabetes mellitus Cerebrovascular accident Family history of pancreatic cancer Family history of thyroid disease Father Hypertension Family history of elevated blood lipids Diabetes mellitus Aphasia Parkinson's disease Sibling Diabetes mellitus TIA (transient ischemic attack) Social History Social History Social History: 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 The patient lives with her father and she has 3 sons. The patient is a lifelong nonsmoker. She does not use any marijuana, alcohol or illicit drugs. Patient desires to be a full code. 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 Gender identity (if verbalized by the patient): Female Spiritual care concerns: No Meds Home Medications and Allergies Home Medications ?Medication ?Instructions ?Recorded ?Confirmed ?Type dulaglutide 0.75 mg/0.5 mL 0.75 mg (0.5 mL) subcut WEEKLY #6 09/19/23 01/16/25 Rx subcutaneous pen injector mL (Trulicity) metformin 500 mg tablet,extended 2,000 mg (4 x 500 mg) PO DAILY 01/02/24 01/16/25 Rx release 24 hr #360 tabs levothyroxine 137 mcg tablet 137 mcg PO DAILY #90 tabs 08/26/24 01/16/25 Rx lisinopril 10 mg tablet 10 mg PO DAILY #90 tabs 10/07/24 01/16/25 Rx omeprazole 40 mg capsule,delayed 40 mg PO BID #180 caps 10/23/24 01/16/25 Rx release atorvastatin 80 mg tablet (Lipitor) 80 mg PO DAILY #90 tabs 01/05/25 01/16/25 Rx aspirin 81 mg tablet,delayed 81 mg PO BID 01/16/25 01/16/25 History release (Adult Low Dose Aspirin) Allergies Allergy/AdvReac Type Severity Reaction Status Date / Time etodolac Allergy Severe Numbness Verified 01/16/25 13:20 ibuprofen Allergy Unknown Palpitation Verified 01/16/25 13:20 s poison janet extract Allergy Unknown Unknown Verified 01/16/25 13:20 prednisone Allergy Unknown Unknown Verified 01/16/25 13:20 tramadol Allergy Unknown Unknown Verified 01/16/25 13:20 topiramate AdvReac Unknown Elevated Verified 01/16/25 13:20 glucose Lodine Allergy Intermediate Unresponsiv Uncoded 01/16/25 18:49 e Vital Signs Vital Signs - 24 hr 01/16/25 13:14 01/16/25 13:15 01/16/25 13:16 Temperature 98.0 F Pulse Rate 78 81 81 Respiratory Rate 18 16 18 Blood Pressure 153/79 H 153/79 H Pulse Oximetry 97 96 98 Oxygen Delivery Room Air 01/16/25 13:30 01/16/25 13:31 01/16/25 13:50 Temperature Pulse Rate 75 73 68 Respiratory Rate 15 14 Blood Pressure 136/69 Pulse Oximetry 97 96 97 Oxygen Delivery 01/16/25 14:00 01/16/25 14:15 01/16/25 14:30 Temperature Pulse Rate 66 68 67 Respiratory Rate 15 16 13 Blood Pressure Pulse Oximetry 97 95 97 Oxygen Delivery 01/16/25 14:45 01/16/25 15:01 01/16/25 15:15 Temperature Pulse Rate 70 64 68 Respiratory Rate 14 13 15 Blood Pressure Pulse Oximetry 97 99 98 Oxygen Delivery 01/16/25 15:30 01/16/25 15:45 01/16/25 15:50 Temperature Pulse Rate 76 70 79 Respiratory Rate 20 16 15 Blood Pressure 144/68 H Pulse Oximetry 98 99 99 Oxygen Delivery 01/16/25 16:00 01/16/25 16:01 01/16/25 16:49 Temperature Pulse Rate 75 73 72 Respiratory Rate 14 13 14 Blood Pressure 134/71 Pulse Oximetry 97 97 97 Oxygen Delivery 01/16/25 17:27 01/16/25 17:30 01/16/25 17:31 Temperature Pulse Rate 76 74 73 Respiratory Rate 17 17 18 Blood Pressure 151/86 H Pulse Oximetry 98 99 97 Oxygen Delivery 01/16/25 17:47 01/16/25 18:00 01/16/25 19:45 Temperature Pulse Rate 80 69 69 Respiratory Rate 26 H 13 17 Blood Pressure Pulse Oximetry 96 95 98 Oxygen Delivery 01/16/25 19:46 01/16/25 20:00 01/16/25 20:01 Temperature Pulse Rate 68 67 69 Respiratory Rate 15 13 14 Blood Pressure 134/73 142/78 H Pulse Oximetry 100 95 96 Oxygen Delivery 01/16/25 20:28 01/16/25 20:30 01/16/25 23:03 Temperature 97.6 F Pulse Rate 71 75 64 Respiratory Rate 14 13 14 Blood Pressure 142/75 H Pulse Oximetry 95 Oxygen Delivery 01/17/25 00:18 01/17/25 00:30 01/17/25 04:00 Temperature 98.4 F Pulse Rate 63 64 75 Respiratory Rate 17 Blood Pressure 160/68 H Pulse Oximetry 99 Oxygen Delivery 01/17/25 05:25 Temperature 97.8 F Pulse Rate 63 Respiratory Rate 17 Blood Pressure 148/65 H Pulse Oximetry 98 Oxygen Delivery H&P: Results Labs Labs: Short CBC 01/16/25 Range/Units 14:08 WBC 5.0 (4.5-10.0) K/mm3 Hgb 11.7 L (12.0-15.0) g/dL Hct 35.4 L (37.0-47.0) % Plt Count 249 (150-375) k/mm3 BMP 01/16/25 14:07 Sodium 140 Potassium 3.7 Chloride 103 Carbon Dioxide 30 BUN 6 L Creatinine 0.71 Glucose 156 H Calcium 9.1 Liver Function 01/16/25 Range/Units 14:07 Total Bilirubin 0.4 (0.2-1.3) mg/dL AST 24 (14-36) U/L ALT 17 (6-35) U/L Alkaline Phosphatase 85 (38-126) U/L Albumin 4.3 (3.5-5.1) g/dL Urine 01/16/25 Range/Units 17:56 Urine Color Yellow (Yellow) Urine Appearance Clear (Clear) Urine pH 5.5 (5.0-9.0) Ur Specific [place] 1.006 (1.001-1.035) Urine Protein Negative (Negative) mg/dL Urine Glucose (UA) Negative (Negative) mg/dL Assessment and Plan Assessment and plan (1) Essential hypertension: Code(s): I10 - Essential (primary) hypertension Status: Acute (2) Vertigo: Code(s): R42 - Dizziness and giddiness Status: Acute (3) Hyperlipidemia: Code(s): E78.5 - Hyperlipidemia, unspecified Status: Chronic Plan Acute and principal conditions 1. Dizziness; Vertigo 2. Mild UTI Rx: A. MRI brain B. Meclizine C. PT for vestibular evaluation Chronic and stable conditions 1. CVA without deficits 2. Dyslipidemia. 3. IDDM2. On correctional insulin 4. Obesity, BMI 30 Miscellaneous care 1. Code status. Full 2. Nutrition. Carb-controlled 3. VTE prophylaxis. SCDs; STEVEN Hospitalist MIPS Advance Care Plan I have confirmed that the patient's Advanced Care Plan is present, code status is documented, or surrogate decision maker is listed in patient medical record.: Yes Medication Reconciliation I have utilized all available resources to obtain, update and review the patients current medications (includes all prescriptions, OTC, herbals, cannabis, and nutritional supplements).: Yes The patient is not eligible for med reconciliation; the patient is in a emergent medical situation where delaying treatment would jeopardize the patients health.: Yes
[2025-01-17] MEDS: LEVOTHYROXINE SODIUM 25 MCG TABLET PO (06:24)
[2025-01-17] MEDS: SODIUM CHLORIDE 0.9% IV 1,000 ML 75 ML IV CONT ×2 (06:24→23:37)
[2025-01-17] MEDS: LEVOTHYROXINE SODIUM 112 MCG TABLET PO (06:24)
[2025-01-17 08:04] LABS: Glucose Point of Care 100 mg/dl (65-105)
--- NOTE | 2025-01-17 08:17 | PM.IMPN ---
Progress Note: A&P Assessment and Plan (1) Essential hypertension: Code(s): I10 - Essential (primary) hypertension Status: Acute (2) Vertigo: Code(s): R42 - Dizziness and giddiness Status: Acute (3) Hyperlipidemia: Code(s): E78.5 - Hyperlipidemia, unspecified Status: Chronic Plan Acute and principal conditions 1. Dizziness; Vertigo 2. Mild UTI Rx: A. MRI brain B. Meclizine C. PT for vestibular evaluation-ordered Chronic and stable conditions 1. CVA without deficits 2. Dyslipidemia. 3. IDDM2. On correctional insulin-holding trulicity and metformin 4. Obesity, BMI 30 Miscellaneous care 1. Code status. Full 2. Nutrition. Carb-controlled 3. VTE prophylaxis. SCDs; STEVEN Time Spent With Patient Time with patient: 25 - 35 minutes Subjective Date/time seen: 01/17/25 08:17 Interval history: Angella Ward a 64-year-old female with a medical history significant for dyslipidemia, diabetes, hypothyroidism, hypertension and GERD, CVA is admitted for dizziness/vertigo WBC 5, HGB 11.7, MCV 89, PLT 249, Unremarkable CMP UA: 6-10 WBC, LE 1 +, negative nitrites, rare bacteria CXR: Unremarkable CTA head and neck: Unremarkable Pt is seen and examined. PT was consulted. Pt said she had been feeling dizzy for a liog time, has extensive workup with no clear explanation. Review of Systems Review of Systems: All systems reviewed & are unremarkable except as noted in HPI and below Exam Const: General: comfortable Eyes: General: appearance normal, both eyes and all related structures Resp: Effort & Inspection: normal respiratory effort Auscultation: clear to auscultation bilaterally Cardio: Rate: regular rate Rhythm: regular rhythm GI: GI Palp: Yes Soft to palpation Auscultation: normal bowel sounds Skin: General skin exam: normal color Objective Data Vital Signs Vital Signs: Vital Signs - 24 hr 01/16/25 13:14 01/16/25 13:15 01/16/25 13:16 Temperature 98.0 F Pulse Rate 78 81 81 Respiratory Rate 18 16 18 Blood Pressure 153/79 H 153/79 H Pulse Oximetry 97 96 98 Oxygen Delivery Room Air 01/16/25 13:30 01/16/25 13:31 01/16/25 13:50 Temperature Pulse Rate 75 73 68 Respiratory Rate 15 14 Blood Pressure 136/69 Pulse Oximetry 97 96 97 Oxygen Delivery 01/16/25 14:00 01/16/25 14:15 01/16/25 14:30 Temperature Pulse Rate 66 68 67 Respiratory Rate 15 16 13 Blood Pressure Pulse Oximetry 97 95 97 Oxygen Delivery 01/16/25 14:45 01/16/25 15:01 01/16/25 15:15 Temperature Pulse Rate 70 64 68 Respiratory Rate 14 13 15 Blood Pressure Pulse Oximetry 97 99 98 Oxygen Delivery 01/16/25 15:30 01/16/25 15:45 01/16/25 15:50 Temperature Pulse Rate 76 70 79 Respiratory Rate 20 16 15 Blood Pressure 144/68 H Pulse Oximetry 98 99 99 Oxygen Delivery 01/16/25 16:00 01/16/25 16:01 01/16/25 16:49 Temperature Pulse Rate 75 73 72 Respiratory Rate 14 13 14 Blood Pressure 134/71 Pulse Oximetry 97 97 97 Oxygen Delivery 01/16/25 17:27 01/16/25 17:30 01/16/25 17:31 Temperature Pulse Rate 76 74 73 Respiratory Rate 17 17 18 Blood Pressure 151/86 H Pulse Oximetry 98 99 97 Oxygen Delivery 01/16/25 17:47 01/16/25 18:00 01/16/25 19:45 Temperature Pulse Rate 80 69 69 Respiratory Rate 26 H 13 17 Blood Pressure Pulse Oximetry 96 95 98 Oxygen Delivery 01/16/25 19:46 01/16/25 20:00 01/16/25 20:01 Temperature Pulse Rate 68 67 69 Respiratory Rate 15 13 14 Blood Pressure 134/73 142/78 H Pulse Oximetry 100 95 96 Oxygen Delivery 01/16/25 20:28 01/16/25 20:30 01/16/25 23:03 Temperature 97.6 F Pulse Rate 71 75 64 Respiratory Rate 14 13 14 Blood Pressure 142/75 H Pulse Oximetry 95 Oxygen Delivery 01/17/25 00:18 01/17/25 00:30 01/17/25 04:00 Temperature 98.4 F Pulse Rate 63 64 75 Respiratory Rate 17 Blood Pressure 160/68 H Pulse Oximetry 99 Oxygen Delivery 01/17/25 05:25 Temperature 97.8 F Pulse Rate 63 Respiratory Rate 17 Blood Pressure 148/65 H Pulse Oximetry 98 Oxygen Delivery Intake/Output Intake/Output: Intake & Output 01/14/25 01/15/25 01/16/25 01/17/25 23:59 23:59 23:59 23:59 Output Total 400 Balance -400 Meds/Results Medications: Active Medications Generic Name Dose Route Start Last Admin Trade Name Freq PRN Reason Stop Dose Admin Acetaminophen 650 mg 01/16/25 22:03 Acetaminophen 325 Mg Tablet PO Q4H PRN Mild Pain (1-3) or Fever Aspirin 81 mg 01/17/25 09:00 Aspirin 81 Mg Enteric Tablet PO Q12HR [facility] Atorvastatin Calcium 80 mg 01/17/25 09:00 Atorvastatin 40 Mg Tablet PO DAILY [facility] Dextrose 12.5 gm 01/17/25 05:48 Dextrose 50% 25 Gm/50 Ml Syringe IV PUSH PRN PRN Hypoglycemia Protocol Glucagon 1 mg 01/17/25 05:48 Glucagon For Inj 1 Mg Vial IM PRN PRN Hypoglycemia Protocol Glucose 15 gm 01/17/25 05:48 Glucose Oral Gel 15 Gm Of Glucse In 37.5 Gm Tube PO PRN PRN Hypoglycemia Protocol Heparin Sodium (Porcine) 5,000 units 01/17/25 09:00 Heparin Sodium 5,000 Units/Ml Vial SUB-Q Q12HR [facility] Sodium Chloride 1,000 mls @ 75 mls/hr 01/17/25 05:45 01/17/25 06:24 Normal Saline Iv IV CONT 75 mls/hr .[id number] STEVEN Administration Dextrose 1,000 mls @ 100 mls/hr 01/17/25 05:48 Dextrose 5% 1,000 Ml IVPB PRN PRN Hypoglycemia Protocol Insulin Aspart 1 - 3 units 01/17/25 21:00 Insulin Aspart (*Bkc) 100 Units/Ml SUB-Q HS [facility] Protocol Insulin Aspart 3 - 6 units 01/17/25 08:00 Insulin Aspart (*Bkc) 100 Units/Ml SUB-Q TIDWM [facility] Protocol Levothyroxine Sodium 112 mcg 01/17/25 06:30 01/17/25 06:24 Levothyroxine Sodium 112 Mcg Tablet PO 112 mcg DAILY@0630 STEVEN Administration Levothyroxine Sodium 25 mcg 01/17/25 06:30 01/17/25 06:24 Levothyroxine Sodium 25 Mcg Tablet PO 25 mcg DAILY@0630 STEVEN Administration Lisinopril 10 mg 01/17/25 09:00 Lisinopril 10 Mg Tablet PO DAILY [facility] Meclizine HCl 25 mg 01/17/25 05:46 Meclizine Hcl 25 Mg Tablet PO Q8HR PRN Vertigo Melatonin 5 mg 01/17/25 05:42 Melatonin 5 Mg Tablet PO HS PRN Insomnia Ondansetron HCl 4 mg 01/16/25 22:03 Ondansetron Inj 4 Mg/2 Ml Vial IV PUSH Q4H PRN Nausea Pantoprazole Sodium 40 mg 01/17/25 09:00 Pantoprazole 40 Mg Tablet PO Q12HR [facility] Radiology Results: ITS Impressions Head CT 01/16/25 13:49 IMPRESSION: 1. Unchanged old left basal ganglia infarct. No acute intracranial process. Chest X-Ray 01/16/25 13:56 IMPRESSION: No acute process. Head/Neck CTA 01/16/25 21:27 IMPRESSION: 1. Normal CTA head 2. CTA of the neck. Percent stenosis per NASCET criteria is 0%. Labs Labs: Laboratory Results - last 24 hr 01/16/25 01/16/25 01/16/25 14:07 14:08 17:56 WBC 5.0 RBC 3.94 L Hgb 11.7 L Hct 35.4 L MCV 89.8 MCH 29.7 MCHC 33.1 RDW 13.3 Plt Count 249 MPV 8.3 Immature Gran % (Auto) 0.4 Neut % (Auto) 60.5 Lymph % (Auto) 27.9 [place] % (Auto) 5.1 Eos % (Auto) 5.5 H Baso % (Auto) 0.6 Lymph # (Auto) 1.38 [place] # (Auto) 0.3 Eos # (Auto) 0.3 Baso # (Auto) 0.0 Abs Immat Gran (auto) 0.02 Absolute Neuts (auto) 3.0 Absolute Nucleated RBC 0.000 Nucleated RBC % 0.0 Sodium 140 Potassium 3.7 Chloride 103 Carbon Dioxide 30 Anion Gap 7 BUN 6 L Creatinine 0.71 Estim Creat Clear Calc 62 Estimated GFR > 60 Glucose 156 H POC Capillary Glucose Calcium 9.1 Total Bilirubin 0.4 AST 24 ALT 17 Alkaline Phosphatase 85 Total Protein 8.0 Albumin 4.3 Urine Color Yellow Urine Appearance Clear Urine pH 5.5 Ur Specific [place] 1.006 Urine Protein Negative Urine Glucose (UA) Negative Urine Ketones Negative Ur Blood (Man) Negative Urine Nitrate Negative Urine Bilirubin Negative Urine Urobilinogen 0.2 Leukocyte Esterase Rfl 1+ H Urine RBC 0-2 Urine WBC 6-10 H Ur Squamous Epith Cells Occasional Urine Bacteria Rare Urine Casts 0-2 01/17/25 08:02 WBC RBC Hgb Hct MCV MCH MCHC RDW Plt Count MPV Immature Gran % (Auto) Neut % (Auto) Lymph % (Auto) [place] % (Auto) Eos % (Auto) Baso % (Auto) Lymph # (Auto) [place] # (Auto) Eos # (Auto) Baso # (Auto) Abs Immat Gran (auto) Absolute Neuts (auto) Absolute Nucleated RBC Nucleated RBC % Sodium Potassium Chloride Carbon Dioxide Anion Gap BUN Creatinine Estim Creat Clear Calc Estimated GFR Glucose POC Capillary Glucose 100 Calcium Total Bilirubin AST ALT Alkaline Phosphatase Total Protein Albumin Urine Color Urine Appearance Urine pH Ur Specific [place] Urine Protein Urine Glucose (UA) Urine Ketones Ur Blood (Man) Urine Nitrate Urine Bilirubin Urine Urobilinogen Leukocyte Esterase Rfl Urine RBC Urine WBC Ur Squamous Epith Cells Urine Bacteria Urine Casts
[2025-01-17] MEDS: ASPIRIN 81 MG ENTERIC TABLET PO ×2 (08:53→21:32)
[2025-01-17] MEDS: PANTOPRAZOLE 40 MG TABLET PO ×2 (08:53→21:32)
[2025-01-17] MEDS: HEPARIN SODIUM 5,000 UNITS/ML VIAL 5000 UNITS SUB-Q ×2 (08:53→21:32)
[2025-01-17] MEDS: ATORVASTATIN 40 MG TABLET 80 MG PO (08:53)
[2025-01-17] MEDS: lisinopriL 10 MG TABLET PO (08:53)
[2025-01-17 12:07] LABS: Glucose Point of Care 95 mg/dl (65-105)
[2025-01-17 16:47] LABS: Glucose Point of Care 103 mg/dl (65-105)
[2025-01-17 23:46] LABS: Glucose Point of Care 107 mg/dl (65-105)
[2025-01-18] VITALS (9 sets, daily range): BP systolic 100–133; BP diastolic 53–80; PULSE 60–75; RESP 16–18; TEMP 36.4–36.6; O2SAT 96–98
--- NOTE | 2025-01-18 | ECHO_ITS ---
Patient Info Name: Angella Ward Age: 64 years : 1960 Gender: Female Ht: 61 in Wt: 160 lbs BSA: 1.79 m2 HR: 60 bpm BP: 121 / 60 mmHg Heart Rhythm: Sinus Rhythm Technical Quality: Good Exam Date: 01/18/2025 12:54 PM Exam Location: Echo Lab Patient Status: Inpatient Admit Date: 01/16/2025 Staff Ordering Physician: Robyn Shaw APRN Restaurant Cook: Katiuska Rogel RDCS Attending Provider: Titi Luevano MD Referring Physician: Colin WOMACK; Exam Type: CA echo doppler color flow Study Info Indications - Dizziness Complete two-dimensional, color flow and Doppler transthoracic echocardiogram is performed. Summary 1. Complete two-dimensional, color flow and Doppler transthoracic echocardiogram is performed. 2. There is normal biventricular size and systolic function. 3. There are no significant valvular abnormalities. Left Ventricle The left ventricle is normal in size and systolic function. The left ventricular ejection fraction is visually estimated to be 60-65%. Right Ventricle The right ventricle is normal in size and systolic function. Left Atria The left atrium is mildly dilated. Atrial Septum The atrial septum is not well visualized. Pulmonic Valve The pulmonic valve is not well visualized. There is no color Doppler evidence of pulmonic valve regurgitation. Mitral Valve The mitral valve leaflets are opening well. There is mild mitral regurgitation. Tricuspid Valve The tricuspid valve is normal. There is trace tricuspid regurgitation. Pericardium/Pleural Pericardium is normal in appearance with no evidence for significant pericardial effusion. Inferior Vena Cava Normal inferior vena cava with >50% collapse upon inspiration consistent with normal right atrial pressure, 3 mmHg. Left Ventricular Outflow Tract Name Value Normal LVOT 2D LVOT Diameter 2.0 cm LVOT Doppler LVOT Peak Gradient 3 mmHg LVOT Mean Gradient 1 mmHg LVOT VTI 17 cm LVOT VTI/AV VTI Ratio 0.4 LVOT Stroke Volume 51 ml LVOT CO 4.1 l/min LVOT CI 2.3 l/min/m2 Pulmonic Valve Name Value Normal RVOT Doppler RVOT Peak Gradient 1 mmHg PV Doppler PV Peak Gradient 4 mmHg Mitral Valve Name Value Normal MV Doppler MV Decel Colbert 353 cm/s2 MV PHT 55 ms MV Area (PHT) 4.0 cm2 4.0-5.0 MV Diastolic Function MV E Peak Velocity 67 cm/s MV A Peak Velocity 74 cm/s MV E/A 0.9 MV Decel Time 189 ms MV Annular TDI MV E/e' (Septal) 10.9 <=8.0 MV E/e' (Lateral) 9.9 <=8.0 MV E/e' (Average) 10.4 Tricuspid Valve Name Value Normal TV Regurgitation Doppler TR Peak Velocity 251 cm/s TR Peak Gradient 25 mmHg Estimated PAP/RSVP RA Pressure 3 mmHg <=5 PA Systolic Pressure 28 mmHg <36 RV Systolic Pressure 28 mmHg <36 Aortic Valve Name Value Normal AV Doppler AV Peak Velocity 176 cm/s AV Peak Gradient 12 mmHg AV Mean Gradient 6 mmHg AV VTI 38 cm AV Area (Cont Eq VTI) 1.3 cm2 >=3.0 AV Area (Cont Eq Andrade) 1.4 cm2 AV Regurgitation 2D LVOT Area 3.0 cm2 Ventricles Name Value Normal LV Dimensions 2D/MM IVS Diastolic Thickness (2D) 1.0 cm 0.6-1.0 LVID Diastole (2D) 4.3 cm 3.8-5.2 LVIW Diastolic Thickness (2D) 0.9 cm 0.6-0.9 LVID Systole (2D) 2.8 cm 2.2-3.5 LVOT Diameter 2.0 cm LV Mass (2D Cubed) 125.10 g 67.00-162.00 LV Mass Index (2D Cubed) 70 g/m2 43-95 Relative Wall Thickness (2D) 0.40 LV Fractional Shortening/Ejection Fraction 2D/MM LV Fractional Shortening (2D) 35 % 27-45 LV EF (2D Teicholz) 65 % 54-74 LV Diastolic Volume (4C MOD) 123 ml LV EF (4C MOD) 71 % LV Diastolic Volume (2C MOD) 118 ml LV EF (2C MOD) 51 % LV Diastolic Volume (BP MOD) 120 ml 46-106 LV Diastolic Volume Index (BP MOD) 67 ml/m2 29-61 LV Systolic Volume (BP MOD) 46 ml 14-42 LV Systolic Volume Index (BP MOD) 26 ml/m2 8-24 LV EF (BP MOD) 62 % 54-74 LV Diastolic Length (4C) 7.7 cm LV Systolic Length (4C) 6.4 cm LV Stroke Volume (4C MOD) 88 ml Atria Name Value Normal LA Dimensions LA Volume (4C A-L) 64 ml LA Volume (BP A-L) 65 ml RA Dimensions RA Area (4C) 14.5 cm2 <=18.0 Report Signatures
[2025-01-18] MEDS: LEVOTHYROXINE SODIUM 112 MCG TABLET PO (06:16)
[2025-01-18] MEDS: LEVOTHYROXINE SODIUM 25 MCG TABLET PO (06:16)
[2025-01-18 06:36] LABS: Basophils Percent Auto 0.7 % (0.2-1.2); Eosinophils Absolute Auto 0.3 K/mm3 (0-0.3); Eosinophils Percent Auto 6.1 % (0-4.4); Hematocrit 33.1 % (37.0-47.0); Hemoglobin 11.1 g/dL (12.0-15.0); Immature Granulocyte Absolute 0.01 K/mm3 (0.00-0.031); Immature Granulocyte Percent A 0.2 % (0-0.5); Lymphocytes Absolute Auto 1.46 K/mm3 (0.9-3.2); Lymphocytes Percent Auto 34.4 % (18.3-44.2); Mean Corpuscular HGB Conc 33.5 g/dl (32-36); Mean Corpuscular Hemoglobin 30.4 pg (26-34); Mean Corpuscular Volume 90.7 fl (80-100); Mean Platelet Volume 8.6 fl (7.4-10.4); Monocytes Absolute Auto 0.2 K/mm3 (0.1-0.6); Monocytes Percent Auto 5.4 % (2.6-8.5); Neutrophils Absolute Auto 2.3 K/mm3 (1.3-6.7); Neutrophils Percent Auto 53.2 % (45.5-73.1); Platelet Count Result 211 k/mm3 (150-375); Red Blood Count 3.65 M/mm3 (4.2-5.4); Red Cell Distribution Width 13.2 % (11.5-14.5); White Blood Count 4.2 K/mm3 (4.5-10.0)
[2025-01-18 06:47] LABS: Alanine Aminotransferase 13 U/L (6-35); Albumin Level 3.5 g/dL (3.5-5.1); Alkaline Phosphatase 78 U/L (38-126); Anion Gap 7 mmol/L (4-12); Aspartate Amino Transferase 18 U/L (14-36); Bilirubin,Total 0.7 mg/dL (0.2-1.3); Blood Urea Nitrogen 8 mg/dL (7-17); Calcium 8.4 mg/dL (8.4-10.2); Carbon Dioxide 29 mmol/L (22-30); Chloride 105 mmol/L (98-107); Estimated CRCL calculation 55 ml/min; Estimated Glomerular Filt Rate > 60; Glucose 105 mg/dL (65-110); Potassium 3.6 mmol/L (3.4-5.0); Sodium 141 mmol/L (137-145)
--- NOTE | 2025-01-18 07:58 | P.PNIM_ITS ---
Progress Note: A&P Assessment and Plan (1) Essential hypertension: Code(s): I10 - Essential (primary) hypertension Status: Acute (2) Vertigo: Code(s): R42 - Dizziness and giddiness Status: Acute (3) Hyperlipidemia: Code(s): E78.5 - Hyperlipidemia, unspecified Status: Chronic Plan Acute and principal conditions 1. Dizziness; Vertigo 2. Mild UTI Rx: A. MRI brain- Left basal ganglia lacunar infarct. No acute intracranial process or abnormally enhancing brain lesions. B. Meclizine C. PT for vestibular evaluation-ordered D. neurology consulted- awaiting recommendation. e. continue asa, statin 80 mg - will order echo -anticipate discharge tomorrow Chronic and stable conditions 1. CVA without deficits 2. Dyslipidemia. 3. IDDM2. On correctional insulin-holding trulicity and metformin 4. Obesity, BMI 30 Miscellaneous care 1. Code status. Full 2. Nutrition. Carb-controlled 3. VTE prophylaxis. SCDs; STEVEN Time Spent With Patient Time with patient: 25 - 35 minutes Subjective Date/time seen: 01/18/25 07:58 Interval history: Angella Ward a 64-year-old female with a medical history significant for dyslipidemia, diabetes, hypothyroidism, hypertension and GERD, CVA is admitted for dizziness/vertigo WBC 5, HGB 11.7, MCV 89, PLT 249, Unremarkable CMP UA: 6-10 WBC, LE 1 +, negative nitrites, rare bacteria CXR: Unremarkable CTA head and neck: Unremarkable Pt is seen and examined. PT was consulted. Pt said she had been feeling dizzy for a long time, has extensive workup with no clear explanation. MRI was done- no acute issues, lt basal gangl.infarct. Neurology was consulted. PT/OT working with pt. 01/18 neurology saw pt. NO changes to meds. echo is recommended-will order. pt worked with pt/ot. doing ok, no acute complains Review of Systems Review of Systems: All systems reviewed & are unremarkable except as noted in HPI and below Exam Const: General: comfortable Eyes: General: appearance normal, both eyes and all related structures Resp: Effort & Inspection: normal respiratory effort Auscultation: clear to auscultation bilaterally Cardio: Rate: regular rate Rhythm: regular rhythm GI: Auscultation: normal bowel sounds Skin: General skin exam: normal color Objective Data Vital Signs Vital Signs: Vital Signs - 24 hr 01/17/25 08:00 01/17/25 11:54 01/17/25 13:48 Temperature 98.0 F Pulse Rate 63 67 Respiratory Rate 18 Blood Pressure 149/69 H Pulse Oximetry 98 99 Oxygen Delivery Room Air 01/17/25 16:00 01/17/25 20:00 01/17/25 20:00 Temperature Pulse Rate 71 65 Respiratory Rate Blood Pressure Pulse Oximetry Oxygen Delivery Room Air 01/17/25 20:12 01/17/25 23:02 01/18/25 00:00 Temperature 98.2 F Pulse Rate 69 61 Respiratory Rate 16 Blood Pressure 131/42 L Pulse Oximetry 99 99 Oxygen Delivery Room Air 01/18/25 04:00 01/18/25 04:38 Temperature 97.8 F Pulse Rate 62 60 Respiratory Rate 16 Blood Pressure 121/60 Pulse Oximetry 96 Oxygen Delivery Intake/Output Intake/Output: Intake & Output 01/15/25 01/16/25 01/17/25 01/18/25 23:59 23:59 23:59 23:59 Intake Total 1870 250 Output Total 400 Balance 1470 250 Meds/Results Medications: Active Medications Generic Name Dose Route Start Last Admin Trade Name Freq PRN Reason Stop Dose Admin Acetaminophen 650 mg 01/16/25 22:03 Acetaminophen 325 Mg Tablet PO Q4H PRN Mild Pain (1-3) or Fever Aspirin 81 mg 01/17/25 09:00 01/17/25 21:32 Aspirin 81 Mg Enteric Tablet PO 81 mg Q12HR STEVEN Administration Atorvastatin Calcium 80 mg 01/17/25 09:00 01/17/25 08:53 Atorvastatin 40 Mg Tablet PO 80 mg DAILY STEVEN Administration Dextrose 12.5 gm 01/17/25 05:48 Dextrose 50% 25 Gm/50 Ml Syringe IV PUSH PRN PRN Hypoglycemia Protocol Glucagon 1 mg 01/17/25 05:48 Glucagon For Inj 1 Mg Vial IM PRN PRN Hypoglycemia Protocol Glucose 15 gm 01/17/25 05:48 Glucose Oral Gel 15 Gm Of Glucse In 37.5 Gm Tube PO PRN PRN Hypoglycemia Protocol Heparin Sodium (Porcine) 5,000 units 01/17/25 09:00 01/17/25 21:32 Heparin Sodium 5,000 Units/Ml Vial SUB-Q 5,000 units Q12HR STEVEN Administration Sodium Chloride 1,000 mls @ 75 mls/hr 01/17/25 05:45 01/17/25 23:37 Normal Saline Iv IV CONT 75 mls/hr .[id number] STEVEN Administration Dextrose 1,000 mls @ 100 mls/hr 01/17/25 05:48 Dextrose 5% 1,000 Ml IVPB PRN PRN Hypoglycemia Protocol Insulin Aspart 1 - 3 units 01/17/25 21:00 01/17/25 23:24 Insulin Aspart (*Bkc) 100 Units/Ml SUB-Q Not Given HS STEVEN Protocol Insulin Aspart 3 - 6 units 01/17/25 08:00 01/17/25 17:08 Insulin Aspart (*Bkc) 100 Units/Ml SUB-Q Not Given TIDWM STEVEN Protocol Levothyroxine Sodium 112 mcg 01/17/25 06:30 01/18/25 06:16 Levothyroxine Sodium 112 Mcg Tablet PO 112 mcg DAILY@0630 STEVEN Administration Levothyroxine Sodium 25 mcg 01/17/25 06:30 01/18/25 06:16 Levothyroxine Sodium 25 Mcg Tablet PO 25 mcg DAILY@0630 STEVEN Administration Lisinopril 10 mg 01/17/25 09:00 01/17/25 08:53 Lisinopril 10 Mg Tablet PO 10 mg DAILY STEVEN Administration Meclizine HCl 25 mg 01/17/25 05:46 Meclizine Hcl 25 Mg Tablet PO Q8HR PRN Vertigo Melatonin 5 mg 01/17/25 05:42 Melatonin 5 Mg Tablet PO HS PRN Insomnia Ondansetron HCl 4 mg 01/16/25 22:03 Ondansetron Inj 4 Mg/2 Ml Vial IV PUSH Q4H PRN Nausea Pantoprazole Sodium 40 mg 01/17/25 09:00 01/17/25 21:32 Pantoprazole 40 Mg Tablet PO 40 mg Q12HR STEVEN Administration Radiology Results: ITS Impressions Head CT 01/16/25 13:49 IMPRESSION: 1. Unchanged old left basal ganglia infarct. No acute intracranial process. Chest X-Ray 01/16/25 13:56 IMPRESSION: No acute process. Head/Neck CTA 01/16/25 21:27 IMPRESSION: 1. Normal CTA head 2. CTA of the neck. Percent stenosis per NASCET criteria is 0%. Brain MRI 01/17/25 11:52 IMPRESSION: 1. Left basal ganglia lacunar infarct. No acute intracranial process or abnormally enhancing brain lesions. Labs Labs: Laboratory Results - last 24 hr 01/17/25 01/17/25 01/17/25 08:02 12:04 16:44 WBC RBC Hgb Hct MCV MCH MCHC RDW Plt Count MPV Immature Gran % (Auto) Neut % (Auto) Lymph % (Auto) [place] % (Auto) Eos % (Auto) Baso % (Auto) Lymph # (Auto) [place] # (Auto) Eos # (Auto) Baso # (Auto) Abs Immat Gran (auto) Absolute Neuts (auto) Absolute Nucleated RBC Nucleated RBC % Sodium Potassium Chloride Carbon Dioxide Anion Gap BUN Creatinine Estim Creat Clear Calc Estimated GFR Glucose POC Capillary Glucose 100 95 103 Calcium Total Bilirubin AST ALT Alkaline Phosphatase Total Protein Albumin 01/17/25 01/18/25 22:55 06:02 WBC 4.2 L RBC 3.65 L Hgb 11.1 L Hct 33.1 L MCV 90.7 MCH 30.4 MCHC 33.5 RDW 13.2 Plt Count 211 MPV 8.6 Immature Gran % (Auto) 0.2 Neut % (Auto) 53.2 Lymph % (Auto) 34.4 [place] % (Auto) 5.4 Eos % (Auto) 6.1 H Baso % (Auto) 0.7 Lymph # (Auto) 1.46 [place] # (Auto) 0.2 Eos # (Auto) 0.3 Baso # (Auto) 0.0 Abs Immat Gran (auto) 0.01 Absolute Neuts (auto) 2.3 Absolute Nucleated RBC 0.000 Nucleated RBC % 0.0 Sodium 141 Potassium 3.6 Chloride 105 Carbon Dioxide 29 Anion Gap 7 BUN 8 Creatinine 0.81 Estim Creat Clear Calc 55 Estimated GFR > 60 Glucose 105 POC Capillary Glucose 107 H Calcium 8.4 Total Bilirubin 0.7 AST 18 ALT 13 Alkaline Phosphatase 78 Total Protein 7.0 Albumin 3.5
[2025-01-18] MEDS: lisinopriL 10 MG TABLET PO (08:05)
[2025-01-18] MEDS: ATORVASTATIN 40 MG TABLET 80 MG PO (08:05)
[2025-01-18] MEDS: PANTOPRAZOLE 40 MG TABLET PO ×2 (08:06→22:03)
[2025-01-18] MEDS: HEPARIN SODIUM 5,000 UNITS/ML VIAL 5000 UNITS SUB-Q ×2 (08:06→22:03)
[2025-01-18] MEDS: ASPIRIN 81 MG ENTERIC TABLET PO ×2 (08:06→22:03)
[2025-01-18 08:35] LABS: Glucose Point of Care 101 mg/dl (65-105)
--- NOTE | 2025-01-18 09:36 | P.CONNEU_ITS ---
Assessment and Plan Assessment and plan (1) Vertigo: Code(s): R42 - Dizziness and giddiness Status: Acute (2) Dizziness: Code(s): R42 - Dizziness and giddiness Status: Acute (3) Diabetic neuropathy: Qualifiers: Diabetes mellitus type: type 2 Diabetes mellitus complication detail: w ith other neurological complication Qualified Code(s): E11.49 - Type 2 diabetes mellitus with other diabetic neurological complication Code(s): E11.40 - Type 2 diabetes mellitus with diabetic neuropathy, unspecified Status: Acute Plan 1. Ongoing history of diabetes mellitus with dyslipidemia and hypothyroidism and hypertension with sudden onset of dizziness aggravated by movements and ambulation raising the possibility of either TIA, peripheral autonomic dysfunction, particularly with the history of the diabetes mellitus. 2. Ongoing history of subcortical basal ganglia stroke most likely on the basis of again a small vessel disease with all the underlying risk factors, without any evidence of extraocular movement abnormalities to account for the blurred vision and dizziness 3. Possibility of vestibular distal function for which physical therapy has been ordered. At this stage she is receiving aspirin 81mg b.i.d., atorvastatin 80mg daily Trulicity is 0.75mg subQ weekly and levothyroxine 137mcg daily, lisinopril 10mg daily, and vitamin B12 1000mcg p.o. daily, in addition to metformin and omeprazole the treatment will be continued as such. Has been mentioned that her echocardiogram was abnormal in the past could be repeated to confirm, the 1 in 22 was only with mild aortic valve sclerosis and trace mitral valve regurgitation but no further abnormalities. Consult date: 01/18/25 HPI: Angella Ward is a 64 year old female Admitted to the hospital through the emergency room for the complaints of dizziness of at least 1hour duration, described as something is pushing her head down causing a pressure sensation she also complained of her left side of the face feeling weird, In addition to the complaint of blurred vision which has since resolved. Glucose checked by EMS at that time was 1:18 a.m. mg per 100cc she mentioned that she has had a stroke about 4 to 5 years ago but without any residual deficit she also described the sensation of spinning only when she closed her eyes. At the time of this visit she has been taking aspirin and statin, she is allergic to multiple medications which particularly involved ibuprofen, prednisone, tramadol, the med, and Lodine. She has history of abnormal echocardiogram, newly recognized murmur, history of stroke as mentioned above, history of hyperlipidemia, and history of Field's palsy, in addition to uncontrolled type 2 diabetes mellitus, he has never alcohol intake, and never a smoker, on initial exam in the emergency room she was found to have no focal neurological deficit. Her vital signs were normal with blood pressure of 153/79, initial CT scan of the head was positive for the old left basal gangliar infarct involving the caudate and lentiform nuclei and intervening anterior limb of the internal capsule, CTA of the head and neck was negative, and subsequently she has had the MRI of the brain on the floor which documented again left basal ganglia lacunar infarct but no acute lesion. Review of Systems 2 Review of Systems: All systems reviewed & are unremarkable except as noted in HPI and below PMFSH Past Medical History Medical History BMI 27.0-27.9,adult History of recent hospitalization BMI 26.0-26.9,adult Abnormal echocardiogram Newly recognized murmur CVA (cerebral vascular accident) BMI 29.0-29.9,adult Hyperlipidemia Field's palsy Otitis media BMI 30.0-30.9,adult BMI 28.0-28.9,adult BMI 29.0-29.9,adult Acute cerebral infarction Hypothyroidism (acquired) Uncontrolled type 2 diabetes mellitus with hyperglycemia Surgical History Surgical History History of tonsillectomy H/O left knee surgery S/P foot surgery, left Family History Family History Mother Diabetes mellitus Cerebrovascular accident Family history of pancreatic cancer Family history of thyroid disease Father Hypertension Family history of elevated blood lipids Diabetes mellitus Aphasia Parkinson's disease Sibling Diabetes mellitus TIA (transient ischemic attack) Social History Social History Social History: The patient works at a [employer]. The patient lives with her father and she has 3 sons. The patient is a lifelong nonsmoker. She does not use any marijuana, alcohol or illicit drugs. Patient desires to be a full code. 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 Gender identity (if verbalized by the patient): Female Spiritual care concerns: No Meds Home Medications and Allergies Home Medications ?Medication ?Instructions ?Recorded ?Confirmed ?Type dulaglutide 0.75 mg/0.5 mL 0.75 mg (0.5 mL) subcut WEEKLY #6 09/19/23 01/16/25 Rx subcutaneous pen injector mL (Trulicity) metformin 500 mg tablet,extended 2,000 mg (4 x 500 mg) PO DAILY 01/02/24 01/16/25 Rx release 24 hr #360 tabs levothyroxine 137 mcg tablet 137 mcg PO DAILY #90 tabs 08/26/24 01/16/25 Rx lisinopril 10 mg tablet 10 mg PO DAILY #90 tabs 10/07/24 01/16/25 Rx omeprazole 40 mg capsule,delayed 40 mg PO BID #180 caps 10/23/24 01/16/25 Rx release atorvastatin 80 mg tablet (Lipitor) 80 mg PO DAILY #90 tabs 01/05/25 01/16/25 Rx aspirin 81 mg tablet,delayed 81 mg PO BID 01/16/25 01/16/25 History release (Adult Low Dose Aspirin) Allergies Allergy/AdvReac Type Severity Reaction Status Date / Time etodolac Allergy Severe Numbness Verified 01/16/25 13:20 ibuprofen Allergy Unknown Palpitation Verified 01/16/25 13:20 s poison janet extract Allergy Unknown Unknown Verified 01/16/25 13:20 prednisone Allergy Unknown Unknown Verified 01/16/25 13:20 tramadol Allergy Unknown Unknown Verified 01/16/25 13:20 topiramate AdvReac Unknown Elevated Verified 01/16/25 13:20 glucose Lodine Allergy Intermediate Unresponsiv Uncoded 01/16/25 18:49 e Vital Signs Vital Signs - 24 hr 01/17/25 11:54 01/17/25 13:48 01/17/25 16:00 Temperature 36.7 C Pulse Rate 67 71 Respiratory Rate 18 Blood Pressure 149/69 H Pulse Oximetry 98 99 Oxygen Delivery Room Air 01/17/25 20:00 01/17/25 20:00 01/17/25 20:12 Temperature Pulse Rate 65 Respiratory Rate Blood Pressure Pulse Oximetry 99 Oxygen Delivery Room Air Room Air 01/17/25 23:02 01/18/25 00:00 01/18/25 04:00 Temperature 36.8 C Pulse Rate 69 61 62 Respiratory Rate 16 Blood Pressure 131/42 L Pulse Oximetry 99 Oxygen Delivery 01/18/25 04:38 Temperature 36.6 C Pulse Rate 60 Respiratory Rate 16 Blood Pressure 121/60 Pulse Oximetry 96 Oxygen Delivery Exam 2 Narrative: Examination today revealed her to be awake alert in no obvious acute distress, oriented x4, his speech not dysphasic not dysarthric not dysphonic, cooperative in no obvious signs of distress or depression, his speech not dysphasic not dysarthric not dysphonic, head normocephalic with no bruit, ear nose throat examination normal, neck supple with no bruit, heart regular with no murmur, lungs clear, abdomen is soft with no organomegaly, neurologically she is awake alert oriented x4, his speech not dysphasic not dysarthric not dysphonic, pupils round regular react to light equally, extraocular movements full with no nystagmus feels the vision intact in all 4 quadrants facial sensation intact face symmetrical tongue midline uvula midline motor examination revealed normal strength and tone in upper and lower extremities reflexes symmetrical plantars downgoing no evidence of gross sensory or cerebellar deficit. Results Labs 01/18/25 06:02 01/18/25 06:02 Labs: Short CBC 01/18/25 Range/Units 06:02 WBC 4.2 L (4.5-10.0) K/mm3 Hgb 11.1 L (12.0-15.0) g/dL Hct 33.1 L (37.0-47.0) % Plt Count 211 (150-375) k/mm3 BMP 01/18/25 06:02 Sodium 141 Potassium 3.6 Chloride 105 Carbon Dioxide 29 BUN 8 Creatinine 0.81 Glucose 105 Calcium 8.4 Liver Function 01/18/25 Range/Units 06:02 Total Bilirubin 0.7 (0.2-1.3) mg/dL AST 18 (14-36) U/L ALT 13 (6-35) U/L Alkaline Phosphatase 78 (38-126) U/L Albumin 3.5 (3.5-5.1) g/dL
[2025-01-18 12:13] LABS: Glucose Point of Care 89 mg/dl (65-105)
[2025-01-18 17:19] LABS: Glucose Point of Care 119 mg/dl (65-105)
[2025-01-18 20:11] LABS: Glucose Point of Care 140 mg/dl (65-105)
--- NOTE | 2025-01-18 20:41 | ECG_ITS ---
Test Date: 2025-01-18 20:57:25 Measurements Intervals [place] Rate: 75 P: 37 MN: 170 QRS: -1 QRSD: 106 T: 24 QT: 388 QTc: 434 Interpretive Statements SINUS RHYTHM LOW QRS VOLTAGE IN PRECORDIAL LEADS BASELINE ARTIFACT- I, II, III, AVR, AVL, V3-V6 BORDERLINE ECG Compared to ECG 01/16/2025 13:19:29 Low QRS voltage now present Electronically Signed On 01-19-2025 07:47:22 CDT by Roberto Hammer D.O.
--- NOTE | 2025-01-18 20:58 | ECG_ITS ---
Test Date: 2025-01-18 20:58:28 Measurements Intervals [place] Rate: 69 P: 36 [place]: 168 QRS: -2 QRSD: 94 T: 23 QT: 390 QTc: 418 Interpretive Statements SINUS RHYTHM LOW QRS VOLTAGE IN PRECORDIAL LEADS BORDERLINE T WAVE ABNORMALITY- ANTERIOR LEADS BASELINE ARTIFACT- I, II, III, AVR, AVL, V4-V6 BORDERLINE ECG Compared to ECG 01/18/2025 20:57:25 No significant changes Electronically Signed On 01-19-2025 07:21:02 CDT by Roberto Hammer D.O.
--- NOTE | 2025-01-18 21:00 | ECG_ITS ---
Test Date: 2025-01-18 21:00:13 Measurements Intervals [place] Rate: 69 P: 28 [place]: 153 QRS: -1 QRSD: 96 T: 20 QT: 386 QTc: 415 Interpretive Statements SINUS RHYTHM LOW QRS VOLTAGE IN PRECORDIAL LEADS BASELINE ARTIFACT- I, II, AVR, AVL, AVF BORDERLINE ECG Compared to ECG 01/18/2025 20:58:28 NO SIGNIFICANT CHANGE Electronically Signed On 01-19-2025 07:21:32 CDT by Roberto Hammer D.O.
[2025-01-18] MEDS: CALCIUM CARBONATE (TUMS) 500 MG (200 MG ELEMENTAL) 400 MG PO (21:05)
[2025-01-18] MEDS: NITROGLYCERIN SL 0.4 MG TABLET SUBLINGUAL (21:06)
[2025-01-18 21:40] LABS: NT Pro B Type Natriuretic Pept 141 pg/mL (19.9-100); Troponin I < 0.012 ng/mL (0.000-0.034)
[2025-01-19] VITALS: PULSE 58
[2025-01-19 04:00] VITALS: PULSE 63
[2025-01-19 06:00] VITALS: BP 126/66; PULSE 67; RESP 18; TEMP 36.1; O2SAT 95
[2025-01-19] MEDS: LEVOTHYROXINE SODIUM 25 MCG TABLET PO (06:21)
[2025-01-19] MEDS: LEVOTHYROXINE SODIUM 112 MCG TABLET PO (06:21)
[2025-01-19 06:22] LABS: Basophils Absolute Auto 0.1 K/mm3 (0.0-0.1); Eosinophils Absolute Auto 0.2 K/mm3 (0-0.3); Eosinophils Percent Auto 4.6 % (0-4.4); Hematocrit 33.8 % (37.0-47.0); Hemoglobin 11.2 g/dL (12.0-15.0); Immature Granulocyte Absolute 0.01 K/mm3 (0.00-0.031); Immature Granulocyte Percent A 0.2 % (0-0.5); Lymphocytes Absolute Auto 1.36 K/mm3 (0.9-3.2); Lymphocytes Percent Auto 26.2 % (18.3-44.2); Mean Corpuscular HGB Conc 33.1 g/dl (32-36); Mean Corpuscular Volume 90.6 fl (80-100); Mean Platelet Volume 8.5 fl (7.4-10.4); Monocytes Absolute Auto 0.3 K/mm3 (0.1-0.6); Monocytes Percent Auto 5.8 % (2.6-8.5); Neutrophils Absolute Auto 3.2 K/mm3 (1.3-6.7); Neutrophils Percent Auto 62.2 % (45.5-73.1); Platelet Count Result 214 k/mm3 (150-375); Red Blood Count 3.73 M/mm3 (4.2-5.4); Red Cell Distribution Width 13.2 % (11.5-14.5); White Blood Count 5.2 K/mm3 (4.5-10.0)
[2025-01-19 06:31] LABS: Alanine Aminotransferase 14 U/L (6-35); Albumin Level 3.8 g/dL (3.5-5.1); Alkaline Phosphatase 80 U/L (38-126); Anion Gap 7 mmol/L (4-12); Aspartate Amino Transferase 19 U/L (14-36); Bilirubin,Total 0.7 mg/dL (0.2-1.3); Blood Urea Nitrogen 10 mg/dL (7-17); Calcium 8.9 mg/dL (8.4-10.2); Carbon Dioxide 27 mmol/L (22-30); Chloride 105 mmol/L (98-107); Estimated CRCL calculation 56 ml/min; Estimated Glomerular Filt Rate > 60; Glucose 129 mg/dL (65-110); Potassium 3.4 mmol/L (3.4-5.0); Sodium 139 mmol/L (137-145)
[2025-01-19 07:52] LABS: Glucose Point of Care 120 mg/dl (65-105)
[2025-01-19 08:00] VITALS: PULSE 63
[2025-01-19] MEDS: ATORVASTATIN 40 MG TABLET 80 MG PO (09:20)
[2025-01-19] MEDS: PANTOPRAZOLE 40 MG TABLET PO (09:20)
[2025-01-19] MEDS: ASPIRIN 81 MG ENTERIC TABLET PO (09:20)
[2025-01-19] MEDS: lisinopriL 10 MG TABLET PO (09:21)
--- NOTE | 2025-01-19 10:38 | P.DS_ITS ---
DS: Admitting Diagnosis Discharge Date 01/19 Admitting Diagnosis dizzy DS: Discharge Diagnosis Discharge Diagnosis (1) Essential hypertension: Code(s): I10 - Essential (primary) hypertension Status: Acute (2) Vertigo: Code(s): R42 - Dizziness and giddiness Status: Acute (3) Hyperlipidemia: Code(s): E78.5 - Hyperlipidemia, unspecified Status: Chronic DS: Summary Hospital Course Hospital Course: Angella Ward a 64-year-old female with a medical history significant for dyslipidemia, diabetes, hypothyroidism, hypertension and GERD, CVA is admitted for dizziness/vertigo Acute and principal conditions 1. Dizziness; Vertigo 2. Mild UTI Rx: A. MRI brain- Left basal ganglia lacunar infarct. No acute intracranial process or abnormally enhancing brain lesions. B. Meclizine C. PT for vestibular evaluation-ordered D. neurology consulted- no acute interventions. Possibility of vestibular distal function for which physical therapy has been ordered. At this stage she is receiving aspirin 81mg b.i.d., atorvastatin 80mg daily Trulicity is 0.75mg subQ weekly and levothyroxine 137mcg daily, lisinopril 10mg daily, and vitamin B12 1000mcg p.o. daily, in addition to metformin and omeprazole the treatment will be continued as such. echo was done over 1 year ago and recommended to be repeated, ordered- and no acute changes. e. continue asa, statin 80 mg - will order echo- done- no acute changes stable for discharge Status at Discharge Functional status at discharge: independent ambulation Overall status at discharge: patient is progressing back to baseline Time Spent with Patient Time attestation: Total time spent providing and/or coordinating discharge services: Time spent: Less than 30 minutes Exam Const: General: comfortable Eyes: General: appearance normal, both eyes and all related structures Resp: Effort & Inspection: normal respiratory effort Auscultation: clear to auscultation bilaterally Cardio: Rate: regular rate Rhythm: regular rhythm GI: Auscultation: normal bowel sounds Skin: General skin exam: normal color DS: Data Data Completed and Pending Completed studies during hospitalization: echo Labs on day of discharge: Labs from last 24 hours 01/19/25 01/19/25 01/18/25 07:47 06:08 21:11 WBC 5.2 RBC 3.73 L Hgb 11.2 L Hct 33.8 L MCV 90.6 MCH 30.0 MCHC 33.1 RDW 13.2 Plt Count 214 MPV 8.5 Immature Gran % (Auto) 0.2 Neut % (Auto) 62.2 Lymph % (Auto) 26.2 [place] % (Auto) 5.8 Eos % (Auto) 4.6 H Baso % (Auto) 1.0 Lymph # (Auto) 1.36 [place] # (Auto) 0.3 Eos # (Auto) 0.2 Baso # (Auto) 0.1 Abs Immat Gran (auto) 0.01 Absolute Neuts (auto) 3.2 Absolute Nucleated RBC 0.000 Nucleated RBC % 0.0 Sodium 139 Potassium 3.4 Chloride 105 Carbon Dioxide 27 Anion Gap 7 BUN 10 Creatinine 0.80 Estim Creat Clear Calc 56 Estimated GFR > 60 Glucose 129 H POC Capillary Glucose 120 H Calcium 8.9 Total Bilirubin 0.7 AST 19 ALT 14 Alkaline Phosphatase 80 Troponin I < 0.012 NT-Pro-B Natriuret Pep 141 H Total Protein 7.0 Albumin 3.8 01/18/25 01/18/25 01/18/25 19:52 17:14 11:55 WBC RBC Hgb Hct MCV MCH MCHC RDW Plt Count MPV Immature Gran % (Auto) Neut % (Auto) Lymph % (Auto) [place] % (Auto) Eos % (Auto) Baso % (Auto) Lymph # (Auto) [place] # (Auto) Eos # (Auto) Baso # (Auto) Abs Immat Gran (auto) Absolute Neuts (auto) Absolute Nucleated RBC Nucleated RBC % Sodium Potassium Chloride Carbon Dioxide Anion Gap BUN Creatinine Estim Creat Clear Calc Estimated GFR Glucose POC Capillary Glucose 140 H 119 H 89 Calcium Total Bilirubin AST ALT Alkaline Phosphatase Troponin I NT-Pro-B Natriuret Pep Total Protein Albumin Discharge Plan Discharge Attending physician on discharge: Harish Marie Consulting providers: Will Ferguson Discharging Clinician: Robny Shaw Patient Disposition: Home Activity: may shower Diet: regular Discharge Instructions: You were admitted for dizziness. We didnot find any new issues that could of aggravated your problem. As you had this for a long time, please continue to work closely with your pcp for further management. we repeated ECHO and it didnot show any new issues. Patient Instructions: Antibiotic Form Patient Language: Frisian Stand Alone Forms: General Discharge Information Follow-up/Referrals: Adalberto Mcdermott MD [Primary Care Provider] - 2 Weeks Discharge Medications: Continued levothyroxine 137 mcg tablet 137 mcg PO DAILY Qty: 90 1RF Trulicity 0.75 mg/0.5 mL pen injector 0.75 mg subcut WEEKLY Qty: 6 6RF metformin 500 mg tablet extended release 24 hr 2,000 mg PO DAILY Qty: 360 0RF aspirin [Adult Low Dose Aspirin] 81 mg tablet,delayed release (DR/EC) 81 mg PO BID lisinopril 10 mg tablet 10 mg PO DAILY Qty: 90 1RF omeprazole 40 mg capsule,delayed release(DR/EC) 40 mg PO BID Qty: 180 1RF atorvastatin [Lipitor] 80 mg tablet 80 mg PO DAILY Qty: 90 3RF Date of admission: 01/16/25 22:04 Primary Care Provider: Adalberto Mcdermott Admitting Provider: Titi Luevano Attending physician on admission: Titi Luevano Condition: Stable
[2025-01-19 11:51] LABS: Glucose Point of Care 106 mg/dl (65-105)
== END 2025-01-19 13:10 | disposition home or self-care (01) ==
LOC: ANHED 16:12 → ANH2MED 01-17 05:18
PROVIDERS: Admitting Provider Internal Medicine; Emergency Provider Student in an Organized Health Care Education/Training Program; PCP Family Medicine; Visit Provider General Practice
DX: R42 Dizziness and giddiness (principal); N39.0 Urinary tract infection, site not specified; I10 Essential (primary) hypertension; E78.5 Hyperlipidemia, unspecified; E11.49 Type 2 diabetes mellitus with other diabetic neurological complication; E11.65 Type 2 diabetes mellitus with hyperglycemia; D64.9 Anemia, unspecified; E03.9 Hypothyroidism, unspecified; K21.9 Gastro-esophageal reflux disease without esophagitis; E66.9 Obesity, unspecified; H93.13 Tinnitus, bilateral; Z68.30 Body mass index [BMI] 30.0-30.9, adult; Z86.73 Personal history of transient ischemic attack (TIA), and cerebral infarction without residual deficits; Z98.890 Other specified postprocedural states; Z79.82 Long term (current) use of aspirin; Z79.84 Long term (current) use of oral hypoglycemic drugs; Z79.85 Long-term (current) use of injectable non-insulin antidiabetic drugs; Z79.899 Other long term (current) drug therapy
CPT/HCPCS: 36415; 70450; 70496; 70498; 70553; 71045; 80053; 81001; 82948; 83880; 84484; 85025; 87086; 93005; 93306; 96361; 96372; 96374; 96375; 97161; 97530; 99285; A9270; A9579; G0378; J1644; J2550; J3360; J7030; Q9967